=== PATIENT | female | born 1945 | race Caucasian/White ===

== ENCOUNTER → 2019-10-20 | Outpatient (CLI) | payer MEDICARE ==
--- NOTE | 2019-10-20 14:09 | MR ---
EXAMINATION TYPE: MR knee RT wo con DATE OF EXAM: 10/20/2019 COMPARISON: None HISTORY: Right knee pain TECHNIQUE: Multiplanar, multisequence imaging of the right knee is performed without IV contrast. FINDINGS: Some motion artifact does limit the images and interpretation. MEDIAL MENISCUS: There is a complex tear of the posterior horn of the medial meniscus with both obliq ue, radial, and longitudinal components. There is associated meniscal extrusion of 3 mm. Fluid is see n surrounding the meniscus without well-formed cyst. LATERAL MENISCUS: Anterior and posterior horns are intact without tear. CRUCIATE LIGAMENTS: The anterior and posterior cruciate ligaments are intact. There is high signal th roughout the mid and distal fibers of the anterior cruciate ligament without discontinuity. COLLATERAL LIGAMENTS: There is high signal seen both superficial and deep to the mid and posterior fi bers of the medial collateral ligament. The most posterior fibers are discontinuous at their insertio n. Low-grade partial-thickness tear and mid grade sprain. The lateral collateral ligament complex is intact and unremarkable. EXTENSOR MECHANISM: Visualized quadriceps and patellar tendons are intact. High signal is seen of the insertional fibers of the patellar tendon. EFFUSION: No significant suprapatellar joint effusion. POPLITEAL CYST: Elongated multiloculated popliteal cyst measuring 6.3 cm. TRICOMPARTMENT SPACES: There is tricompartmental joint space narrowing with small marginal osteophyte s. Findings are greatest in the patellofemoral compartment. CARTILAGE: There is full-thickness chondral loss of the weightbearing surface of the medial femoral c ondyle measuring 1.2 x 1.2 cm. There is global thinning of the medial compartment cartilage. The late ral compartment cartilage demonstrates signal heterogeneity without focal full-thickness defect. The patellofemoral cartilage demonstrates full-thickness chondral defect of the lateral facet measuring 8 mm with underlying early subchondral cysts and foci of bone marrow edema. Small fissures are seen in the medial facet and trochlea. BONE MARROW SIGNAL: Medial tibial plateau subchondral cyst and patellar subchondral cysts are seen. OTHER: Nonspecific prepatellar and peripatellar subcutaneous edema. Incidentally noted lateral subcu taneous varicosities. IMPRESSION: 1. Low-grade partial-thickness tear of the posterior insertional fibers of the medial collateral liga ment and mid grade medial collateral ligament sprain. 2. Complex tear of the posterior horn of the medial meniscus with associated meniscal extrusion. 3. Moderate tricompartmental arthropathy and chondrosis with full-thickness cartilaginous defects of the medial compartment and lateral patellar facet. 4. Insertional tendinosis of the patellar tendon and overlying subcutaneous edema. 5. Low-grade anterior cruciate ligament sprain.
== END | disposition home or self-care (01) ==
LOC: RADMRIMAIN 08:50
PROVIDERS: ATTEND Orthopaedic Surgery Adult Reconstructive Orthopaedic Surgery
DX: S83.241A Other tear of medial meniscus, current injury, right knee, initial encounter (principal); S83.411A Sprain of medial collateral ligament of right knee, initial encounter; S83.511A Sprain of anterior cruciate ligament of right knee, initial encounter; M17.11 Unilateral primary osteoarthritis, right knee; M67.863 Other specified disorders of tendon, right knee

== ENCOUNTER 2020-11-25 07:34 | Inpatient (IN) | payer MEDICARE ==
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
[2020-11-25 08:20] LABS: Basophils # (A) 0.1 k/uL (0-0.2); Basophils % (A) 1 %; Eosinophils # (A) 0.1 k/uL (0-0.7); Eosinophils % (A) 1 %; HCT 42.2 % (34.0-46.0); HGB 14.1 gm/dL (11.4-16.0); Lymphocytes # (A) 1.5 k/uL (1.0-4.8); Lymphocytes % (A) 12 %; MCH 30.3 pg (25.0-35.0); MCHC 33.4 g/dL (31.0-37.0); MCV 90.8 fL (80.0-100.0); Mean Platelet Volume 7.4; Monocytes # (A) 0.8 k/uL (0-1.0); Monocytes % (A) 6 %; Neutrophils # (A) 9.6 k/uL (1.3-7.7); Neutrophils % (A) 78 %; Platelet Count 221 k/uL (150-450); RBC 4.65 m/uL (3.80-5.40); RDW 13.1 % (11.5-15.5); WBC 12.2 k/uL (3.8-10.6)
[2020-11-25 08:30] LABS: Calcium 9.2 mg/dL (8.4-10.2); Magnesium 1.7 mg/dL (1.6-2.3); Potassium 4.2 mmol/L (3.5-5.1); Total Protein 7.1 g/dL (6.3-8.2)
--- NOTE | 2020-11-25 08:37 | XR ---
EXAMINATION TYPE: XR chest 2V DATE OF EXAM: 11/25/2020 COMPARISON: NONE HISTORY: Shortness of breath TECHNIQUE: Frontal and lateral views of the chest are obtained. FINDINGS: Scattered senescent parenchymal changes noted. Hyperinflation compatible with COPD. No evidence for infiltrate. No evidence for atelectasis. Heart size is stable. Mediastinal structures are stable and grossly unremarkable. No evidence for hilar prominence. Degenerative changes dorsal spine. IMPRESSION: 1. No evidence for acute pulmonary disease.
[2020-11-25 08:39] LABS: D-Dimer 0.29 mg/L FEU (<0.60); Prothrombin Time 10.8 sec (9.0-12.0)
[2020-11-25] MEDS ORDERED: NALOXONE 0.4 MG/ML 1 ML VIAL IV PRN (10:19)
[2020-11-25 10:41] LABS: T4, Free (Free Thyroxine) 1.7 ng/dL (0.78-2.19)
[2020-11-25] MEDS ORDERED: BUMETANIDE 0.5 MG TABLET PO PRN (11:40)
[2020-11-25] MEDS ORDERED: METOPROLOL TARTRATE 25 MG TAB PO SCH (11:45)
[2020-11-25] MEDS ORDERED: ATORVASTATIN 20 MG TAB PO SCH (11:45)
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
[2020-11-25] MEDS: LEVOTHYROXINE 75 MCG TAB PO SCH (12:15)
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
[2020-11-25] MEDS: METOPROLOL TARTRATE 50 MG TAB PO SCH ×2 (14:17→22:31)
[2020-11-25] MEDS: PROPAFENONE 150 MG TAB PO SCH ×2 (15:42→22:28)
[2020-11-25] MEDS ORDERED: METOPROLOL TARTRATE 50 MG TAB PO SCH (21:00)
[2020-11-25] MEDS: ATORVASTATIN 20 MG TAB PO SCH (22:28)
[2020-11-25] MEDS: APIXABAN 5 MG TAB PO SCH (22:28)
[2020-11-26] MEDS: LEVOTHYROXINE 75 MCG TAB PO SCH (05:15)
[2020-11-26] MEDS ORDERED: AMINOPHYLLINE 500 MG/20 ML VIAL IV PRN (08:25)
[2020-11-26] MEDS ORDERED: REGADENOSON 0.4 MG/5 ML SYRINGE IV PRN (08:25)
[2020-11-26] MEDS ORDERED: CAFFEINE CITRATE 60 MG/3 ML VIAL IV PRN (08:25)
[2020-11-26] MEDS: PROPAFENONE 150 MG TAB PO SCH ×3 (08:26→21:00)
[2020-11-26] MEDS: APIXABAN 5 MG TAB PO SCH ×2 (08:27→21:00)
[2020-11-26] MEDS: LOSARTAN 50 MG TAB PO SCH (08:27)
[2020-11-26] MEDS: POTASSIUM CHLORIDE ER 10 MEQ TAB.ER.PRT PO SCH (08:27)
[2020-11-26] MEDS: METOPROLOL TARTRATE 50 MG TAB PO SCH ×3 (08:27→21:00)
[2020-11-26] MEDS: TIMOLOL 0.5% OPHTH DROPS 5 ML BTL BOTH EYES SCH (08:28)
[2020-11-26] MEDS: DORZOLAMIDE HCL 2% DROPS 10 ML BTL BOTH EYES SCH (08:28)
[2020-11-26 09:20] LABS: Basophils # (A) 0.04 X 10*3/uL (0.00-0.10); Basophils % (A) 0.6 %; Eosinophils # (A) 0.08 X 10*3/uL (0.04-0.35); Eosinophils % (A) 1.2 %; HCT 37.1 % (37.2-46.3); HGB 11.8 g/dL (12.0-15.0); Lymphocytes # (A) 1.92 X 10*3/uL (0.90-5.00); MCH 29.3 pg (27.0-32.0); MCHC 31.8 g/dL (32.0-37.0); MCV 92.1 fL (80.0-97.0); Mean Platelet Volume 10.5 fL (9.5-12.2); Monocytes # (A) 0.88 X 10*3/uL (0.20-1.00); Monocytes % (A) 12.8 %; Neutrophils # (A) 3.91 X 10*3/uL (1.80-7.70); Neutrophils % (A) 57.1 %; Platelet Count 194 X 10*3/uL (140-440); RBC 4.03 X 10*6/uL (4.10-5.20); RDW 13.4 % (11.5-14.5); WBC 6.85 X 10*3/uL (4.50-10.00)
--- NOTE | 2020-11-26 10:00 | ECHOF ---
Referral Reason:sob MEASUREMENTS -------- HEIGHT: 165.1 cm WEIGHT: 106.6 kg BP: IVSd: 1.3 cm (0.6 - 1.1) LVIDd: 3.3 cm (3.9 - 5.3) LVPWd: 1.5 cm (0.6 - 1.1) IVSs: 1.9 cm LVIDs: 2.9 cm LVPWs: 1.7 cm LAESV Index (A-L): 40.14 ml/m Ao Diam: 3.6 cm (2.0 - 3.7) AV Cusp: 1.9 cm (1.5 - 2.6) MV EXCURSION: 17.722 mm (> 18.000) MV EF SLOPE: 128 mm/s (70 - 150) EPSS: 0.4 cm RAP: 5.00 mmHg RVSP: 27.13 mmHg FINDINGS -------- Atrial fibrillation. This was a technically adequate study. The left ventricular size is normal. There is mild concentric left ventricular hypertrophy. Overa ll left ventricular systolic function is low-normal with, an EF between 50 - 55 %. The right ventricle is normal in size. LA is severely dilated >40 ml/m2 The right atrial size is normal. There is mild aortic valve sclerosis. There is mild aortic regurgitation. The mitral valve is normal. Mild mitral regurgitation is present. The tricuspid valve appears structurally normal. Mild tricuspid regurgitation present. Right vent ricular systolic pressure is normal at < 35 mmHg. There is no pulmonic regurgitation present. The aortic root size is normal. Echo free space represents a pericardial fat pad. CONCLUSIONS -------- 1. Atrial fibrillation. 2. There is mild concentric left ventricular hypertrophy. 3. Overall left ventricular systolic function is low-normal with, an EF between 50 - 55 %. 4. LA is severely dilated >40 ml/m2 5. There is mild aortic regurgitation. 6. Mild mitral regurgitation is present. 7. Mild tricuspid regurgitation present. 8. Echo free space represents a pericardial fat pad. NURSING ASSOC: Nora Patel, VANESA
[2020-11-26 11:08] LABS: African American GFR (CKD) 84.2 (60.0-200.0); Anion Gap 10.8 mmol/L (4.00-12.00); BUN/Creat Ratio 21.25 Ratio (12.00-20.00); Calcium 8.4 mg/dL (8.7-10.3); Carbon Dioxide 24.2 mmol/L (21.6-31.8); Non-African American GFR(CKD) 72.6 (60.0-200.0); Potassium 3.9 mmol/L (3.5-5.5)
--- NOTE | 2020-11-26 11:15 | P.PN ---
Subjective HISTORY OF PRESENTING ILLNESS This is a pleasant 75-year-old female past medical history significant for atrial fibrillation on eliquis, hypertension, sleep apnea, dyslipidemia and former nitocine dependence. She follows in the office with Dr. Colin in [facility]. She is seen and examined resting comfortably in no acute distress. She continues to be in atrial fibrillation with mostly controlled ventricular rates. She continues to feel some mild shortness of breath. She denies any further sensations of chest pain. Blood pressure 137/73 heart rate 98 afebrile and maintaining oxygen saturation on room air. Office note from her primary reel winder reveals she is paroxysmal atrial fibrillation, she was in sinus mechanism when she saw him last year. Echocardiogram obtained revealed preserved LV systolic function with EF 50-55%, severely dilated LA, mild MR and mild TR. Laboratory data reviewed, WBC 6.8, hemoglobin 11.8, platelets 194, sodium 141, potassium 3.9, creatinine 0.8 and cardiac enzymes negative 3. PHYSICAL EXAMINATION CONSTITUTIONAL: No apparent distress. Obese. HEENT: Head is normocephalic. Pupils are equal, round. Sclerae anicteric. Mucous membranes of the mouth are moist. No JVD. No carotid bruit. CHEST EXAMINATION: Lungs are clear to auscultation. No chest wall tenderness is noted on palpation or with deep breathing. HEART EXAMINATION: Irregular rate and rhythm. S1, S2 heard. Soft systolic eject ion murmur at the base, no gallops or rub. Distant heart sounds. EXTREMITIES: 2+ peripheral pulses, trace lower extremity edema and no calf tenderness. ASSESSMENT Atrial fibrillation with rapid ventricular rate, unknown if persistent or paroxysmal Leukocytosis Chest pain Hypertension Dyslipidemia Obesity, BMI 39 PLAN Proceed with Lexiscan stress test to assess for reversible cardiac ischemia. If there is an abnormality noted we will consider proceeding with cardiac catheterization. Otherwise, her symptoms may be related to atrial fibrillation. She may require cardioversion or increasing of rythmol. Further recommendations to follow based on clinical course. Nurse Practitioner note has been reviewed, I agree with a documented findings and plan of care. Patient was seen and examined. Objective - Vital Signs Vital signs: Vital Signs Temp 98.1 F 11/26/20 07:33 Pulse 98 11/26/20 07:57 Resp 18 11/26/20 07:57 BP 137/73 11/26/20 07:33 Pulse Ox 97 11/26/20 07:33 Intake & Output 11/25/20 11/26/20 11/26/20 18:59 06:59 18:59 Weight 106.594 kg 106.59 kg Other: Voiding Method Toilet Toilet # Voids 2 2 - Labs CBC & Chem 7: 11/26/20 05:44 11/25/20 08:09 Labs: Abnormal Lab Results - Last 24 Hours (Table) 11/26/20 Range/Units 05:44 RBC 4.03 L (4.10-5.20) X 10*6/uL Hgb 11.8 L (12.0-15.0) g/dL Hct 37.1 L (37.2-46.3) % MCHC 31.8 L (32.0-37.0) g/dL
--- NOTE | 2020-11-26 12:20 | NM ---
EXAMINATION TYPE: NM stress lexiscan cardiolite DATE OF EXAM: 11/26/2020 COMPARISON: NONE HISTORY: Chest pain TECHNIQUE: After the intravenous administration of 9.7 mCi Tc 99m Sestamibi - Cardiolite resting SPE CT images acquired 60 minutes post injection. The patient received 0.4mg Lexiscan, 25.5 mCi Tc 99m Sestamibi - Stress images obtained [address] injection FINDINGS: There is diminished radiotracer accumulation along the anterior wall within the mid to distal portion of the stress images. This has milder diminished radiotracer on the resting images. Some stress-laurie esther ischemic change should be considered. On the stress images near the cardiac base there is some diminished radiotracer accumulation at the a nteroseptal wall which has better visualization on the resting images which can be some additional st ress-induced ischemic change. Correlate with EKG changes. Radiotracer distribution otherwise appears matched without additional stress-induced ischemic changes . Polar maps appear to underestimate the apparent defects. Gated analysis shows estimated left ventricular ejection fraction of 67 %. Dyskinesia of the anterior wall at the cardiac apex is present. IMPRESSION: 1. Mid to distal anterior wall stress-induced ischemic change to mild degree. Correlate with EKG ray ges. 2. Some anterior septal wall defect may be present near the cardiac base. 3. Normal ejection fraction of 67%. 4. Dyskinesia of the anterior wall near the cardiac apex
--- NOTE | 2020-11-26 13:00 | EST ---
EXERCISE STRESS AGE: 75 SEX: Female HT: 5'5" WT: 234 PROTOCOL: Lexiscan STAGE: N/A DURATION OF EXERCISE: 5 min. HEART RATE REST: 80 BLOOD PRESSURE REST: 116/95 MAXIMUM HEART RATE ACHIEVED: 85 MAXIMUM BLOOD PRESSURE: 121/81 85% MPHR: 124 100% MPHR: 146 METS: N/A INDICATIONS: Afib with RVR, chest pain CLINICAL INFORMATION: Baseline rhythm is atrial fibrillation with right bundle branch block, rate of 80. Baseline blood pressure 116/95 mmHg. Patient received injection of Lexiscan. Electrocardiograph monitoring revealed no evidence of diagnostic ischemic ST deviation. Cardiolite was injected per protocol. CONCLUSION: 1. Nondiagnostic electrocardiograph stress testing. 2. Nuclear images will be reported separately. MMODL / IJN: [id number] /
--- NOTE | 2020-11-26 14:40 | P.PN ---
Progress Note - Text Abnormal stress test results discussed with the patient and her sister who is at the bedside. The patient was given the option of having a left heart catheterization here with Dr. Urrutia or going to have it done with her primary interactive art director. She would like to think and talk more in depth with her family before making a decision. If she opts for Dr. Urrutia we would recommend holding her anti-coagulation and initiating IV heparin for the procedure to be done Sunday.
--- NOTE | 2020-11-26 16:35 | P.PN ---
Subjective Progress Note Date: 11/26/20 Patient is doing well today. She denies any chest pain or shortness of breath. Objective - Vital Signs Vital signs: Vital Signs Temp 98 F 11/26/20 15:00 Pulse 88 11/26/20 15:00 Resp 18 11/26/20 15:00 BP 119/78 11/26/20 15:00 Pulse Ox 97 11/26/20 15:00 Intake & Output 11/25/20 11/26/20 11/26/20 18:59 06:59 18:59 Weight 106.594 kg 106.59 kg Other: Voiding Method Toilet Toilet # Voids 2 1 - Exam General: The patient is awake and alert, in no distress Eye: there is normal conjunctiva bilaterally. Neck: The neck is supple, there is no JVD. Cardiovascular: Normal S1-S2, no S3-S4, no murmurs. Respiratory: Lungs clear to auscultation bilaterally Gastrointestinal: Abdomen is soft, nontender Musculoskeletal: There is no pedal edema. Neurological:. Speech is normal. Skin: Skin is warm and dry - Labs CBC & Chem 7: 11/26/20 05:44 11/26/20 05:44 Labs: Abnormal Lab Results - Last 24 Hours (Table) 11/26/20 11/26/20 Range/Units 05:44 05:44 RBC 4.03 L (4.10-5.20) X 10*6/uL Hgb 11.8 L (12.0-15.0) g/dL Hct 37.1 L (37.2-46.3) % MCHC 31.8 L (32.0-37.0) g/dL BUN/Creatinine Ratio 21.25 H (12.00-20.00) Ratio Calcium 8.4 L (8.7-10.3) mg/dL Assessment and Plan Assessment: 1. Paroxysmal atrial fibrillation with rapid ventricular response, patient was seen and evaluated by cardiology. Metoprolol dose increased to 50 mg twice daily. Continue home dose of Rythmol. 2. Chest tightness, patient had the stress test that was mildly positive. She was offered left heart catheterization here in the hospital Sunday versus going home and following up with her roof slater but she elected to stay in the hospital for left heart cath on Sunday 3. Back pain, now resolved. with degenerative joint disease noted on x-ray. May use Tylenol as needed. 3. Hypothyroidism: Continue home dose of Synthroid. Thyroid function test within normal/acceptable range 4. Hypertension, continue home regimen Today, I reviewed her medication list and lab work results. Continue telemetry monitoring. Patient is full code.
[2020-11-26] MEDS: ATORVASTATIN 20 MG TAB PO SCH (21:00)
[2020-11-27] MEDS: LEVOTHYROXINE 75 MCG TAB PO SCH (05:37)
[2020-11-27] MEDS: LOSARTAN 50 MG TAB PO SCH (08:07)
[2020-11-27] MEDS: PROPAFENONE 150 MG TAB PO SCH ×3 (08:08→21:14)
[2020-11-27] MEDS: METOPROLOL TARTRATE 50 MG TAB PO SCH ×2 (08:08→21:14)
[2020-11-27] MEDS: DORZOLAMIDE HCL 2% DROPS 10 ML BTL BOTH EYES SCH (08:10)
[2020-11-27] MEDS: TIMOLOL 0.5% OPHTH DROPS 5 ML BTL BOTH EYES SCH (08:10)
[2020-11-27] MEDS: POTASSIUM CHLORIDE ER 10 MEQ TAB.ER.PRT PO SCH (08:13)
[2020-11-27] MEDS ORDERED: HEPARIN SODIUM,PORCINE 5,000 UNIT/ML 1 ML VIAL IV ONE (10:11)
[2020-11-27] MEDS ORDERED: ALPRAZolam 0.5 MG TAB PO PRN (10:48)
[2020-11-27] MEDS ORDERED: ALPRAZolam 0.25 MG TAB PO PRN (10:48)
[2020-11-27] MEDS ORDERED: SODIUM CHLORIDE 0.9% 1,000 ML in EMPTY BAG 1 BAG IV ONE (10:48)
[2020-11-27] MEDS ORDERED: NITROGLYCERIN SL TABS 0.4 MG TAB SUBLINGUAL PRN (10:48)
--- NOTE | 2020-11-27 10:50 | P.PN ---
Subjective Progress Note Date: 11/27/20 HISTORY OF PRESENTING ILLNESS This is a pleasant 75-year-old female past medical history significant for atrial fibrillation on eliquis, hypertension, sleep apnea, dyslipidemia and former nitocine dependence. She follows in the office with Dr. Colin in [facility]. She is seen and examined resting comfortably in no acute distress. She continues to be in atrial fibrillation with mostly controlled ventricular rates. She continues to feel some mild shortness of breath. She denies any further sensations of chest pain. Blood pressure 137/73 heart rate 98 afebrile and maintaining oxygen saturation on room air. Office note from her primary aerologist reveals she is paroxysmal atrial fibrillation, she was in sinus mechanism when she saw him last year. Echocardiogram obtained revealed preserved LV systolic function with EF 50-55%, severely dilated LA, mild MR and mild TR. Laboratory data reviewed, WBC 6.8, hemoglobin 11.8, platelets 194, sodium 141, potassium 3.9, creatinine 0.8 and cardiac enzymes negative 3. 11/27: Patient received her last dose of eliquis last evening. Heparin drip will be started this morning. Patient complains of discomfort in the upper back right side today which she thinks is related to the bed. She is found sitting in recliner. She denies any chest pain. She does have shortness of breath with activity such as walking to the bathroom. Heart rate is running in the 80s and 90s, blood pressure 141/78, pulse ox 96% on room air. PHYSICAL EXAMINATION CONSTITUTIONAL: No apparent distress. Obese. HEENT: Head is normocephalic. Pupils are equal, round. Sclerae anicteric. Mucous membranes of the mouth are moist. No JVD. No carotid bruit. CHEST EXAMINATION: Lungs are clear to auscultation. No chest wall tenderness is noted on palpation or with deep breathing. HEART EXAMINATION: Irregular rate and rhythm. S1, S2 heard. Soft systolic ejection murmur at the base, no gallops or rub. Distant heart sounds. EXTREMITIES: 2+ peripheral pulses, trace lower extremity edema and no calf tenderness. ASSESSMENT Atrial fibrillation with rapid ventricular rate, unknown if persistent or paroxysmal Leukocytosis Chest pain Hypertension Dyslipidemia Obesity, BMI 39 PLAN Lexiscan stress test was abnormal and patient was provided option of heart catheterization which is scheduled for Sunday with Dr. Samman Continue brass chaser Further recommendations to follow based on clinical course. Nurse Practitioner note has been reviewed, I agree with a documented findings and plan of care. Patient was seen and examined. Objective - Vital Signs Vital signs: Vital Signs Temp 98.1 F 11/27/20 07:00 Pulse 90 11/27/20 07:00 Resp 16 11/27/20 07:00 BP 141/78 11/27/20 07:00 Pulse Ox 96 11/27/20 07:00 Intake & Output 11/26/20 11/27/20 11/27/20 18:59 06:59 18:59 Weight 106.59 kg Other: Voiding Method Toilet Toilet # Voids 1 2 - Labs CBC & Chem 7: 11/26/20 05:44 11/26/20 05:44 Labs: Abnormal Lab Results - Last 24 Hours (Table) 11/26/20 Range/Units 05:44 BUN/Creatinine Ratio 21.25 H (12.00-20.00) Ratio Calcium 8.4 L (8.7-10.3) mg/dL
[2020-11-27 11:12] LABS: Partial Thromboplastin Time 23.7 sec (22.0-30.0)
--- NOTE | 2020-11-27 11:42 | P.PN ---
Subjective Progress Note Date: 11/27/20 Patient is doing well today. She denies any chest pain or shortness of breath. No acute events overnight reported by nursing staff Objective - Vital Signs Vital signs: Vital Signs Temp 98.1 F 11/27/20 07:00 Pulse 90 11/27/20 07:00 Resp 16 11/27/20 07:00 BP 141/78 11/27/20 07:00 Pulse Ox 96 11/27/20 07:00 Intake & Output 11/26/20 11/27/20 11/27/20 18:59 06:59 18:59 Weight 106.59 kg Other: Voiding Method Toilet Toilet # Voids 1 2 - Exam General: The patient is awake and alert, in no distress Eye: there is normal conjunctiva bilaterally. Neck: The neck is supple, there is no JVD. Cardiovascular: Normal S1-S2, no S3-S4, no murmurs. Respiratory: Lungs clear to auscultation bilaterally Gastrointestinal: Abdomen is soft, nontender Musculoskeletal: There is no pedal edema. Neurological:. Speech is normal. Skin: Skin is warm and dry - Labs CBC & Chem 7: 11/26/20 05:44 11/26/20 05:44 Assessment and Plan Assessment: This is a 75-year-old female with past medical history noted below who presented to the emergency room with chest tightness and back pain. Patient was evaluated in the ER and admitted to the hospital for further management of her medical problems noted below. 1. Paroxysmal atrial fibrillation with rapid ventricular response, patient was seen and evaluated by cardiology. Metoprolol dose increased to 50 mg twice daily. Continue home dose of Rythmol. 2. Chest tightness, patient had the stress test that was mildly positive. She is scheduled for left heart catheterization on Sunday. 3. Back pain, now resolved. with she degenerative joint disease noted on x- ray. May use Tylenol as needed. 3. Hypothyroidism: Continue home dose of Synthroid. Thyroid function test within normal/acceptable range 4. Hypertension, continue home regimen Today, I reviewed her medication list and lab work results. cardiology would like to discontinue Eliquis and start IV heparin drip prior to heart cath. Continue telemetry monitoring. repeat Work in the morning Patient is full code.
[2020-11-27] MEDS: APIXABAN 5 MG TAB PO SCH (11:45)
[2020-11-27] MEDS: HEPARIN SOD,PORK IN 0.45% NACL 25,000 UNIT in 0.45% NACL 1 250ML.BAG IV SCH (13:10)
[2020-11-27] MEDS ORDERED: ACETAMINOPHEN TAB 325 MG TAB PO PRN (13:20)
[2020-11-27 17:26] LABS: Glucose,Whole Blood 94 mg/dL (75-99)
[2020-11-27] MEDS: ATORVASTATIN 20 MG TAB PO SCH (21:14)
[2020-11-27] MEDS: HEPARIN SODIUM,PORCINE 5,000 UNIT/ML 1 ML VIAL IV PRN (21:15)
[2020-11-28] MEDS: LEVOTHYROXINE 75 MCG TAB PO SCH (06:03)
--- NOTE | 2020-11-28 08:14 | P.PN ---
Subjective Progress Note Date: 11/28/20 HISTORY OF PRESENTING ILLNESS This is a pleasant 75-year-old female past medical history significant for atrial fibrillation on eliquis, hypertension, sleep apnea, dyslipidemia and former nitocine dependence. She follows in the office with Dr. Colin in [facility]. She is seen and examined resting comfortably in no acute distress. She continues to be in atrial fibrillation with mostly controlled ventricular rates. She continues to feel some mild shortness of breath. She denies any further sensations of chest pain. Blood pressure 137/73 heart rate 98 afebrile and maintaining oxygen saturation on room air. Office note from her primary articulation officer reveals she is paroxysmal atrial fibrillation, she was in sinus mechanism when she saw him last year. Echocardiogram obtained revealed preserved LV systolic function with EF 50-55%, severely dilated LA, mild MR and mild TR. Laboratory data reviewed, WBC 6.8, hemoglobin 11.8, platelets 194, sodium 141, potassium 3.9, creatinine 0.8 and cardiac enzymes negative 3. 11/27: Patient received her last dose of eliquis last evening. Heparin drip will be started this morning. Patient complains of discomfort in the upper back right side today which she thinks is related to the bed. She is found sitting in recliner. She denies any chest pain. She does have shortness of breath with activity such as walking to the bathroom. Heart rate is running in the 80s and 90s, blood pressure 141/78, pulse ox 96% on room air. 11/28: Patient has been in and out of atrial fibrillation overnight but heart rate has been less than 100. She was started on heparin drip yesterday in preparation for heart catheterization for Sunday. Patient has been afebrile, heart rate running between 76 and 92, blood pressure 157/88, pulse ox 98% on room air. Patient denies having any chest pain, shortness of breath, lightheadedness or dizziness. Patient does have mildexertional dyspnea with walking to the bathroom. Patient is very concerned about getting her second Covid 19 vaccine which is scheduled on Sunday at noon in [place]. Advised that she most likely will need to postpone this. PHYSICAL EXAMINATION CONSTITUTIONAL: No apparent distress. Obese. HEENT: Head is normocephalic. Pupils are equal, round. Sclerae anicteric. Mucous membranes of the mouth are moist. No JVD. No carotid bruit. CHEST EXAMINATION: Lungs are clear to auscultation. No chest wall tenderness is noted on palpation or with deep breathing. HEART EXAMINATION: Irregular rate and rhythm. S1, S2 heard. Soft systolic ejection murmur at the base, no gallops or rub. Distant heart sounds. EXTREMITIES: 2+ peripheral pulses, trace bilaterallower extremity edema and no calf tenderness. ASSESSMENT Atrial fibrillation with rapid ventricular rate, paroxysmal Leukocytosis Chest pain, rule out coronary artery disease Hypertension Dyslipidemia Obesity, BMI 39 PLAN Lexiscan stress test was abnormal and patient was provided option of heart catheterization which is scheduled for Sunday with Dr. Urrutia Continue cardiac monitor technician Continue Heparin drip, discontinue at 4:30 AM on Sunday Continue current cardiac medications Further recommendations to follow based on clinical course. Nurse Practitioner note has been reviewed, I agree with a documented findings and plan of care. Patient was seen and examined. Objective - Vital Signs Vital signs: Vital Signs Temp 97.8 F 11/28/20 07:00 Pulse 92 11/28/20 07:00 Resp 17 11/28/20 07:00 BP 157/88 11/28/20 07:00 Pulse Ox 98 11/28/20 07:00 Intake & Output 11/27/20 11/28/20 11/28/20 18:59 06:59 18:59 Intake Total 175.889 Balance 175.889 Intake: Intake, IV Titration 175.889 Amount Heparin Sod,Pork in 0.45% 175.889 NaCl 25,000 unit In 0.45 % NaCl 1 250ml.bag @ 9. 382 UNITS/KG/HR 10 mls/hr IV .Q24H [facility] Rx#: [id number] Other: Voiding Method Toilet # Voids 1 2 - Labs CBC & Chem 7: 11/28/20 04:23 11/26/20 05:44 Labs: Abnormal Lab Results - Last 24 Hours (Table) 11/27/20 11/27/20 11/28/20 Range/Units 15:58 20:02 04:23 APTT 51.2 H 40.1 H 79.2 H (22.0-30.0) sec
[2020-11-28] MEDS: TIMOLOL 0.5% OPHTH DROPS 5 ML BTL BOTH EYES SCH (08:51)
[2020-11-28] MEDS: DORZOLAMIDE HCL 2% DROPS 10 ML BTL BOTH EYES SCH (08:51)
[2020-11-28] MEDS: PROPAFENONE 150 MG TAB PO SCH ×3 (08:52→23:49)
[2020-11-28] MEDS: POTASSIUM CHLORIDE ER 10 MEQ TAB.ER.PRT PO SCH (08:52)
[2020-11-28] MEDS: LOSARTAN 50 MG TAB PO SCH (08:52)
[2020-11-28] MEDS: METOPROLOL TARTRATE 50 MG TAB PO SCH ×2 (08:57→23:49)
[2020-11-28 09:59] LABS: Basophils # (A) 0.04 X 10*3/uL (0.00-0.10); Basophils % (A) 0.6 %; Eosinophils # (A) 0.16 X 10*3/uL (0.04-0.35); Eosinophils % (A) 2.4 %; HCT 38.2 % (37.2-46.3); HGB 12.4 g/dL (12.0-15.0); Lymphocytes # (A) 2.19 X 10*3/uL (0.90-5.00); Lymphocytes % (A) 33.1 %; MCH 29.9 pg (27.0-32.0); MCHC 32.5 g/dL (32.0-37.0); Mean Platelet Volume 10.8 fL (9.5-12.2); Monocytes # (A) 0.72 X 10*3/uL (0.20-1.00); Monocytes % (A) 10.9 %; Neutrophils # (A) 3.49 X 10*3/uL (1.80-7.70); Neutrophils % (A) 52.7 %; Platelet Count 204 X 10*3/uL (140-440); RBC 4.15 X 10*6/uL (4.10-5.20); RDW 13.3 % (11.5-14.5); WBC 6.62 X 10*3/uL (4.50-10.00)
--- NOTE | 2020-11-28 11:13 | P.PN ---
Subjective Progress Note Date: 11/28/20 Patient is doing well today. She denies any chest pain or shortness of breath. No acute events overnight reported by nursing staff Awaiting left heart catheterization tomorrow Objective - Vital Signs Vital signs: Vital Signs Temp 97.8 F 11/28/20 07:00 Pulse 91 11/28/20 08:00 Resp 17 11/28/20 07:00 BP 157/88 11/28/20 07:00 Pulse Ox 98 11/28/20 07:00 Intake & Output 11/27/20 11/28/20 11/28/20 18:59 06:59 18:59 Intake Total 175.889 Balance 175.889 Intake: Intake, IV Titration 175.889 Amount Heparin Sod,Pork in 0.45% 175.889 NaCl 25,000 unit In 0.45 % NaCl 1 250ml.bag @ 9. 382 UNITS/KG/HR 10 mls/hr IV .Q24H [facility] Rx#: [id number] Other: Voiding Method Toilet # Voids 1 2 - Exam General: The patient is awake and alert, in no distress Eye: there is normal conjunctiva bilaterally. Neck: The neck is supple, there is no JVD. Cardiovascular: Normal S1-S2, no S3-S4, no murmurs. Respiratory: Lungs clear to auscultation bilaterally Gastrointestinal: Abdomen is soft, nontender Musculoskeletal: There is no pedal edema. Neurological:. Speech is normal. Skin: Skin is warm and dry - Labs CBC & Chem 7: 11/28/20 04:23 11/26/20 05:44 Labs: Abnormal Lab Results - Last 24 Hours (Table) 11/27/20 11/27/20 11/28/20 Range/Units 15:58 20:02 04:23 APTT 51.2 H 40.1 H 79.2 H (22.0-30.0) sec Assessment and Plan Assessment: This is a 75-year-old female with past medical history noted below who presented to the emergency room with chest tightness and back pain. Patient was evaluated in the ER and admitted to the hospital for further management of her medical problems noted below. 1. Paroxysmal atrial fibrillation with rapid ventricular response, patient was seen and evaluated by cardiology. Metoprolol dose increased to 50 mg twice daily. Continue home dose of Rythmol. 2. Chest tightness, patient had the stress test that was mildly positive. She is scheduled for left heart catheterization on Sunday. 3. Back pain, now resolved. with she degenerative joint disease noted on x- ray. May use Tylenol as needed. 3. Hypothyroidism: Continue home dose of Synthroid. Thyroid function test within normal/acceptable range 4. Hypertension, continue home regimen Today, I reviewed her medication list and lab work results. cardiology would like to discontinue Eliquis and start IV heparin drip prior to heart cath. Continue telemetry monitoring. repeat Work in the morning Patient is full code.
[2020-11-28] MEDS: HEPARIN SOD,PORK IN 0.45% NACL 25,000 UNIT in 0.45% NACL 1 250ML.BAG IV SCH (12:43)
[2020-11-28] MEDS: HEPARIN SODIUM,PORCINE 5,000 UNIT/ML 1 ML VIAL IV PRN (12:46)
[2020-11-28] MEDS: ATORVASTATIN 20 MG TAB PO SCH (23:49)
[2020-11-29] MEDS ORDERED: ASPIRIN 325 MG TAB PO ONE (06:00)
[2020-11-29] MEDS ORDERED: ATORVASTATIN 80 MG TAB PO ONE (06:00)
[2020-11-29] MEDS: LEVOTHYROXINE 75 MCG TAB PO SCH (06:31)
[2020-11-29] MEDS ORDERED: HEPARIN SODIUM,PORCINE 2,500 UNIT in SODIUM CHLORIDE 0.9% 250 ML IRRIGATION PRN (07:00)
[2020-11-29] MEDS ORDERED: HEPARIN SODIUM,PORCINE 10,000 UNIT in SODIUM CHLORIDE 0.9% 1,000 ML IRRIGATION PRN (07:00)
[2020-11-29] MEDS: TIMOLOL 0.5% OPHTH DROPS 5 ML BTL BOTH EYES SCH (09:08)
[2020-11-29] MEDS: DORZOLAMIDE HCL 2% DROPS 10 ML BTL BOTH EYES SCH (09:08)
[2020-11-29] MEDS: PROPAFENONE 150 MG TAB PO SCH (09:28)
[2020-11-29] MEDS: POTASSIUM CHLORIDE ER 10 MEQ TAB.ER.PRT PO SCH (09:29)
[2020-11-29] MEDS: LOSARTAN 50 MG TAB PO SCH (09:29)
[2020-11-29] MEDS: METOPROLOL TARTRATE 50 MG TAB PO SCH ×2 (09:29→19:44)
[2020-11-29 09:35] LABS: Basophils # (A) 0.06 X 10*3/uL (0.00-0.10); Eosinophils # (A) 0.16 X 10*3/uL (0.04-0.35); Eosinophils % (A) 2.7 %; HCT 37.6 % (37.2-46.3); HGB 12.6 g/dL (12.0-15.0); Lymphocytes # (A) 2.02 X 10*3/uL (0.90-5.00); Lymphocytes % (A) 34.4 %; MCH 30.3 pg (27.0-32.0); MCHC 33.5 g/dL (32.0-37.0); MCV 90.4 fL (80.0-97.0); Mean Platelet Volume 10.8 fL (9.5-12.2); Monocytes # (A) 0.65 X 10*3/uL (0.20-1.00); Monocytes % (A) 11.1 %; Neutrophils # (A) 2.96 X 10*3/uL (1.80-7.70); Neutrophils % (A) 50.5 %; Platelet Count 229 X 10*3/uL (140-440); RBC 4.16 X 10*6/uL (4.10-5.20); RDW 13.2 % (11.5-14.5); WBC 5.87 X 10*3/uL (4.50-10.00)
[2020-11-29] MEDS ORDERED: LIDOCAINE 1% INJ 10MG/ML (20 ML MDV) ONE (11:54)
[2020-11-29] MEDS ORDERED: VERAPAMIL 2.5 MG/ML 2 ML AMP ONE (11:54)
[2020-11-29] MEDS ORDERED: fentaNYL (PF) 50 MCG/ML 2 ML AMP ONE (11:54)
[2020-11-29] MEDS ORDERED: LIDOCAINE 1% INJ 10MG/ML (20 ML MDV) SQ ONE (12:00)
[2020-11-29] MEDS ORDERED: fentaNYL (PF) 50 MCG/ML 2 ML AMP IV ONE (12:01)
[2020-11-29] MEDS ORDERED: IV FLUID CONTINUATION 950 ML IV ONE (12:01)
[2020-11-29] MEDS ORDERED: VERAPAMIL SYRINGE (5 MG/10 ML) INTRAARTER ONE (12:02)
[2020-11-29] MEDS ORDERED: HEPARIN SODIUM 1,000 UN/ML (10ML VL) ONE (12:05)
[2020-11-29] MEDS ORDERED: HEPARIN SODIUM 1,000 UN/ML (10ML VL) IV ONE (12:07)
[2020-11-29] MEDS ORDERED: IOPAMIDOL-370 125ML BTL INJ ONE (12:09)
[2020-11-29] MEDS ORDERED: RX INFO: IV CONTRAST WAS GIVEN 1 EACH MISC MISCELLANE PRN (12:25)
[2020-11-29] MEDS ORDERED: SODIUM CHLORIDE 0.9% 1,000 ML IV SCH (12:30)
--- NOTE | 2020-11-29 12:52 | CC ---
CARDIAC CATHETERIZATION REPORT Mrs. Atwood is a 75-year-old female with a history of paroxysmal atrial fibrillation, who presented with symptoms of progressive dyspnea and chest discomfort. She was in atrial fibrillation with controlled ventricular response. Her cardiac enzymes were unremarkable, but she underwent a myocardial perfusion imaging that revealed evidence of anterior wall ischemia. In view of that, recommendation was made regarding cardiac catheterization. The procedure as well as the risks and the complications were discussed with the patient who is in full understanding and agreement. PROCEDURE: Patient was brought to the [employer] in the fasting semi-sedated state after receiving fentanyl and Benadryl and achieving moderate conscious sedated state. Using Xylocaine anesthesia and Seldinger technique, a 6-Persian sheath was introduced in the right radial artery. Selective right and left coronary angiography performed using 5-Persian 3.5 bend right and left Sarah Beth catheter. Multiple views of the coronary artery including hemiaxial views were obtained. Following that, a 5-Persian tight pigtail catheter was introduced in the left ventricle and pressures were calculated. Following that, catheter and sheath were removed. Hemostasis was obtained with deployment of a TR band. There was no immediate complication. The patient was returned to her room in stable condition. ' FINDING: LEFT MAIN: This is a large-sized vessel, trifurcating into left circumflex, left anterior descending artery and ramus intermedius. Left main coronary artery has no evidence of high-grade stenosis. LEFT ANTERIOR DESCENDING ARTERY: This is a large-sized vessel reaching to the apex. Tapers down the distal third, giving rise to 2 diagonal branches of small to moderate caliber. The left anterior descending artery as well as branches have no evidence of obstructive coronary artery disease. LEFT CIRCUMFLEX: This is a nondominant vessel giving rise to one obtuse marginal branch of moderate caliber that has no evidence of high-grade stenosis. RAMUS INTERMEDIUS: This is a large-sized vessel reaching to the apical lateral wall that has no evidence of high-grade stenosis. RIGHT CORONARY ARTERY: This is a large dominant vessel bifurcating distally PDA and posterolateral segment and branches. The right PDA reaches to the inferoapical wall. The right coronary artery as well as branches have no evidence of obstructive coronary artery disease. LEFT VENTRICULOGRAM: Left ventriculogram was not performed. HEMODYNAMICS: There was no gradient across the aortic valve. The left ventricular end-diastolic pressure was 12-14 mmHg. CONCLUSION: 1. Normal coronary arteries. 2. Normal left ventricular end-diastolic pressure. 3. Right dominance. RECOMMENDATION: In view of finding anatomy, I recommend continue medical therapy and patient was to be evaluated for MICHAEL guided cardioversion to restore normal sinus rhythm. Those findings and recommendations were discussed with the patient and her family and they are in full understanding and agreement. Duration of sedation is 18 minutes. JAY / ANNABELLAN: [id number] /
--- NOTE | 2020-11-29 12:57 | LTR ---
November 29, 2020 Re: Vicky Dalalrossy Dear Dr. Díaz: I had the opportunity to perform cardiac catheterization on Mrs. Atwood at [facility] on the 29 of November and a full copy of the procedure note will be forwarded to you. In brief, she was found to have no evidence of obstructive coronary artery disease. But because of her persistent atrial fibrillation, I recommend proceeding with transesophageal guided cardioversion, hoping to restore normal sinus rhythm and improve her symptoms. I will keep you updated on her progress. Thank you again for allowing me the opportunity to participate in her care. Please feel free to call for any questions. Sincerely yours, MD JAY Goodson / ANNABELLAN: [id number] /
--- NOTE | 2020-11-29 13:31 | P.PN ---
Subjective Progress Note Date: 11/29/20 Patient is doing well today. She underwent left heart catheterization this morning showing nonobstructive coronary artery disease. She denies any chest pain. She continues to be in A. fib on step down specialist. Heart rate well controlled. Objective - Vital Signs Vital signs: Vital Signs Temp 98.0 F 11/29/20 12:40 Pulse 80 11/29/20 12:40 Resp 16 11/29/20 12:40 BP 127/81 11/29/20 12:40 Pulse Ox 96 11/29/20 12:40 Intake & Output 11/28/20 11/29/20 11/29/20 18:59 06:59 18:59 Intake Total 74.111 50 Balance 74.111 50 Intake: IV 50 Intake, IV Titration 74.111 Amount Heparin Sod,Pork in 0.45% 74.111 NaCl 25,000 unit In 0.45 % NaCl 1 250ml.bag @ 9. 382 UNITS/KG/HR 10 mls/hr IV .Q24H RADHA Rx#: [id number] Other: Voiding Method Toilet # Voids 3 1 1 - Exam General: The patient is awake and alert, in no distress Eye: there is normal conjunctiva bilaterally. Neck: The neck is supple, there is no JVD. Cardiovascular: Normal S1-S2, no S3-S4, no murmurs. Respiratory: Lungs clear to auscultation bilaterally Gastrointestinal: Abdomen is soft, nontender Musculoskeletal: There is no pedal edema. Neurological:. Speech is normal. Skin: Skin is warm and dry - Labs CBC & Chem 7: 11/29/20 05:02 11/26/20 05:44 Labs: Abnormal Lab Results - Last 24 Hours (Table) 11/28/20 11/29/20 Range/Units 19:12 05:02 APTT 48.3 H 78.4 H (22.0-30.0) sec Assessment and Plan Assessment: This is a 75-year-old female with past medical history noted below who presented to the emergency room with chest tightness and back pain. Patient was evaluated in the ER and admitted to the hospital for further management of her medical problems noted below. 1. Paroxysmal atrial fibrillation with rapid ventricular response, patient was seen and evaluated by cardiology. Metoprolol dose increased to 50 mg twice daily. Continue home dose of Rythmol. Patient scheduled 14 guided cardioversion tomorrow 2. Chest tightness, patient had the stress test that was mildly positive. She underwent left heart catheterization on 11/29 showing nonobstructive coronary artery disease 3. Back pain, now resolved. with she degenerative joint disease noted on x- ray. May use Tylenol as needed. 3. Hypothyroidism: Continue home dose of Synthroid. Thyroid function test within normal/acceptable range 4. Hypertension, continue home regimen Today, I reviewed her medication list and lab work results. Continue telemetry monitoring. repeat Work in the morning Patient is full code.
[2020-11-29] MEDS ORDERED: PROPAFENONE 150 MG TAB PO SCH (16:00)
[2020-11-29] MEDS: PROPAFENONE 225 MG TAB PO SCH ×2 (18:00→23:03)
[2020-11-29] MEDS: APIXABAN 5 MG TAB PO SCH (19:44)
[2020-11-29] MEDS: ATORVASTATIN 20 MG TAB PO SCH (19:44)
[2020-11-30] MEDS: LEVOTHYROXINE 75 MCG TAB PO SCH ×2 (05:24→05:27)
[2020-11-30 05:46] LABS: African American GFR (CKD) 69 (>60 ml/min/1.73 sqM); Anion Gap 8 mmol/L; Blood Urea Nitrogen 15 mg/dL (7-17); Calcium 9.1 mg/dL (8.4-10.2); Carbon Dioxide 26 mmol/L (22-30); Chloride 106 mmol/L (98-107); Glucose 103 mg/dL (74-99); Non-African American GFR(CKD) 60 (>60 ml/min/1.73 sqM); Potassium 3.9 mmol/L (3.5-5.1); Sodium 140 mmol/L (137-145)
[2020-11-30] MEDS ORDERED: PROPOFOL 10 MG/ML 20 ML VIAL IV ONE (07:20)
[2020-11-30] MEDS ORDERED: LIDOCAINE 1% INJ 10MG/ML (20 ML MDV) ONE (07:20)
[2020-11-30] MEDS ORDERED: BENZOCAINE SPRAY 1 CAN MUCOUS MEM ONE ×2 (07:25→07:31)
[2020-11-30] MEDS ORDERED: IV FLUID CONTINUATION 1,000 ML IV ONE (07:30)
[2020-11-30] MEDS ORDERED: SODIUM CHLORIDE 0.9% 1,000 ML IV SCH (07:45)
[2020-11-30] MEDS: DORZOLAMIDE HCL 2% DROPS 10 ML BTL BOTH EYES SCH (08:31)
[2020-11-30] MEDS: APIXABAN 5 MG TAB PO SCH (08:31)
[2020-11-30] MEDS: POTASSIUM CHLORIDE ER 10 MEQ TAB.ER.PRT PO SCH (08:31)
[2020-11-30] MEDS: LOSARTAN 50 MG TAB PO SCH (08:31)
[2020-11-30] MEDS: METOPROLOL TARTRATE 50 MG TAB PO SCH (08:31)
[2020-11-30] MEDS: PROPAFENONE 225 MG TAB PO SCH (08:31)
[2020-11-30] MEDS: TIMOLOL 0.5% OPHTH DROPS 5 ML BTL BOTH EYES SCH (08:32)
--- NOTE | 2020-11-30 09:05 | CE ---
CARDIAC ELECTROPHYSIOLOGY REPORT CARDIOVERSION PROCEDURE NOTE: INDICATION: Atrial fibrillation. PROCEDURE: After explaining the procedure to the patient, its risks and the complications and after obtaining transesophageal echocardiogram and obtaining a sedated state, a synchronized biphasic cardioversion using 200 joules was performed with taoist of normal sinus rhythm. There was no immediate complication. JAY / MIKE: [id number] /
[2020-11-30 09:42] VITALS: RESP 16; TEMP 97.5
[2020-11-30 09:44] VITALS: PULSE 57
--- NOTE | 2020-11-30 10:11 | ECHOT ---
TRANSESOPHAGEAL ECHOCARDIOGRAM INDICATION: Atrial fibrillation. PROCEDURE: After explaining the procedure to the patient, its risks and the complications, blood pressure, heart rate, O2 saturation were monitored. The throat was sprayed with Cetacaine. She received sedation per anesthesia department. The probe was introduced into the esophagus without difficulty. Images were obtained. Following that, the probe was removed. There was no immediate complication. FINDINGS: Left atrial size is mildly dilated. Left atrial appendage is normal. Left ventricular size and systolic function normal. The aortic valve, mitral valve, tricuspid and pulmonic valve is normal. There was no pericardial effusion. The descending thoracic aorta appears to be normal. Contrast bubble study revealed very minimal late shunting across the interatrial septum. Doppler pulse wave and color Doppler obtained and revealed mild to moderate mitral with mild aortic regurgitation. There was no shunting by color Doppler study. CONCLUSION: 1. Dilated left atrium with normal appearance left atrial appendage. 2. Normal left ventricular size and systolic function. 3. Mild to moderate mitral with mild aortic regurgitation. 4. Late minimal shunting across the interatrial septum with contrast bubble study. 5. No pericardial effusion. MMODL / IJN: [id number] /
[2020-11-30 10:25] VITALS: BP 107/68
[2020-11-30 11:55] LABS: Basophils # (A) 0.04 X 10*3/uL (0.00-0.10); Basophils % (A) 0.6 %; Eosinophils # (A) 0.11 X 10*3/uL (0.04-0.35); Eosinophils % (A) 1.8 %; HCT 36.8 % (37.2-46.3); HGB 12.1 g/dL (12.0-15.0); Lymphocytes # (A) 1.69 X 10*3/uL (0.90-5.00); MCHC 32.9 g/dL (32.0-37.0); MCV 91.3 fL (80.0-97.0); Mean Platelet Volume 10.2 fL (9.5-12.2); Monocytes # (A) 0.67 X 10*3/uL (0.20-1.00); Monocytes % (A) 10.7 %; Neutrophils # (A) 3.74 X 10*3/uL (1.80-7.70); Neutrophils % (A) 59.6 %; Platelet Count 228 X 10*3/uL (140-440); RBC 4.03 X 10*6/uL (4.10-5.20); RDW 13.2 % (11.5-14.5); WBC 6.27 X 10*3/uL (4.50-10.00)
--- NOTE | 2020-11-30 12:12 | P.DS ---
Providers Date of admission: 11/27/20 08:35 Expected date of discharge: 11/30/20 Attending physician: Enrique Dobbins Consults: 11/25/20 10:21 Consult Physician Urgent Consulting Provider: [facility] Consult Reason/Comments: acute chest pain, afib with rvr Do you want consulting provider notified?: Yes Primary care physician: Yanira Díaz MD Hospital Course: This is a 75-year-old female with past medical history noted below who presented to the emergency room with chest tightness and back pain. Patient was evaluated in the ER and admitted to the hospital for further management of her medical problems noted below. 1. Paroxysmal atrial fibrillation with rapid ventricular response, patient was seen and evaluated by cardiology. She underwent successful MICHAEL guided cardioversion on 11/30. Rythmol dose was adjusted by cardiology. Continue anticoagulation with Eliquis 2. Chest tightness, patient had the stress test that was mildly positive. She underwent left heart catheterization on 11/29 showing nonobstructive coronary artery disease 3. Back pain, now resolved. with she degenerative joint disease noted on x- ray. May use Tylenol as needed. 3. Hypothyroidism: Continue home dose of Synthroid. Thyroid function test within normal/acceptable range 4. Hypertension, continue home regimen Patient was cleared by cardiology for discharge home. She'll continue her home regimen as directed. Follow-up with cardiology and PCP in the office as directed. Physical exam: General: The patient is awake and alert, in no distress Eye: there is normal conjunctiva bilaterally. Neck: The neck is supple, there is no JVD. Cardiovascular: Normal S1-S2, no S3-S4, no murmurs. Respiratory: Lungs clear to auscultation bilaterally Gastrointestinal: Abdomen is soft, nontender Musculoskeletal: There is no pedal edema. Neurological:. Speech is normal. Skin: Skin is warm and dry Patient will be discharged home in a stable condition. For further details about this hospitalization please refer to the electronic chart. Time spent on discharge > 30 minutes including counseling and coordination of care Patient Condition at Discharge: Stable Plan - Discharge Summary Discharge Rx Participant: No New Discharge Prescriptions: New Propafenone [Rythmol] 225 mg PO TID #270 tab Continue Multivit-Min/FA/Lycopen/Lutein [Centrum Silver Tablet] 1 each PO DAILY Magnesium Chloride [Slow-Mag] 64 mg PO DAILY Cyanocobalamin [Vitamin B-12] 1,250 mcg PO DAILY Calcium Carbonate/Vitamin D3 [Calcium 600-Vit D3 5 Mcg (200 Iu)] 1 each PO DAILY [place]hill-3 Fatty Acids/Fish Oil [Fish Oil 1,000 mg Softgel] 900 mg PO DAILY Biotin 5 mg PO DAILY Levothyroxine Sodium [Levoxyl] 150 mcg PO SUTUTHSA Potassium Chloride ER [K-Dur 10] 10 meq PO DAILY Atorvastatin [Lipitor] 20 mg PO DAILY Cholecalciferol (Vitamin D3) [Vitamin D3 (4,000 Iu)] 4,000 unit PO DAILY Bifidobacterium Infantis [Align] 4 mg PO DAILY Metoprolol Tartrate [Lopressor] 25 mg PO BID Losartan Potassium 50 mg PO DAILY Levothyroxine Sodium [Levoxyl] 225 mcg PO MOWEFR Bumetanide [BUMEX] 0.25 mg PO DAILY PRN PRN Reason: Edema Apixaban [Eliquis] 5 mg PO BID Biotin 5 mg PO DAILY Dorzolamide/Timolol/Pf [Dorzolamide 2%-Timolol 0.5%] 1 drop BOTH EYES DAILY Discontinued Propafenone [Rythmol] 150 mg PO TID Discharge Medication List Atorvastatin [Lipitor] 20 mg PO DAILY 05/25/16 [History] Biotin 5 mg PO DAILY 05/25/16 [History] Calcium Carbonate/Vitamin D3 [Calcium 600-Vit D3 5 Mcg (200 Iu)] 1 each PO DAILY 05/25/16 [History] Cyanocobalamin [Vitamin B-12] 1,250 mcg PO DAILY 05/25/16 [History] Levothyroxine Sodium [Levoxyl] 150 mcg PO SUTUTHSA 05/25/16 [History] Magnesium Chloride [Slow-Mag] 64 mg PO DAILY 05/25/16 [History] Multivit-Min/FA/Lycopen/Lutein [Centrum Silver Tablet] 1 each PO DAILY 05/25/16 [History] Parkhill-3 Fatty Acids/Fish Oil [Fish Oil 1,000 mg Softgel] 900 mg PO DAILY 05/25/16 [History] Potassium Chloride ER [K-Dur 10] 10 meq PO DAILY 05/25/16 [History] Apixaban [Eliquis] 5 mg PO BID 11/25/20 [History] Bifidobacterium Infantis [Align] 4 mg PO DAILY 11/25/20 [History] Biotin 5 mg PO DAILY 11/25/20 [History] Bumetanide [BUMEX] 0.25 mg PO DAILY PRN 11/25/20 [History] Cholecalciferol (Vitamin D3) [Vitamin D3 (4,000 Iu)] 4,000 unit PO DAILY 11/25/20 [History] Dorzolamide/Timolol/Pf [Dorzolamide 2%-Timolol 0.5%] 1 drop BOTH EYES DAILY 11/25/20 [History] Levothyroxine Sodium [Levoxyl] 225 mcg PO MOWEFR 11/25/20 [History] Losartan Potassium 50 mg PO DAILY 11/25/20 [History] Metoprolol Tartrate [Lopressor] 25 mg PO BID 11/25/20 [History] Propafenone [Rythmol] 225 mg PO TID #270 tab 11/30/20 [Rx] Follow up Appointment(s)/Referral(s): Yanira Díaz MD [Primary Care Provider] - 1-2 days Yanira Urrutia MD [STAFF PHYSICIAN] - 1 Week Discharge Disposition: HOME SELF-CARE
== END 2020-11-30 14:35 | disposition home or self-care (01) | DRG 287 ==
LOC: EC 07:34 → 6NMEDSUR 10:19 → OBSVTOIN 11-27 08:35 → 6NMEDSUR 11-29 23:23
PROVIDERS: ADMIT Internal Medicine; ATTEND Internal Medicine
PROC: B2111ZZ Fluoroscopy of Multiple Coronary Arteries using Low Osmolar Contrast (ICD-10-PCS; principal; 2020-11-29 09:00)
PROC: 4A023N7 Measurement of Cardiac Sampling and Pressure, Left Heart, Percutaneous Approach (ICD-10-PCS; principal; 2020-11-29 09:00)
PROC: 5A2204Z Restoration of Cardiac Rhythm, Single (ICD-10-PCS; 2020-11-30)
DX: I48.0 Paroxysmal atrial fibrillation (principal); E03.9 Hypothyroidism, unspecified; E66.9 Obesity, unspecified; E78.5 Hyperlipidemia, unspecified; I10 Essential (primary) hypertension; K90.0 Celiac disease; Z20.822 Contact with and (suspected) exposure to COVID-19; D72.829 Elevated white blood cell count, unspecified; I25.10 Atherosclerotic heart disease of native coronary artery without angina pectoris; M51.36 Other intervertebral disc degeneration, lumbar region; Z79.01 Long term (current) use of anticoagulants; Z79.890 Hormone replacement therapy; Z79.899 Other long term (current) drug therapy; Z80.41 Family history of malignant neoplasm of ovary; Z86.718 Personal history of other venous thrombosis and embolism; Z90.710 Acquired absence of both cervix and uterus; Z68.39 Body mass index [BMI] 39.0-39.9, adult
CPT/HCPCS: 36415; 71046; 78452; 80048; 80053; 83690; 83735; 83880; 84439; 84443; 84484; 85025; 85379; 85610; 85730; 87635; 92960; 93005; 93017; 93306; 93312; 93320; 93325; 93458; 99285

== ENCOUNTER 2020-12-27 10:23 | Observation (INO) | payer MEDICARE ==
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
[2020-12-27 11:23] LABS: Basophils # (A) 0.1 k/uL (0-0.2); Basophils % (A) 1 %; Eosinophils # (A) 0.2 k/uL (0-0.7); Eosinophils % (A) 2 %; HCT 42.4 % (34.0-46.0); Lymphocytes # (A) 1.2 k/uL (1.0-4.8); Lymphocytes % (A) 12 %; MCH 30.2 pg (25.0-35.0); MCV 91.4 fL (80.0-100.0); Mean Platelet Volume 7.3; Monocytes # (A) 0.7 k/uL (0-1.0); Monocytes % (A) 7 %; Neutrophils # (A) 7.4 k/uL (1.3-7.7); Neutrophils % (A) 77 %; Platelet Count 233 k/uL (150-450); RBC 4.64 m/uL (3.80-5.40); RDW 13.5 % (11.5-15.5); WBC 9.6 k/uL (3.8-10.6)
[2020-12-27 12:07] LABS: Albumin 4.2 g/dL (3.5-5.0); Calcium 9.5 mg/dL (8.4-10.2); Magnesium 1.7 mg/dL (1.6-2.3); Potassium 4.2 mmol/L (3.5-5.1); Total Bilirubin 0.9 mg/dL (0.2-1.3); Total Protein 7.6 g/dL (6.3-8.2)
[2020-12-27 12:09] LABS: Partial Thromboplastin Time 24.7 sec (22.0-30.0); Prothrombin Time 10.7 sec (9.0-12.0)
--- NOTE | 2020-12-27 12:28 | XR ---
EXAMINATION TYPE: XR chest 2V DATE OF EXAM: 12/27/2020 COMPARISON: 11/25/2020 HISTORY: 75-year-old female with chest pain TECHNIQUE: PA and lateral views FINDINGS: Heart upper limits of normal in size. Atherosclerotic arch calcifications. Hyperinflation. The mild p atchy basilar opacities. Interstitial prominence is unchanged. No pleural effusion. IMPRESSION: Borderline heart size with COPD. Mild patchy basilar areas of atelectasis versus early infiltrates. C linically correlate.
[2020-12-27] MEDS ORDERED: NALOXONE 0.4 MG/ML 1 ML VIAL IV PRN (13:00)
[2020-12-27] MEDS ORDERED: BUMETANIDE 0.5 MG TABLET PO PRN (13:02)
[2020-12-27] MEDS ORDERED: LEVOTHYROXINE 75 MCG TAB PO SCH (14:00)
[2020-12-27] MEDS: PROPAFENONE 225 MG TAB PO SCH ×3 (14:17→21:54)
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
[2020-12-27] MEDS: METOPROLOL TARTRATE 25 MG TAB PO SCH (20:59)
[2020-12-27] MEDS: APIXABAN 5 MG TAB PO SCH (20:59)
[2020-12-27] MEDS ORDERED: ATORVASTATIN 20 MG TAB PO SCH (21:00)
[2020-12-27] MEDS ORDERED: DORZOLAMIDE HCL 2% DROPS 10 ML BTL BOTH EYES SCH (21:00)
[2020-12-27] MEDS ORDERED: TIMOLOL 0.5% OPHTH DROPS 5 ML BTL BOTH EYES SCH (21:00)
[2020-12-28] MEDS ORDERED: LEVOTHYROXINE 75 MCG TAB PO SCH (06:30)
[2020-12-28 07:43] VITALS: BP 139/61; PULSE 80; RESP 18; TEMP 97.9
[2020-12-28] MEDS: METOPROLOL TARTRATE 25 MG TAB PO SCH (08:49)
[2020-12-28] MEDS: APIXABAN 5 MG TAB PO SCH (08:49)
[2020-12-28] MEDS: PROPAFENONE 225 MG TAB PO SCH (08:51)
[2020-12-28] MEDS ORDERED: NON FORMULARY DRUG (Biotin [Biotin] 5 MG Capsule) PO SCH (09:00)
[2020-12-28] MEDS ORDERED: CALCIUM CARB-VIT D 500 MG-5 MCG TAB PO SCH (09:00)
[2020-12-28] MEDS ORDERED: NON FORMULARY DRUG (Omega-3 Fatty Acids/Fish Oil [Fish Oil 1,000 Mg Softgel] 1 EACH Capsul PO SCH (09:00)
[2020-12-28] MEDS ORDERED: POTASSIUM CHLORIDE ER 10 MEQ TAB.ER.PRT PO SCH (09:00)
[2020-12-28] MEDS ORDERED: MULTIVITAMINS, THERA 1 EACH TAB PO SCH (09:00)
[2020-12-28] MEDS ORDERED: LACTOBACILLUS ACIDOPH & BULGAR 1 EACH PACKET PO SCH (09:00)
[2020-12-28] MEDS ORDERED: MAGNESIUM OXIDE 400 MG TAB PO SCH (09:00)
[2020-12-28] MEDS ORDERED: LOSARTAN 50 MG TAB PO SCH (09:00)
[2020-12-28] MEDS ORDERED: CYANOCOBALAMIN 500 MCG TAB PO SCH (09:00)
[2020-12-28] MEDS ORDERED: CHOLECALCIFEROL 25 MCG (1000 IU) TABLET PO SCH (09:00)
[2020-12-28 09:22] LABS: Basophils # (A) 0.04 X 10*3/uL (0.00-0.10); Basophils % (A) 0.6 %; Eosinophils # (A) 0.11 X 10*3/uL (0.04-0.35); Eosinophils % (A) 1.6 %; HCT 36.8 % (37.2-46.3); HGB 12.2 g/dL (12.0-15.0); Lymphocytes # (A) 1.95 X 10*3/uL (0.90-5.00); Lymphocytes % (A) 28.2 %; MCH 29.9 pg (27.0-32.0); MCHC 33.2 g/dL (32.0-37.0); MCV 90.2 fL (80.0-97.0); Mean Platelet Volume 10.3 fL (9.5-12.2); Monocytes # (A) 0.88 X 10*3/uL (0.20-1.00); Monocytes % (A) 12.7 %; Neutrophils % (A) 56.5 %; Platelet Count 221 X 10*3/uL (140-440); RBC 4.08 X 10*6/uL (4.10-5.20); RDW 13.6 % (11.5-14.5); WBC 6.91 X 10*3/uL (4.50-10.00)
[2020-12-28] MEDS ORDERED: METOPROLOL TARTRATE 25 MG TAB PO ONE (10:20)
[2020-12-28 10:30] LABS: African American GFR (CKD) 84.2 (60.0-200.0); Anion Gap 9.1 mmol/L (4.00-12.00); BUN/Creat Ratio 18.75 Ratio (12.00-20.00); Calcium 8.9 mg/dL (8.7-10.3); Carbon Dioxide 24.9 mmol/L (21.6-31.8); Non-African American GFR(CKD) 72.6 (60.0-200.0); Potassium 3.7 mmol/L (3.5-5.5)
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
[2020-12-28 11:07] VITALS: BMI 37.4
--- NOTE | 2020-12-28 12:20 | P.DS ---
Providers Date of admission: 12/27/20 13:00 Expected date of discharge: 12/28/20 Attending physician: Enrique Dobbins Consults: 12/27/20 13:01 Consult Physician Urgent Consulting Provider: [facility] Consult Reason/Comments: afib with rvr, recent cardioversion Do you want consulting provider notified?: Yes Primary care physician: Yanira Díaz MD Hospital Course: Discharge Diagnosis: Paroxysmal A fib with RVR Chest pain due to A fib Hypothyroidism HTN Obesity with BMI 37.4 Hospital Course: Patient is a 75 yo CF with a hx of A fib, HTN, TISH on CPAP, and hypothyroidism who was admitted for chest pain. EKG showed A fib with RVR. Her labs were unremarkable. She was placed in observation for further monitoring. Her troponin remained negative. She was seen by cardiology and her metoprolol was increased to 50 mg twice daily. She will follow-up with Dr. Urrutia in 1-2 weeks, and Dr. Díaz as previously scheduled next week. Patient seen and examined at bedside. Chest tightness is resolved, no shortness of breath, no nausea, no vomiting. Vital signs reviewed and stable. General: non toxic, no distress, appears at stated age Derm: warm, dry Head: atraumatic, normocephalic, symmetric Eyes: EOMI, no lid lag, anicteric sclera Mouth: no lip lesion, mucus membranes moist Cardiovascular: S1S2 reg, no murmur, positive posterior tibial pulse bilateral, Lungs: CTA bilateral, no rhonchi, no rales , no accessory muscle use Abdominal: soft, nontender to palpation, no guarding, no appreciable organomegaly Ext: no gross muscle atrophy, no edema, no contractures Neuro: CN II-XI grossly intact, no focal neuro deficits Psych: Alert, oriented, appropriate affect A total of 25 minutes of time were spent preparing this complex discharge summary . Patient Condition at Discharge: Stable Plan - Discharge Summary Discharge Rx Participant: No New Discharge Prescriptions: New RX: Metoprolol Tartrate [Lopressor] 50 mg PO BID #180 tab Continue RX: Multivit-Min/FA/Lycopen/Lutein [Centrum Silver Tablet] 1 tab PO DAILY RX: Magnesium Chloride [Slow-Mag] 64 mg PO DAILY RX: Cyanocobalamin [Vitamin B-12] 1,250 mcg PO DAILY RX: Calcium Carbonate/Vitamin D3 [Calcium 600-Vit D3 5 Mcg (200 Iu)] 1 tab PO DAILY RX: [place]-3 Fatty Acids/Fish Oil [Fish Oil 1,000 mg Softgel] 1 cap PO DAILY RX: Biotin 5 mg PO DAILY RX: Levothyroxine Sodium [Levoxyl] 150 mcg PO SUTUTH RX: Potassium Chloride ER [K-Dur 10] 10 meq PO DAILY RX: Atorvastatin [Lipitor] 20 mg PO HS RX: Cholecalciferol (Vitamin D3) [Vitamin D3 (4,000 Iu)] 100 mcg PO DAILY RX: Bifidobacterium Infantis [Align] 4 mg PO DAILY RX: Losartan Potassium 50 mg PO DAILY RX: Levothyroxine Sodium [Levoxyl] 225 mcg PO MOWEFR RX: Bumetanide [BUMEX] 0.25 mg PO DAILY PRN PRN Reason: Edema RX: Apixaban [Eliquis] 5 mg PO BID RX: Dorzolamide/Timolol/Pf [Dorzolamide 2%-Timolol 0.5%] 1 drop BOTH EYES HS RX: Propafenone [Rythmol] 225 mg PO TID #270 tab Discontinued RX: Metoprolol Tartrate [Lopressor] 25 mg PO BID Discharge Medication List RX: Atorvastatin [Lipitor] 20 mg PO HS 05/25/16 [History] RX: Biotin 5 mg PO DAILY 05/25/16 [History] RX: Calcium Carbonate/Vitamin D3 [Calcium 600-Vit D3 5 Mcg (200 Iu)] 1 tab PO DAILY 05/25/16 [History] RX: Cyanocobalamin [Vitamin B-12] 1,250 mcg PO DAILY 05/25/16 [History] RX: Levothyroxine Sodium [Levoxyl] 150 mcg PO SUTUTHSA 05/25/16 [History] RX: Magnesium Chloride [Slow-Mag] 64 mg PO DAILY 05/25/16 [History] RX: Multivit-Min/FA/Lycopen/Lutein [Centrum Silver Tablet] 1 tab PO DAILY 05/25/16 [History] RX: [place]-3 Fatty Acids/Fish Oil [Fish Oil 1,000 mg Softgel] 1 cap PO DAILY 05/25/16 [History] RX: Potassium Chloride ER [K-Dur 10] 10 meq PO DAILY 05/25/16 [History] RX: Apixaban [Eliquis] 5 mg PO BID 11/25/20 [History] RX: Bifidobacterium Infantis [Align] 4 mg PO DAILY 11/25/20 [History] RX: Bumetanide [BUMEX] 0.25 mg PO DAILY PRN 11/25/20 [History] RX: Cholecalciferol (Vitamin D3) [Vitamin D3 (4,000 Iu)] 100 mcg PO DAILY 11/25/20 [History] RX: Dorzolamide/Timolol/Pf [Dorzolamide 2%-Timolol 0.5%] 1 drop BOTH EYES HS 11/25/20 [History] RX: Levothyroxine Sodium [Levoxyl] 225 mcg PO MOWEFR 11/25/20 [History] RX: Losartan Potassium 50 mg PO DAILY 11/25/20 [History] RX: Propafenone [Rythmol] 225 mg PO TID #270 tab 11/30/20 [Rx] RX: Metoprolol Tartrate [Lopressor] 50 mg PO BID #180 tab 12/28/20 [Rx] Follow up Appointment(s)/Referral(s): Yanira Díaz MD [Primary Care Provider] - 1 Week (as scheduled) Yanira Urrutia MD [STAFF PHYSICIAN] - 01/11/21 11:00 am (appointment made with Nyla at the main office ) Patient Instructions/Handouts: A-fib (Atrial Fibrillation) (DC) Activity/Diet/Wound Care/Special Instructions: activity as tolerated heart healthy diet Discharge Disposition: HOME SELF-CARE
[2020-12-28] MEDS ORDERED: METOPROLOL TARTRATE 50 MG TAB PO SCH (21:00)
== END 2020-12-28 11:41 | disposition home or self-care (01) ==
LOC: EC 10:23 → 6NMEDSUR 13:00
PROVIDERS: ADMIT Internal Medicine; ATTEND Internal Medicine
DX: I48.0 Paroxysmal atrial fibrillation (principal); E03.9 Hypothyroidism, unspecified; I10 Essential (primary) hypertension; E66.9 Obesity, unspecified; Z68.37 Body mass index [BMI] 37.0-37.9, adult; R06.09 Other forms of dyspnea; K90.0 Celiac disease; L40.9 Psoriasis, unspecified; L43.9 Lichen planus, unspecified; E78.5 Hyperlipidemia, unspecified; G47.33 Obstructive sleep apnea (adult) (pediatric); I25.10 Atherosclerotic heart disease of native coronary artery without angina pectoris; R60.9 Edema, unspecified; Z79.899 Other long term (current) drug therapy; Z79.890 Hormone replacement therapy; Z79.01 Long term (current) use of anticoagulants; Z88.2 Allergy status to sulfonamides; Z88.1 Allergy status to other antibiotic agents; Z91.013 Allergy to seafood; Z99.89 Dependence on other enabling machines and devices; Z90.49 Acquired absence of other specified parts of digestive tract; Z90.710 Acquired absence of both cervix and uterus; Z87.19 Personal history of other diseases of the digestive system; Z87.891 Personal history of nicotine dependence; Z80.41 Family history of malignant neoplasm of ovary; Z80.3 Family history of malignant neoplasm of breast; Z82.49 Family history of ischemic heart disease and other diseases of the circulatory system; Z20.822 Contact with and (suspected) exposure to COVID-19
CPT/HCPCS: 99285; 36415; 93005; 83880; 80053; 80048; 84443; 83735; 84484; 85025 ×2; 85610; 85730; 87635; 71046; G0378 ×2

== ENCOUNTER 2021-02-17 10:12 | Day surgery (SDC) | payer MEDICARE ==
[~2021-02-17 10:12] MED LIST: DEXAMETHASONE SOD PHOSPHATE 4 MG/ML 1 ML VIAL IV ONE; LIDOCAINE 1% (10MG/ML) FOR IV START INTRADERMA PRN; ONDANSETRON 4 MG/2 ML VIAL IVP ONE; SODIUM CHLORIDE 0.9% 1,000 ML IV SCH
[2021-02-17] MEDS ORDERED: SODIUM CHLORIDE 0.9% 1,000 ML IV ONE (10:46)
[2021-02-17] MEDS ORDERED: PROPOFOL 10 MG/ML 20 ML VIAL IV ONE (14:55)
[2021-02-17] MEDS ORDERED: LIDOCAINE 1% INJ 10MG/ML (20 ML MDV) ONE ×2 (14:55→15:34)
[2021-02-17] MEDS ORDERED: DEXAMETHASONE SOD PHOSPHATE 4 MG/ML 1 ML VIAL ONE (14:55)
[2021-02-17] MEDS ORDERED: GLYCOPYRROLATE 0.2 MG/ML 2 ML VIAL ONE (14:55)
[2021-02-17] MEDS ORDERED: NEOSTIGMINE 1 MG/ML 10 ML VIAL ONE (14:55)
[2021-02-17] MEDS ORDERED: SUCCINYLCHOLINE CHLORIDE 100 MG/5 ML SYR IV ONE (14:55)
[2021-02-17] MEDS ORDERED: ONDANSETRON 4 MG/2 ML VIAL ONE (14:55)
[2021-02-17] MEDS ORDERED: PHENYLEPHRINE-0.9% NACL SYG 1,000 MCG/10 ML SYRINGE ONE (14:55)
[2021-02-17] MEDS ORDERED: FUROSEMIDE 10 MG/ML 2 ML VIAL ONE (14:55)
[2021-02-17] MEDS ORDERED: PROTAMINE SULFATE 10 MG/ML 5 ML VIAL IV ONE ×2 (14:55→18:17)
[2021-02-17] MEDS ORDERED: HEPARIN SODIUM,PORCINE 10,000 UNIT/ML 1 ML VIAL ONE (14:55)
[2021-02-17] MEDS ORDERED: fentaNYL (PF) 50 MCG/ML 2 ML AMP ONE (14:55)
[2021-02-17] MEDS ORDERED: HEPARIN SODIUM (1,000 UNIT/ML) 1,000 UNIT in SODIUM CHLORIDE 0.9% 1,000 ML IRRIGATION ONE (15:04)
[2021-02-17] MEDS ORDERED: HEPARIN SOD,PORK IN 0.45% NACL 25,000 UNIT in 0.45% NACL 1 250ML.BAG IV ONE (15:04)
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
[2021-02-17] MEDS ORDERED: LIDOCAINE 1% INJ 10MG/ML (20 ML MDV) SQ ONE (15:44)
[2021-02-17] MEDS ORDERED: IOPAMIDOL-370 100ML BTL INJ ONE (18:41)
--- NOTE | 2021-02-17 18:58 | P.EPPROC ---
- EP Procedure Note Electrophysiology Procedure Note: PROCEDURE A. fib ablation Pulmonary vein isolation Linear ablation the septum Linear ablation left atrial roof DIAGNOSIS Atrial fibrillation, symptomatic, refractory to therapy Symptoms despite adequate rate control Failed propafenone RESULT No left atrial appendage mass seen on intracardiac echo, large left atrial appendage Successful A. fib ablation/pulmonary vein isolation of all veins using cryo- ablation Complete entrance block in all 4 veins confirmed PVI resulted in relative organization of the atrial fibrillation Subsequently linear ablation in the roof of the left atrium Linear ablation in the posterior septum of the LA Remained in relatively organized atrial fibrillation Electrical cardioversion with a synchronized shock across the chest YES PROCEDURE DETAILS Patient was brought to the EP lab in a fasting state. Written informed consent was obtained prior to the procedure. Procedure performed under general anesthesia After initial muscle relaxant use, muscle relaxants were not given thereafter in order to assess phrenic nerve during procedure. Patient prepped and draped as per protocol Full cryo-set up with standard preparation of the cryoablation tools done. Femoral Venous access obtained on the right and left groins Venous and arterial Sheaths placed. Diagnostic catheters for the high right atrium, phrenic nerve stimulation and pacing, His bundle, RV and coronary sinus placed Intracardiac echo catheter placed. Long sheath placed in the right atrium Left and right transseptal catheterization performed under intracardiac echo guidance. Intravenous heparin with aCT above 300 Later, catheter positioning and balloon positioning in the left atrium, under intracardiac echo guidance Diagnostic EP study with Coronary sinus pacing and recording Baseline measurements Sinus cycle length 917 ms, QRS 180 ms, DE interval 138 ms and QT interval 340 ms Atrial pacing performed from the high right atrium and the coronary sinus Transseptal catheterization performed RA pressure 21/16/19 LA pressure 35/10/23 Transseptal catheterization performed with standard sheath. The cryoablation sheath was then placed with an over the wire exchange without any acute complications. All 4 pulmonary veins were isolated in the following sequence: Left superior followed by left inferior followed by right superior followed by right inferior The cryo-ablation balloon was placed at the os of each vein 1.5 mL of IV dye was injected to confirm an occluded vein Goal during cryoablation was to achieve complete occlusion of the pulmonary vein, achieve -30 degrees C at 30 seconds and achieve -40 degrees C at 60 seconds and a time to effect of less than 60-90 seconds, . If not the balloon was repositioned to obtain this result After completion of Cryoblation with durations from 180-240 seconds, entrance block was confirmed with the Attain circular catheter in a roving fashion around the antrum of the pulmonary veins Phrenic nerve pacing was performed from the SVC, right innominate vein area and diaphragm voltage was monitored. Diaphragmatic contractions were also monitored manually for strength of contraction. Parameter goals for each cryo freeze Complete occlusion of the appropriate vein -30 degrees C by 30 seconds -40 degrees C by 60 seconds Minimum between minus 40-55 degrees C Thaw time greater than 10 seconds Balloon visualized by intracardiac echo The esophagus was intubated. Esophageal Temperature monitoring with a CIRCA catheter formed. Esophageal deflection for hypothermia of the esophagus below 30 degrees C Left superior pulmonary vein, very large common left-sided vein Complete isolation, entrance block Left inferior pulmonary vein, very large common left-sided vein Complete isolation, entrance block Right superior pulmonary vein, during phrenic nerve pacing Complete isolation, entrance block Right inferior pulmonary vein, during phrenic nerve pacing Complete isolation, entrance block At the end of the procedure the Achieve catheter was once again used to check for entrance block Phrenic nerve stimulation was performed to confirm diaphragmatic stimulation the end of the procedure Cine fluoroscopy was performed at the very end of the procedure to confirm movement of both diaphragms with inspiration and expiration RF ablation catheter placed in the left atrium 3-D electro anatomic mapping performed Voltage mapping performed Pulmonary veins completely isolated RF ablation along fractionated electrograms in the posterior septum The septum was rendered electrically inert The roof was about 2.5-2.7 cm in length Linear ablation in the roof Complete line of block made Lines interrogated with voltage mapping and high output pacing to document non- capture At the end of the procedure the patient was extubated Heparin was reversed Venous sheaths were removed and hemostasis assured PROCEDURES PERFORMED Diagnostic EP study CS pacing and recording Left and right transseptal catheterization 3D mapping Intracardiac echocardiography Pulmonary vein isolation with transseptal and comprehensive EPS, [id number] Left atrial roof line, [id number] Linear ablation, posterior septum of left atrium, [id number] Electrical cardioversion with a synchronized shock across the chest [id number]
[2021-02-17] MEDS ORDERED: HYDROmorphone 0.5 MG/0.5 ML SYRINGE IVP ONE (19:20)
[2021-02-17] MEDS ORDERED: ATORVASTATIN 20 MG TAB PO SCH (21:00)
[2021-02-17] MEDS: FLECAINIDE 50 MG TAB PO SCH (21:57)
[2021-02-17] MEDS: METOPROLOL TARTRATE 25 MG TAB PO SCH (21:57)
[2021-02-17] MEDS: APIXABAN 5 MG TAB PO SCH (21:57)
[2021-02-18] MEDS: LACTATED RINGERS 1,000 ML IV SCH ×2 (06:15→09:26)
[2021-02-18] MEDS ORDERED: LEVOTHYROXINE 75 MCG TAB PO SCH (06:30)
--- NOTE | 2021-02-18 08:03 | P.DS ---
Providers Attending physician: Nathan Monreal Primary care physician: Yanira Díaz MD Hospital Course: Patient is doing well. No chest discomfort but she has a sore throat no dizziness or lightheadedness Her blood pressures in the normal range 122/79 mmHg, 107/63 mmHg sinus mechanism in the 70s with PACs Examination reveals normal breath sounds Heart sounds are regular and normal no murmurs no gallop or rub No lower extremity edema Groins of healed well Impression Persistent atrial fibrillation Status post A. fib ablation with linear ablation in the septum, left atrial roof and pulmonary vein isolation She required electrical cardioversion thereafter Dilated left atrium Elevated left atrial pressures were 23 mmHg, mean Plan Flecainide 100 mg twice daily Reduce metoprolol to 25 mg twice daily Continue ELIQUIS Continue all other cardiac medications Weight reduction Sleep apnea management Minimize alcohol consumption Discussed the patient Discharge home later today with the groins have healed well Plan - Discharge Summary Discharge Rx Participant: No New Discharge Prescriptions: New Metoprolol Tartrate 25 mg PO BID #90 tab Discontinued Metoprolol Tartrate [Lopressor] 50 mg PO BID #180 tab No Action Multivit-Min/FA/Lycopen/Lutein [Centrum Silver Tablet] 1 tab PO DAILY Cyanocobalamin [Vitamin B-12] 1,250 mcg PO DAILY Calcium Carbonate/Vitamin D3 [Calcium 600-Vit D3 5 Mcg (200 Iu)] 1 tab PO DAILY Levothyroxine Sodium [Levoxyl] 150 mcg PO SUTUWEFRSA Potassium Chloride ER [K-Dur 10] 10 meq PO HS Atorvastatin [Lipitor] 20 mg PO HS Cholecalciferol (Vitamin D3) [Vitamin D3 (4,000 Iu)] 100 mcg PO DAILY Losartan Potassium 50 mg PO QAM Levothyroxine Sodium [Levoxyl] 225 mcg PO MOTH Bumetanide [BUMEX] 0.25 mg PO DAILY PRN PRN Reason: Edema Apixaban [Eliquis] 5 mg PO BID Dorzolamide/Timolol/Pf [Dorzolamide 2%-Timolol 0.5%] 1 drop BOTH EYES HS Clobetasol Propionate [Temovate 0.05% Cream] 1 applic TOPICAL DIRECTED PRN PRN Reason: PSORIASIS Discharge Medication List Atorvastatin [Lipitor] 20 mg PO HS 05/25/16 [History] Calcium Carbonate/Vitamin D3 [Calcium 600-Vit D3 5 Mcg (200 Iu)] 1 tab PO DAILY 05/25/16 [History] Cyanocobalamin [Vitamin B-12] 1,250 mcg PO DAILY 05/25/16 [History] Levothyroxine Sodium [Levoxyl] 150 mcg PO SUTUWEFRSA 05/25/16 [History] Multivit-Min/FA/Lycopen/Lutein [Centrum Silver Tablet] 1 tab PO DAILY 05/25/16 [History] Potassium Chloride ER [K-Dur 10] 10 meq PO HS 05/25/16 [History] Apixaban [Eliquis] 5 mg PO BID 11/25/20 [History] Bumetanide [BUMEX] 0.25 mg PO DAILY PRN 11/25/20 [History] Cholecalciferol (Vitamin D3) [Vitamin D3 (4,000 Iu)] 100 mcg PO DAILY 11/25/20 [History] Dorzolamide/Timolol/Pf [Dorzolamide 2%-Timolol 0.5%] 1 drop BOTH EYES HS 11/25/20 [History] Levothyroxine Sodium [Levoxyl] 225 mcg PO MOTH 11/25/20 [History] Losartan Potassium 50 mg PO QAM 11/25/20 [History] Clobetasol Propionate [Temovate 0.05% Cream] 1 applic TOPICAL DIRECTED PRN 02/15/21 [History] Metoprolol Tartrate 25 mg PO BID #90 tab 02/17/21 [Rx] Follow up Appointment(s)/Referral(s): Yanira Urrutia MD [STAFF PHYSICIAN] - 1 Week
[2021-02-18 08:23] VITALS: BP 143/85; PULSE 80; RESP 19; TEMP 98.5
[2021-02-18] MEDS ORDERED: LOSARTAN 50 MG TAB PO SCH (09:00)
[2021-02-18] MEDS: METOPROLOL TARTRATE 25 MG TAB PO SCH (09:20)
[2021-02-18] MEDS: APIXABAN 5 MG TAB PO SCH (09:21)
[2021-02-18] MEDS: FLECAINIDE 50 MG TAB PO SCH (09:21)
== END 2021-02-18 14:35 | disposition home or self-care (01) ==
LOC: CATHEP 10:12 → 6NMEDSUR 18:22 → CATHEP 02-18 14:35
PROVIDERS: ATTEND Internal Medicine Clinical Cardiac Electrophysiology
DX: I48.19 Other persistent atrial fibrillation (principal); Z79.01 Long term (current) use of anticoagulants; I10 Essential (primary) hypertension; G47.30 Sleep apnea, unspecified; E07.9 Disorder of thyroid, unspecified; L40.9 Psoriasis, unspecified; Z20.822 Contact with and (suspected) exposure to COVID-19; K90.0 Celiac disease; Z86.19 Personal history of other infectious and parasitic diseases; Z90.49 Acquired absence of other specified parts of digestive tract; Z90.710 Acquired absence of both cervix and uterus; Z90.89 Acquired absence of other organs; Z98.42 Cataract extraction status, left eye; Z98.41 Cataract extraction status, right eye; Z98.890 Other specified postprocedural states; Z87.891 Personal history of nicotine dependence; Z80.41 Family history of malignant neoplasm of ovary; Z80.3 Family history of malignant neoplasm of breast; Z82.49 Family history of ischemic heart disease and other diseases of the circulatory system; Z79.890 Hormone replacement therapy; Z79.899 Other long term (current) drug therapy; Z88.1 Allergy status to other antibiotic agents; Z88.2 Allergy status to sulfonamides; Z91.013 Allergy to seafood
CPT/HCPCS: 92960; 93662; 93613; 93656; 93657; 87635; C1759; C1769 ×4; C1894 ×2; C1730 ×2; C1893; C1733; C1766; C1732; J2720; J1644 ×3; J1100; J1940; J2710; J2405; J2001; J3010; J2370; J0330; J2704; J1170; Q9967

== ENCOUNTER 2021-02-19 18:38 | Observation (INO) | payer MEDICARE ==
[2021-02-19] MEDS ORDERED: SODIUM CHLORIDE 0.9% 500 ML 500 ML IV ONE (18:57)
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
[2021-02-19 19:10] LABS: Basophils % (A) 0 %; Eosinophils # (A) 0.1 k/uL (0-0.7); Eosinophils % (A) 1 %; HCT 39.2 % (34.0-46.0); HGB 13.6 gm/dL (11.4-16.0); Lymphocytes # (A) 1.4 k/uL (1.0-4.8); Lymphocytes % (A) 12 %; MCH 30.9 pg (25.0-35.0); MCHC 34.8 g/dL (31.0-37.0); MCV 88.9 fL (80.0-100.0); Mean Platelet Volume 7.1; Monocytes # (A) 0.9 k/uL (0-1.0); Monocytes % (A) 8 %; Neutrophils # (A) 8.9 k/uL (1.3-7.7); Neutrophils % (A) 78 %; Platelet Count 184 k/uL (150-450); RBC 4.41 m/uL (3.80-5.40); RDW 13.4 % (11.5-15.5); WBC 11.5 k/uL (3.8-10.6)
--- NOTE | 2021-02-19 19:20 | XR ---
EXAMINATION TYPE: XR chest 1V portable DATE OF EXAM: 02/19/2021 COMPARISON: 12/27/2020 HISTORY: Atrial fibrillation TECHNIQUE: Single view FINDINGS: There is blunting of the costophrenic angles. There is mild pulmonary vascular congestion. There is some bulkiness of the right pulmonary hilum. There are chest leads. IMPRESSION: Increased pleural fluid and pulmonary congestion compared to old exam. This is consistent with some mild chronic heart failure. Mass at the right pulmonary hilum is possible.
[2021-02-19 19:23] LABS: Albumin 4.1 g/dL (3.5-5.0); Calcium 9.3 mg/dL (8.4-10.2); Magnesium 1.8 mg/dL (1.6-2.3); Potassium 3.7 mmol/L (3.5-5.1); Total Bilirubin 0.9 mg/dL (0.2-1.3); Total Protein 6.9 g/dL (6.3-8.2)
[2021-02-19 19:42] LABS: INR 1.1 (<1.2); Partial Thromboplastin Time 25.5 sec (22.0-30.0); Prothrombin Time 11.1 sec (9.0-12.0)
--- NOTE | 2021-02-19 20:12 | CT ---
EXAMINATION TYPE: CT angio chest DATE OF EXAM: 02/19/2021 COMPARISON: None HISTORY: Chest pain, difficulty breathing and fever post cardiac ablation [address] DLP: 392.7 mGycm Automated exposure control for dose reduction was used. CONTRAST: Performed with IV Contrast, patient injected with 100 mL of Isovue 370. Images obtained from the thoracic inlet to the diaphragm with IV contrast. There are 3-D post process ed images. Heart is slightly enlarged. There is no pericardial effusion. There are bilateral pleural effusions. There is no mediastinal adenopathy. Thoracic aorta is atheromatous. There is no aneurysm or dissectio n. Ascending aorta measures 3.6 cm. There are large pulmonary arteries. I see no filling defect. There are no hilar masses. The thoracic spine is intact. There is no significant compression deformity. There is a large cyst in the upper abdomen that is apparent large right renal cyst that measures at least 12 cm and is partly visualized. The lungs are clear of consolidation. There is some atelectasis at the posterior lung bases. IMPRESSION: No evidence of pulmonary embolism. Bilateral pleural effusions with basilar atelectasis. Large pulmonary arteries consistent with pulmon zechariah hypertension. No suspicious pulmonary mass.
[2021-02-19] MEDS ORDERED: HEPARIN SODIUM 1,000 UN/ML (10ML VL) IV ONE (20:15)
[2021-02-19] MEDS ORDERED: METOPROLOL TARTRATE 5 MG/5 ML VIAL IVP STA (20:15)
[2021-02-19] MEDS ORDERED: HEPARIN SOD,PORK IN 0.45% NACL 25,000 UNIT in 0.45% NACL 1 250ML.BAG IV SCH (20:15)
[2021-02-19] MEDS ORDERED: HEPARIN SODIUM 1,000 UN/ML (10ML VL) IV PRN (20:15)
[2021-02-19] MEDS ORDERED: NALOXONE 0.4 MG/ML 1 ML VIAL IV PRN (20:40)
[2021-02-19] MEDS: COLCHICINE 0.6 MG EACH PO SCH (21:47)
[2021-02-19] MEDS: APIXABAN 5 MG TAB PO SCH (21:47)
[2021-02-19] MEDS ORDERED: BUMETANIDE 0.5 MG TABLET PO PRN (23:55)
[2021-02-19] MEDS ORDERED: ACETAMINOPHEN TAB 325 MG TAB PO PRN (23:56)
[2021-02-20] MEDS: LEVOTHYROXINE 75 MCG TAB PO SCH ×2 (00:07→05:48)
[2021-02-20] MEDS ORDERED: NITROGLYCERIN SL TABS 0.4 MG TAB SUBLINGUAL ONE (00:16)
[2021-02-20] MEDS ORDERED: NITROGLYCERIN SL TABS 0.4 MG TAB SUBLINGUAL STA (00:17)
[2021-02-20] MEDS ORDERED: MORPHINE SULFATE 4 MG/ML SYRINGE IVP PRN (00:30)
[2021-02-20] MEDS ORDERED: MORPHINE SULFATE 4 MG/ML SYRINGE IVP STA (02:59)
[2021-02-20 03:39] LABS: Basophils % (A) 0 %; Eosinophils % (A) 0 %; HCT 38.9 % (34.0-46.0); HGB 12.8 gm/dL (11.4-16.0); Lymphocytes # (A) 1.3 k/uL (1.0-4.8); Lymphocytes % (A) 12 %; MCH 29.8 pg (25.0-35.0); MCV 90.3 fL (80.0-100.0); Mean Platelet Volume 6.9; Monocytes % (A) 9 %; Neutrophils # (A) 8.3 k/uL (1.3-7.7); Neutrophils % (A) 76 %; Platelet Count 180 k/uL (150-450); RDW 13.3 % (11.5-15.5); WBC 10.9 k/uL (3.8-10.6)
[2021-02-20 03:50] LABS: INR 1.1 (<1.2); Partial Thromboplastin Time 23.5 sec (22.0-30.0); Prothrombin Time 11.3 sec (9.0-12.0)
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
[2021-02-20] MEDS ORDERED: FUROSEMIDE 10 MG/ML 2 ML VIAL IV ONE (08:00)
[2021-02-20] MEDS: METOPROLOL TARTRATE 50 MG TAB PO SCH ×2 (08:29→20:55)
[2021-02-20] MEDS: COLCHICINE 0.6 MG EACH PO SCH ×2 (08:30→20:55)
[2021-02-20] MEDS: FLECAINIDE 50 MG TAB PO SCH ×2 (08:30→20:56)
[2021-02-20] MEDS: APIXABAN 5 MG TAB PO SCH ×2 (08:30→20:55)
[2021-02-20] MEDS: LOSARTAN 50 MG TAB PO SCH (08:31)
[2021-02-20] MEDS ORDERED: METOPROLOL TARTRATE 25 MG TAB PO SCH (09:00)
[2021-02-20] MEDS ORDERED: POTASSIUM CHLORIDE ER 20 MEQ TAB.ER PO ONE (09:00)
--- NOTE | 2021-02-20 12:47 | P.PN ---
Subjective Progress Note Date: 02/20/21 Patient is doing fairly well today. She denies any chest pain. She told me that her pain is worse with deep breath. No acute events overnight. Objective - Vital Signs Vital signs: Vital Signs Temp 97.9 F 02/20/21 08:24 Pulse 90 02/20/21 11:40 Resp 18 02/20/21 11:40 BP 112/76 02/20/21 11:40 Pulse Ox 93 L 02/20/21 11:40 Intake & Output 02/19/21 02/20/21 02/20/21 18:59 06:59 18:59 Intake Total 480 Output Total 400 Balance 80 Weight 106.594 kg 108.4 kg Intake: Oral 480 Output: Urine 400 Other: Voiding Method Toilet Toilet # Voids 1 - Exam General: The patient is awake and alert, in no distress Eye: there is normal conjunctiva bilaterally. Neck: The neck is supple, there is no JVD. Cardiovascular: Normal S1-S2, no S3-S4, no murmurs. Respiratory: Lungs clear to auscultation bilaterally Gastrointestinal: Abdomen is soft, nontender Musculoskeletal: There is no pedal edema. Neurological:. Speech is normal. Skin: Skin is warm and dry - Labs CBC & Chem 7: 02/20/21 03:12 02/19/21 19:02 Labs: Abnormal Lab Results - Last 24 Hours (Table) 02/19/21 02/19/21 02/19/21 Range/Units 19:02 19:02 19:02 WBC 11.5 H (3.8-10.6) k/uL Neutrophils # 8.9 H (1.3-7.7) k/uL Sodium 136 L (137-145) mmol/L BUN 28 H (7-17) mg/dL Glucose 121 H (74-99) mg/dL AST 44 H (14-36) U/L Troponin I 2.130 H* (0.000-0.034) ng/mL 02/20/21 02/20/21 Range/Units 03:12 03:12 WBC 10.9 H (3.8-10.6) k/uL Neutrophils # 8.3 H (1.3-7.7) k/uL Sodium (137-145) mmol/L BUN (7-17) mg/dL Glucose (74-99) mg/dL AST (14-36) U/L Troponin I 1.500 H* (0.000-0.034) ng/mL Assessment and Plan Assessment: This is a 75-year-old female with past medical history noted below that presented to the emergency room with chest pain. Patient had an outpatient 2 days prior to her presentation. She was evaluated in the ER and admitted to the hospital for further management of her medical problems noted below. 1. Chest pain, atypical in nature. May be attributed to pleurisy. Twelve-lead EKG showed no acute ischemic changes. Troponin was elevated secondary to recent ablation couple of days ago. CT angiogram negative for PE. Patient was seen and evaluated by cardiology. Repeat echocardiogram ordered. Patient had left heart catheterization on 11/29/20 showing normal coronary artery 2. Chronic atrial fibrillation on anticoagulation with Eliquis status post ablation couple of days ago Today, I reviewed her medication list and lab work results. Continue current regimen. Appreciate cardiology recommendations.
--- NOTE | 2021-02-20 14:57 | CONS ---
CONSULTATION This is a 75-year-old lady who has history of persistent symptomatic atrial fibrillation and on February 17, , she underwent a pulmonary vein isolation procedure that was performed by Dr. Monreal. She had a pulmonary vein isolation procedure performed. Prior to that in November of 2020, she had a cardiac cath which did not reveal any significant obstructive coronary disease. She underwent a cryoablation procedure and was sent home uneventfully. Prior to completion of the procedure, she had electrical cardioversion and was converted to sinus rhythm. However, she came into the emergency room with complaints of having pleuritic-type chest discomfort, worse when she took a deep breath and also felt palpitations and she went back into atrial fibrillation. She has been placed on flecainide 100 mg b.i.d. and metoprolol was reduced when she went home. At the time of my evaluation, her quality of pain is sharp, sometimes gets worse with deep breath but not consistently. She had a troponin that went up to 2.1 yesterday and this could be also related to her recent ablation as well. However, the repeat troponin is down to 1.5. She is resting comfortably without any significant symptoms. She has history of persistent atrial fibrillation, hypothyroidism, hyperlipidemia, and hypertension. PAST MEDICAL HISTORY: 1. Hypertension. 2. Hyperlipidemia. 3. Persistent atrial fibrillation on Eliquis 5 mg b.i.d. 4. Status post recent pulmonary vein isolation on from February 17, 2021. 5. Unremarkable cardiac cath in November of this year. MEDICATIONS: Medications at home include: Flecainide 100 mg b.i.d., metoprolol tartrate was reduced to 25 mg b.i.d., losartan 50 mg daily, she takes levothyroxine, apixaban 5 mg b.i.d., Lipitor 20 mg daily, Bumex 0.5 mg daily p.r.n. This patient had a CT angiogram which did not reveal any pericardial effusion. There was no evidence of any pulmonary embolism. She also had a chest x-ray which suggests some pleural effusion and mild pulmonary vascular congestion. She had right hilar abnormality as well. PHYSICAL EXAMINATION: On examination, blood pressure is 130/70, pulse rate is 100 per minute, appears to be atrial fib with intermittent sinus beats. HEENT: Unremarkable. Fundus was not examined by me. NECK is supple. There is no JVD. I do not hear a carotid bruit. HEART exam reveals S1, S2. There is a short systolic murmur at the left sternal border. There is no pericardial rub. LUNGS are clear. ABDOMEN is soft, nontender. Lower EXTREMITIES reveal diminished pulses. Central nervous system grossly within normal limits. The EKG revealed atrial fibrillation with underlying right bundle type picture with baseline artifact, nonspecific ST changes. Rhythm strip review suggests occasional sinus activity. IMPRESSION: 1. Pleuritic pain status post recent cryoablation. Rule out any pericardial inflammation. 2. Hypertension. 3. Hyperlipidemia. 4. History of unremarkable cardiac cath in November. RECOMMENDATIONS: I am recommending that we will continue flecainide but increase metoprolol to 50 mg b.i.d., add colchicine 0.6 mg b.i.d., give her one dose of Lasix 20 mg IV push and resume the Bumex. I will obtain echocardiogram and she will be seen by Dr. Monreal tomorrow. Thank you very much for the consult. MMODL / IJN: [id number] /
[2021-02-20] MEDS ORDERED: ATORVASTATIN 20 MG TAB PO SCH (21:00)
[2021-02-21] MEDS ORDERED: LEVOTHYROXINE 75 MCG TAB PO SCH (06:30)
[2021-02-21 08:23] LABS: Magnesium 1.7 mg/dL (1.6-2.3); Potassium 3.4 mmol/L (3.5-5.1)
[2021-02-21] MEDS: COLCHICINE 0.6 MG EACH PO SCH (09:02)
[2021-02-21] MEDS: LOSARTAN 50 MG TAB PO SCH (09:02)
[2021-02-21] MEDS: FLECAINIDE 50 MG TAB PO SCH (09:02)
[2021-02-21] MEDS: APIXABAN 5 MG TAB PO SCH (09:02)
[2021-02-21] MEDS: METOPROLOL TARTRATE 50 MG TAB PO SCH (09:02)
[2021-02-21 09:14] VITALS: BP 119/62; PULSE 91; RESP 18; TEMP 97.9
--- NOTE | 2021-02-21 10:01 | ECHOF ---
Referral Reason:Chest Pain MEASUREMENTS -------- HEIGHT: 165.1 cm WEIGHT: 108.0 kg BP: 136/80 RVIDd: 2.9 cm (< 3.3) IVSd: 1.0 cm (0.6 - 1.1) LVIDd: 2.3 cm (3.9 - 5.3) LVPWd: 1.1 cm (0.6 - 1.1) IVSs: 1.2 cm LVIDs: 1.5 cm LVPWs: 1.1 cm LAESV Index (A-L): 31.66 ml/m Ao Diam: 3.9 cm (2.0 - 3.7) AV Cusp: 2.4 cm (1.5 - 2.6) LA Diam: 3.3 cm (2.7 - 3.8) MV EXCURSION: 19.132 mm (> 18.000) MV EF SLOPE: 185 mm/s (70 - 150) EPSS: 1.6 cm AR PHT: 624 ms RAP: 5.00 mmHg RVSP: 30.57 mmHg FINDINGS -------- Atrial fibrillation. The left ventricular size is normal. Left ventricular wall thickness is normal. Overall left vent ricular systolic function is normal with, an EF between 55 - 60 %. Left ventricular fillimg pressur e cannot be estimated due to Atrial fibrillation. The right ventricle is normal in size. LA is midly dilated 29-33ml/m2. The right atrial size is normal. The aortic valve is trileaflet and appears structurally normal. Trace amount of aortic regurgitatio n. The mitral valve is normal. There is trace mitral regurgitation. The tricuspid valve appears structurally normal. Mild tricuspid regurgitation present. Right vent ricular systolic pressure is normal at < 35 mmHg. There is no pulmonic regurgitation present. The aortic root is dilated measuring 3.9 cm Normal inferior vena cava with normal inspiratory collapse consistent with estimated right atrial pre ssure of 5 mmHg. There is no pericardial effusion. CONCLUSIONS -------- 1. The left ventricular size is normal. 2. Left ventricular wall thickness is normal. 3. Overall left ventricular systolic function is normal with, an EF between 55 - 60 %. 4. Left ventricular fillimg pressure cannot be estimated due to Atrial fibrillation. 5. LA is midly dilated 29-33ml/m2. 6. Trace amount of aortic regurgitation. 7. There is trace mitral regurgitation. 8. Mild tricuspid regurgitation present. 9. The aortic root is dilated measuring 3.9 cm. 10. There is no pericardial effusion. RETORT FURNACE HELPER: Stephanie Orta RDCS
[2021-02-21] MEDS ORDERED: POTASSIUM CHLORIDE ER 20 MEQ TAB.ER PO STA (12:14)
--- NOTE | 2021-02-21 13:06 | P.PN ---
Subjective This is a pleasant 75-year-old female past medical history significant for persistent atrial fibrillation on eliquis, hypertension, sleep apnea, dyslipidemia and former nicotine dependence. She follows in the office Dr. Urrutia. We have been asked to see in consultation for A fib with RVR. Patient underwent successful atrial fibrillation ablation with Dr. Monreal on 02/17/2021. Patient presents to the emergency department with worsening exertional shortness of breath and chest pain. Chest pain across anterior chest, worsening with deep breathing. Also states she had a 100.4 fever at home and experienced some chills. CT chest negative for PE. Chest Xray- increased pleural fluid and pulmonary congestion. Troponin 2.1-->1.5. Patient underwent cardiac cath in 11/2020 which showed normal coronary arteries. 02/21/2021: Patient seen and examined at bedside, significant no apparent distress. She no longer has chest pain or shortness of breath. Patient has been in atrial fibrillation heart rate 85-100. Blood pressure 119/62, afebrile, 95% on room air. Currently being maintained on Eliquis 5 mg twice a day, atorvastatin 20 mg nightly, colchicine 0.6 mg twice a day, flecainide 100 mg twice a day, losartan 50 mg daily, metoprolol titrate 50 mg twice a day Echocardiogram left ventricle systolic function is normal with EF between 55- 60%, LA is mildly dilated, trace aortic regurgitation, trace mitral regurgitation, mild TR GENERAL: Well-appearing, well-nourished and in no acute distress. NECK: Supple without JVD or thyromegaly. LUNGS: Breath sounds clear to auscultation bilaterally. Respiration equal and unlabored. No wheezes, rales or rhonchi. HEART: Irregular rate and rhythm without murmurs, rubs or gallops. S1 and S2 heard. EXTREMITIES: Normal range of motion, trace bilateral edema. No clubbing or cyanosis. Peripheral pulses intact. ASSESSMENT Chest pain, not indicative of acute coronary syndrome. This is expected symptoms s/p ablation Persistent atrial fibrillation with RVR- symptomatic with tiredness fatigue despite adequate rate control and preserved LV systolic function. patient on eliquis. Status post A. fib ablation with linear ablation in the septum, left atrial roof and pulmonary vein isolation on 02/17/21. She required electrical cardioversion thereafter Elevated troponin- most likely due to ablation procedure on 02/17 and atrial fibrillation with RVR Hypertension, controlled Failed electrocardioversion and propafenone Hypertension Hyperlipidemia PLAN From cardiology perspective patient can be discharged and follow up with Dr. Urrutia within 2-3 weeks Change colchicine to 0.6mg Daily - will continue for 2 weeks. Change home Bumex to 0.25mg daily instead of PRN Increase metoprolol tartrate to 50mg BID, discontinue home metoprolol 25mg Continue Eliquis, statin, fecainide and losartan Nurse Practitioner note has been reviewed, I agree with a documented findings and plan of care. Patient was seen and examined. Objective - Vital Signs Vital signs: Vital Signs Temp 97.9 F 02/21/21 09:00 Pulse 91 02/21/21 09:00 Resp 18 02/21/21 09:00 BP 119/62 02/21/21 09:00 Pulse Ox 95 02/21/21 09:00 Intake & Output 02/20/21 02/21/21 02/21/21 18:59 06:59 18:59 Intake Total 960 Output Total 600 400 Balance 360 -400 Weight 107 kg Intake: Oral 960 Output: Urine 600 400 Other: Voiding Method Toilet Toilet - Labs CBC & Chem 7: 02/20/21 03:12 02/21/21 07:21 Labs: Abnormal Lab Results - Last 24 Hours (Table) 02/21/21 Range/Units 07:21 Potassium 3.4 L (3.5-5.1) mmol/L BUN 18 H (7-17) mg/dL Glucose 134 H (74-99) mg/dL
--- NOTE | 2021-02-21 15:19 | P.DS ---
Providers Date of admission: 02/19/21 20:40 Expected date of discharge: 02/21/21 Attending physician: Daphne Singh MD Consults: 02/20/21 11:04 Consult Physician Routine Consulting Provider: Pearl Anthony Consult Reason/Comments: elevated troponin, post cardiac ablation, afib Do you want consulting provider notified?: Already Contacted Primary care physician: Yanira Díaz MD Hospital Course: This is a 75-year-old female with past medical history noted below that presented to the emergency room with chest pain. Patient had an outpatient 2 days prior to her presentation. She was evaluated in the ER and admitted to the hospital for further management of her medical problems noted below. 1. Chest pain, atypical in nature. May be attributed to pleurisy. Twelve-lead EKG showed no acute ischemic changes. Troponin was elevated secondary to recent ablation couple of days ago. CT angiogram negative for PE. Patient was seen and evaluated by cardiology. Repeat echocardiogram showed preserved ejection fraction. Patient had left heart catheterization on 11/29/20 showing normal coronary artery. Patient was started on colchicine by cardiology. She was rochelle ared for discharge home. She will follow-up in the office as directed. 2. Chronic atrial fibrillation on anticoagulation with Eliquis status post ablation couple of days ago Patient will be discharged home in a stable condition. For further details about this hospitalization please refer to the electronic chart. Time spent on discharge > 30 minutes including counseling and coordination of care Patient Condition at Discharge: Stable Plan - Discharge Summary Discharge Rx Participant: Yes New Discharge Prescriptions: New Colchicine [Colcrys] 0.6 mg PO DAILY 14 Days #14 each Metoprolol Tartrate [Lopressor] 50 mg PO BID tab Continue Multivit-Min/FA/Lycopen/Lutein [Centrum Silver Tablet] 1 tab PO DAILY Cyanocobalamin [Vitamin B-12] 1,250 mcg PO DAILY Calcium Carbonate/Vitamin D3 [Calcium 600-Vit D3 5 Mcg (200 Iu)] 1 tab PO DAILY Levothyroxine Sodium [Levoxyl] 150 mcg PO SUTUWEFRSA Potassium Chloride ER [K-Dur 10] 10 meq PO HS Atorvastatin [Lipitor] 20 mg PO HS Cholecalciferol (Vitamin D3) [Vitamin D3 (4,000 Iu)] 100 mcg PO DAILY Losartan Potassium 50 mg PO QAM Levothyroxine Sodium [Levoxyl] 225 mcg PO MOTH Apixaban [Eliquis] 5 mg PO BID Dorzolamide/Timolol/Pf [Dorzolamide 2%-Timolol 0.5%] 1 drop BOTH EYES HS Flecainide [Tambocor] 100 mg PO Q12HR #180 tablet Clobetasol Propionate [Temovate 0.05% Cream] 1 applic TOPICAL DIRECTED PRN PRN Reason: PSORIASIS Changed Bumetanide [BUMEX] 0.25 mg PO DAILY #0 Discontinued Metoprolol Tartrate 25 mg PO BID #90 tab Discharge Medication List Atorvastatin [Lipitor] 20 mg PO HS 05/25/16 [History] Calcium Carbonate/Vitamin D3 [Calcium 600-Vit D3 5 Mcg (200 Iu)] 1 tab PO DAILY 05/25/16 [History] Cyanocobalamin [Vitamin B-12] 1,250 mcg PO DAILY 05/25/16 [History] Levothyroxine Sodium [Levoxyl] 150 mcg PO SUTUWEFRSA 05/25/16 [History] Multivit-Min/FA/Lycopen/Lutein [Centrum Silver Tablet] 1 tab PO DAILY 05/25/16 [History] Potassium Chloride ER [K-Dur 10] 10 meq PO HS 05/25/16 [History] Apixaban [Eliquis] 5 mg PO BID 11/25/20 [History] Cholecalciferol (Vitamin D3) [Vitamin D3 (4,000 Iu)] 100 mcg PO DAILY 11/25/20 [History] Dorzolamide/Timolol/Pf [Dorzolamide 2%-Timolol 0.5%] 1 drop BOTH EYES HS 11/25/20 [History] Levothyroxine Sodium [Levoxyl] 225 mcg PO MOTH 11/25/20 [History] Losartan Potassium 50 mg PO QAM 11/25/20 [History] Clobetasol Propionate [Temovate 0.05% Cream] 1 applic TOPICAL DIRECTED PRN 02/15/21 [History] Flecainide [Tambocor] 100 mg PO Q12HR #180 tablet 02/18/21 [Rx] Bumetanide [BUMEX] 0.25 mg PO DAILY #0 02/21/21 [Rx] Colchicine [Colcrys] 0.6 mg PO DAILY 14 Days #14 each 02/21/21 [Rx] Metoprolol Tartrate [Lopressor] 50 mg PO BID tab 02/21/21 [Rx] Follow up Appointment(s)/Referral(s): Yanira Díaz MD [Primary Care Provider] - 1-2 days Yanira Urrutia MD [STAFF PHYSICIAN] - 2 Weeks Discharge Disposition: HOME SELF-CARE
[2021-02-21 15:25] VITALS: BMI 39.2
[2021-02-22] MEDS ORDERED: COLCHICINE 0.6 MG EACH PO SCH (09:00)
== END 2021-02-21 17:13 | disposition home or self-care (01) ==
LOC: EC 18:38 → 3SCARD 20:40
PROVIDERS: ADMIT Internal Medicine; ATTEND Internal Medicine
DX: R07.1 Chest pain on breathing (principal); I48.19 Other persistent atrial fibrillation; J90 Pleural effusion, not elsewhere classified; I10 Essential (primary) hypertension; I45.10 Unspecified right bundle-branch block; R06.02 Shortness of breath; R42 Dizziness and giddiness; K90.0 Celiac disease; E78.5 Hyperlipidemia, unspecified; E03.9 Hypothyroidism, unspecified; K57.90 Diverticulosis of intestine, part unspecified, without perforation or abscess without bleeding; L43.9 Lichen planus, unspecified; G47.30 Sleep apnea, unspecified; L40.9 Psoriasis, unspecified; Z20.822 Contact with and (suspected) exposure to COVID-19; Z79.890 Hormone replacement therapy; Z79.01 Long term (current) use of anticoagulants; Z79.899 Other long term (current) drug therapy; Z88.1 Allergy status to other antibiotic agents; Z88.2 Allergy status to sulfonamides; Z91.013 Allergy to seafood; Z87.891 Personal history of nicotine dependence; Z86.718 Personal history of other venous thrombosis and embolism; Z86.19 Personal history of other infectious and parasitic diseases; Z98.41 Cataract extraction status, right eye; Z98.42 Cataract extraction status, left eye; Z98.890 Other specified postprocedural states; Z80.3 Family history of malignant neoplasm of breast; Z80.41 Family history of malignant neoplasm of ovary; Z82.49 Family history of ischemic heart disease and other diseases of the circulatory system
CPT/HCPCS: 96376; 96375; 96361; 96374; 99285; 36415; 93005; 93306; 83880; 80053; 80048; 83735 ×2; 84484 ×2; 85025 ×2; 85610 ×2; 85730 ×2; 87635; 71045; 71275; G0378 ×3; J2270; J1940; Q9967

== ENCOUNTER 2021-03-18 20:58 | Inpatient (IN) | payer MEDICARE ==
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
[2021-03-18] MEDS ORDERED: SODIUM CHLORIDE 0.9% 500 ML 500 ML IV ONE (21:39)
[2021-03-18] MEDS ORDERED: ONDANSETRON 4 MG/2 ML VIAL IVP STA (21:40)
--- NOTE | 2021-03-18 22:08 | XR ---
EXAMINATION TYPE: XR chest 1V portable DATE OF EXAM: 03/18/2021 COMPARISON: 02/19/2021 HISTORY: Syncope Heart is borderline enlarged. Lungs are clear of consolidation. There is no heart failure. There are no hilar masses. There is some increased interstitial density in the lower lung vargas. IMPRESSION: Mild pulmonary fibrosis. Pulmonary infiltrates at the lung bases are mostly cleared yamilet red to old exam. No heart failure.
--- NOTE | 2021-03-18 22:29 | CT ---
EXAMINATION TYPE: CT brain wo con DATE OF EXAM: 03/18/2021 COMPARISON: None HISTORY: syncope, fall CT DLP: 1131.4 mGycm Automated exposure control for dose reduction was used. There is some cerebral cortical atrophy. There is no mass effect nor midline shift. There is no sign of intracranial hemorrhage. Calvarium is intact. There is normal aeration of the mastoid sinuses. There is extensive mucosal thickening in the ethmoid and sphenoid sinuses. IMPRESSION: Sinusitis. No acute intracranial abnormality.
[2021-03-18] MEDS ORDERED: RX INFO: IV CONTRAST WAS GIVEN 1 EACH MISC MISCELLANE PRN (22:37)
[2021-03-18 22:44] LABS: Basophils % (A) 0 %; Eosinophils # (A) 0.2 k/uL (0-0.7); Eosinophils % (A) 1 %; HCT 43.4 % (34.0-46.0); HGB 14.5 gm/dL (11.4-16.0); Lymphocytes # (A) 1.1 k/uL (1.0-4.8); Lymphocytes % (A) 9 %; MCH 30.1 pg (25.0-35.0); MCHC 33.4 g/dL (31.0-37.0); Mean Platelet Volume 7.2; Monocytes # (A) 0.7 k/uL (0-1.0); Monocytes % (A) 5 %; Neutrophils # (A) 10.5 k/uL (1.3-7.7); Neutrophils % (A) 84 %; Platelet Count 211 k/uL (150-450); RBC 4.82 m/uL (3.80-5.40); RDW 13.7 % (11.5-15.5); WBC 12.6 k/uL (3.8-10.6)
[2021-03-18 22:56] LABS: Albumin 3.9 g/dL (3.5-5.0); Calcium 9.5 mg/dL (8.4-10.2); Potassium 4.4 mmol/L (3.5-5.1); Total Bilirubin 0.4 mg/dL (0.2-1.3); Total Protein 6.6 g/dL (6.3-8.2)
[2021-03-18 23:11] LABS: Prothrombin Time 10.8 sec (9.0-12.0)
--- NOTE | 2021-03-18 23:49 | CT ---
EXAMINATION TYPE: CT chest w con DATE OF EXAM: 03/18/2021 COMPARISON: 02/19/2021 HISTORY: fall CT DLP: 360.2 mGycm Automated exposure control for dose reduction was used. CONTRAST: Performed with IV Contrast, patient injected with 80 mL of Isovue 300. Images obtained from the thoracic inlet to the diaphragm with IV contrast. The lungs are clear of consolidation. There is no pleural effusion or pneumothorax. Heart size is rey rly normal. There is no pericardial effusion. There are no hilar masses. There is no mediastinal petros opathy. Thoracic aorta is intact. There is no aneurysm or dissection. There is 11.5 cm cyst on the ri ght kidney. Thoracic vertebra appear intact. There is no compression fracture. Sternum is intact. Visualized shou lder joints appear intact. I see no evidence of a rib fracture. IMPRESSION: No acute abnormality of the chest. No evidence of traumatic injury. There is clearing of the atelecta sis at the lung bases compared to old exam. There is clearing of the small pleural effusions.
[2021-03-19] MEDS ORDERED: NITROGLYCERIN SL TABS 0.4 MG TAB SUBLINGUAL PRN (02:32)
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
[2021-03-19 06:51] LABS: African American GFR (CKD) 62 (>60 ml/min/1.73 sqM); Anion Gap 7 mmol/L; Blood Urea Nitrogen 21 mg/dL (7-17); Carbon Dioxide 26 mmol/L (22-30); Chloride 106 mmol/L (98-107); Glucose 113 mg/dL (74-99); Non-African American GFR(CKD) 54 (>60 ml/min/1.73 sqM); Potassium 4.8 mmol/L (3.5-5.1); Sodium 139 mmol/L (137-145)
[2021-03-19] MEDS: LEVOTHYROXINE 75 MCG TAB PO SCH (06:53)
[2021-03-19] MEDS: METOPROLOL TARTRATE 50 MG TAB PO SCH ×2 (09:26→09:28)
[2021-03-19] MEDS: BUMETANIDE 0.5 MG TABLET PO SCH (09:26)
[2021-03-19] MEDS: APIXABAN 5 MG TAB PO SCH ×2 (09:26→21:47)
--- NOTE | 2021-03-19 14:34 | P.PN ---
<Jorge Luis Gordon - Last Filed: 03/19/21 14:10> Subjective Progress Note Date: 03/19/21 Hospital course: Patient is a 75-year-old female with a past medical history including hyperten nolberto, hyperlipidemia, atrial fibrillation status post unsuccessful ablation 3 weeks ago on anticoagulation with Eliquis, obstructive sleep apnea CPAP dependent nightly, and hypothyroidism. She presented to the hospital with a chief complaint of syncopal episode. Patient reports she had just finished washing dishes and felt fine with the exception of mild nausea throughout the day. She stated she was going into the living room to watch some television when she suddenly became very dizzy and the next thing she remembered was waking up staring at the kitchen ceiling. Patient has no recollection of how long she could have possibly been unresponsive and states it was likely at least 15-20 minutes. Patient states upon awakening she did have pain to the back of her head and a bump from where she hit it. Patient was seen and fully evaluated in the emergency department. A chest x-ray was completed showing mild pulmonary fibrosis. CT head revealed sinusitis with no acute intercranial abnormality. CT chest showing no acute abnormality of the chest with no evidence of traumatic injuries. EKG revealed sinus bradycardia at 54 bpm with frequent PACs. Labs obtained showing mild leukocytosis with WBC count 12.6 and acute kidney injury with creatinine of 1.35 with baseline creatinine of 0.80. Patient admitted under our services with consultation to cardiology for continued close medical management. Physical exam: Patient seen and fully evaluated at the bedside. Patient tearful and very anxious over syncopal episode reporting she has never before had a syncopal episode in his inferior because she lives alone. Currently patient denies having any headache, lightheadedness, dizziness, changes in her vision or hearing, chest pain or palpitations, shortness of breath, abdominal pain or discomfort, nausea, vomiting, or experiencing any numbness/tingling/weakness of her extremities. Upon review of portable parking officer, patient appears to be going in and out of atrial fibrillation having frequent episodes of bradycardia with lowest rate noted during assessment at 42 bpm. General: non toxic, no distress, appears at stated age Derm: warm, dry Head: atraumatic, normocephalic, symmetric Eyes: EOMI, no lid lag, anicteric sclera Mouth: no lip lesion, mucus membranes moist Cardiovascular: Irregular rhythm. Bradycardic rate. No murmur, gallop, or rub noted. Positive posterior tibial pulses bilaterally. Lungs: Respirations even, regular, and unlabored on room air. Lungs clear to auscultation bilaterally. No accessory muscle usage. Abdominal: Soft, nontender to palpation, no guarding, no appreciable organomegaly Ext: No gross muscle atrophy, trace edema, no contractures Neuro: GCS 15. CN II-XI grossly intact, no focal neuro deficits Psych: Alert, oriented, appropriate affect Plan of care: Syncopal episode, likely cardiac etiology -Telemetry monitoring -Consult cardiology -Echocardiogram -Fall, aspiration, and seizure precautions. -Hold flecainide pending further recommendations from cardiology. Bradycardia with underlying atrial fibrillation on anticoagulation with Eliquis and status post recent unsuccessful ablation -Telemetry monitoring -Consult cardiology -Echocardiogram -Hold flecainide pending further recommendations from cardiology. Hypertension -Monitor vital signs, continue daily medication regimen. Parameters placed on metoprolol to hold for heart rate less than 60. Hyperlipidemia -Continue atorvastatin 20 mg nightly. -Heart healthy diet. Hypothyroidism -Continue daily home medication regimen with level thyroxine. Obstructive sleep apnea -Continue use of home CPAP. CODE STATUS: Full code DVT prophylaxis: Quentin Discussed with: Patient and RN Anticipated discharge date: Clinical course to determine Anticipated discharge place: Home A total of 45 minutes was spent on the care of this complex patient more than 50% of the time was spent in counseling and care coordination. Objective - Vital Signs Vital signs: Vital Signs Temp 97.7 F 03/18/21 21:14 Pulse 74 03/19/21 13:41 Resp 20 03/19/21 13:41 BP 119/51 03/19/21 13:41 Pulse Ox 98 03/19/21 13:41 Intake & Output 03/18/21 03/19/21 03/19/21 18:59 06:59 18:59 Weight 103.873 kg - Labs CBC & Chem 7: 03/18/21 22:25 03/19/21 06:17 Labs: Abnormal Lab Results - Last 24 Hours (Table) 03/18/21 03/18/21 03/18/21 Range/Units 22:25 22:25 22:25 WBC 12.6 H (3.8-10.6) k/uL Neutrophils # 10.5 H (1.3-7.7) k/uL APTT 21.0 L (22.0-30.0) sec BUN (7-17) mg/dL Creatinine 1.35 H (0.52-1.04) mg/dL Glucose 130 H (74-99) mg/dL 03/19/21 Range/Units 06:17 WBC (3.8-10.6) k/uL Neutrophils # (1.3-7.7) k/uL APTT (22.0-30.0) sec BUN 21 H (7-17) mg/dL Creatinine (0.52-1.04) mg/dL Glucose 113 H (74-99) mg/dL <Carlyn Ford - Last Filed: 03/19/21 18:57> Objective - Vital Signs Vital signs: Vital Signs Temp 98.3 F 03/19/21 18:05 Pulse 48 L 03/19/21 18:05 Resp 18 03/19/21 18:05 BP 127/60 03/19/21 18:05 Pulse Ox 96 03/19/21 18:05 Intake & Output 03/18/21 03/19/21 03/19/21 18:59 06:59 18:59 Weight 103.873 kg 103.873 kg - Labs CBC & Chem 7: 03/18/21 22:25 03/19/21 06:17 Labs: Abnormal Lab Results - Last 24 Hours (Table) 03/18/21 03/18/21 03/18/21 Range/Units 22:25 22:25 22:25 WBC 12.6 H (3.8-10.6) k/uL Neutrophils # 10.5 H (1.3-7.7) k/uL APTT 21.0 L (22.0-30.0) sec BUN (7-17) mg/dL Creatinine 1.35 H (0.52-1.04) mg/dL Glucose 130 H (74-99) mg/dL Urine Blood (Negative) Ur Leukocyte Esterase (Negative) Hyaline Casts (0-2) /lpf Urine Mucus (None) /hpf 03/19/21 03/19/21 Range/Units 06:17 14:00 WBC (3.8-10.6) k/uL Neutrophils # (1.3-7.7) k/uL APTT (22.0-30.0) sec BUN 21 H (7-17) mg/dL Creatinine (0.52-1.04) mg/dL Glucose 113 H (74-99) mg/dL Urine Blood Trace H (Negative) Ur Leukocyte Esterase Trace H (Negative) Hyaline Casts 9 H (0-2) /lpf Urine Mucus Occasional H (None) /hpf Assessment and Plan Assessment: I discussed the care with Jorge Luis Gordon NP and reviewed the findings and plan as documented in the note above. I did not physically speak with or examine the patient on this date. Patient was seen after midnight by my partner Dr. Escudero.
[2021-03-19 14:51] LABS: Appearance,Urine Clear (Clear); Bilirubin,Urine Negative (Negative); Blood,Urine Trace (Negative); Color,Urine Yellow; Glucose,Urine (UA) Negative (Negative); Ketones,Urine Negative (Negative); Leukocyte Esterase,Urine Trace (Negative); Nitrite,Urine Negative (Negative); Protein,Urine Negative (Negative); Urobilinogen,Urine <2.0 mg/dL (<2.0)
[2021-03-19 14:52] LABS: Hyaline Casts,Urine 9 /lpf (0-2); Mucus,Urine Occasional /hpf; RBC,Urine <1 /hpf (0-5); Squamous Epithelial Cell,Urine 2 /hpf (0-4); WBC,Urine 4 /hpf (0-5)
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
--- NOTE | 2021-03-19 16:13 | ECHOF ---
Referral Reason:syncope MEASUREMENTS -------- HEIGHT: 167.6 cm WEIGHT: 103.9 kg BP: 121/70 RVIDd: 3.6 cm (< 3.3) IVSd: 1.3 cm (0.6 - 1.1) LVIDd: 4.1 cm (3.9 - 5.3) LVPWd: 1.3 cm (0.6 - 1.1) IVSs: 1.9 cm LVIDs: 2.8 cm LVPWs: 1.9 cm LA Diam: 3.9 cm (2.7 - 3.8) LAESV Index (A-L): 41.39 ml/m Ao Diam: 3.8 cm (2.0 - 3.7) AV Cusp: 2.3 cm (1.5 - 2.6) MV EXCURSION: 16.009 mm (> 18.000) MV EF SLOPE: 55 mm/s (70 - 150) EPSS: 0.8 cm AR PHT: 1038 ms RAP: 15.00 mmHg RVSP: 55.80 mmHg TAPSE: 23.08 mm FINDINGS -------- Sinus rhythm. Resting bradycardia (HR<60bpm). This was a technically adequate study. The left ventricular size is normal. There is mild concentric left ventricular hypertrophy. Overa ll left ventricular systolic function is normal with, an EF between 55 - 60 %. The right ventricle is mildly enlarged. LA is severely dilated >40 ml/m2 The right atrial size is normal. Interatrial and interventricular septum intact. There is mild aortic valve sclerosis. There is mild aortic regurgitation. Mild mitral annular calcification present. [id number] mitral regurgitation is present. Mild tricuspid regurgitation present. There is severe pulmonary hypertension. The right ventricul ar systolic pressure, as measured by Doppler, is 55.80mmHg. Trace/mild (physiologic) pulmonic regurgitation. The aortic root is dilated measuring 3.8cm. The inferior vena cava is dilated with poor inspiratory collapse which is consistent with estimated r ight atrial pressure of 15 mmHg. There is no pericardial effusion. CONCLUSIONS -------- 1. There is mild concentric left ventricular hypertrophy. 2. Overall left ventricular systolic function is normal with, an EF between 55 - 60 %. 3. The right ventricle is mildly enlarged. 4. LA is severely dilated >40 ml/m2 5. There is mild aortic valve sclerosis. 6. There is mild aortic regurgitation. 7. Mild mitral annular calcification present. 8. Vanf-mx-[id number] mitral regurgitation is present. 9. Mild tricuspid regurgitation present. 10. There is severe pulmonary hypertension. 11. Trace/mild (physiologic) pulmonic regurgitation. 12. The aortic root is dilated measuring 3.8cm. 13. The inferior vena cava is dilated with poor inspiratory collapse which is consistent with estimat ed right atrial pressure of 15 mmHg. 14. There is no pericardial effusion. STUDENT CAREER DEVELOPMENT SPECIALIST: Celia Yousif RDCS
[2021-03-19] MEDS: POTASSIUM CHLORIDE ER 10 MEQ TAB.ER.PRT PO SCH (21:47)
[2021-03-19] MEDS: ATORVASTATIN 20 MG TAB PO SCH (21:47)
[2021-03-19] MEDS: METOPROLOL TARTRATE 25 MG TAB PO SCH (21:48)
[2021-03-19] MEDS: TIMOLOL 0.5% OPHTH DROPS 5 ML BTL BOTH EYES SCH (22:00)
[2021-03-19] MEDS: DORZOLAMIDE HCL 2% DROPS 10 ML BTL BOTH EYES SCH (22:01)
[2021-03-19] MEDS: FLECAINIDE 50 MG TAB PO SCH (22:02)
[2021-03-19] MEDS ORDERED: CALCIUM CARBONATE 500 MG CHEWABLE PO PRN (22:42)
[2021-03-19] MEDS ORDERED: ACETAMINOPHEN TAB 325 MG TAB PO STA (22:42)
[2021-03-20] MEDS: LEVOTHYROXINE 75 MCG TAB PO SCH (05:41)
[2021-03-20] MEDS ORDERED: ACETAMINOPHEN TAB 325 MG TAB PO PRN (08:55)
[2021-03-20] MEDS: FLECAINIDE 50 MG TAB PO SCH ×2 (09:00→21:15)
[2021-03-20] MEDS: APIXABAN 5 MG TAB PO SCH ×2 (09:00→21:14)
[2021-03-20] MEDS: METOPROLOL TARTRATE 25 MG TAB PO SCH ×2 (09:54→21:16)
[2021-03-20 10:03] LABS: Chol/HDL Ratio 2.43; LDL Cholesterol,Calculated 51.2 mg/dL (0.0-131.0); VLDL Calculation 15.8 mg/dL (5.00-40.00)
[2021-03-20] MEDS: BUMETANIDE 0.5 MG TABLET PO SCH (10:10)
[2021-03-20 11:34] LABS: HCT 38.3 % (34.0-46.0); HGB 12.6 gm/dL (11.4-16.0); MCH 29.9 pg (25.0-35.0); MCV 90.6 fL (80.0-100.0); Platelet Count 172 k/uL (150-450); RBC 4.23 m/uL (3.80-5.40); RDW 13.8 % (11.5-15.5)
[2021-03-20 11:43] LABS: African American GFR (CKD) 71 (>60 ml/min/1.73 sqM); Anion Gap 5 mmol/L; Blood Urea Nitrogen 22 mg/dL (7-17); Carbon Dioxide 29 mmol/L (22-30); Chloride 102 mmol/L (98-107); Glucose 108 mg/dL (74-99); Magnesium 1.9 mg/dL (1.6-2.3); Non-African American GFR(CKD) 62 (>60 ml/min/1.73 sqM); Potassium 4.3 mmol/L (3.5-5.1); Sodium 136 mmol/L (137-145)
--- NOTE | 2021-03-20 14:17 | P.PN ---
<Jorge Luis Gordon - Last Filed: 03/20/21 13:58> Subjective Progress Note Date: 03/20/21 Hospital course: Patient is a 75-year-old female with a past medical history including hyperten nolberto, hyperlipidemia, atrial fibrillation status post unsuccessful ablation 3 weeks ago on anticoagulation with Eliquis, obstructive sleep apnea CPAP dependent nightly, and hypothyroidism. She presented to the hospital with a chief complaint of syncopal episode. Patient reports she had just finished washing dishes and felt fine with the exception of mild nausea throughout the day. She stated she was going into the living room to watch some television when she suddenly became very dizzy and the next thing she remembered was waking up staring at the kitchen ceiling. Patient has no recollection of how long she could have possibly been unresponsive and states it was likely at least 15-20 minutes. Patient states upon awakening she did have pain to the back of her head and a bump from where she hit it. Patient was seen and fully evaluated in the emergency department. A chest x-ray was completed showing mild pulmonary fibrosis. CT head revealed sinusitis with no acute intercranial abnormality. CT chest showing no acute abnormality of the chest with no evidence of traumatic injuries. EKG revealed sinus bradycardia at 54 bpm with frequent PACs. Labs obtained showing mild leukocytosis with WBC count 12.6 and acute kidney injury with creatinine of 1.35 with baseline creatinine of 0.80. Patient admitted under our services with consultation to cardiology for continued close medical management. Physical exam: Patient seen and fully evaluated at the bedside. She continues to have persistent bradycardia with heart rate in the low to mid 40s. Patient denies any further episodes of dizziness or lightheadedness and denies any chest pain, palpitations, shortness of breath, abdominal pain, nausea, vomiting, or experiencing any numbnesss, tingling, or weakness in extremities. General: non toxic, no distress, appears at stated age Derm: warm, dry Head: atraumatic, normocephalic, symmetric Eyes: EOMI, no lid lag, anicteric sclera Mouth: no lip lesion, mucus membranes moist Cardiovascular: Irregular rhythm. Bradycardic rate. No murmur, gallop, or rub noted. Positive posterior tibial pulses bilaterally. Lungs: Respirations even, regular, and unlabored on room air. Lungs clear to auscultation bilaterally. No accessory muscle usage. Abdominal: Soft, nontender to palpation, no guarding, no appreciable organomegaly Ext: No gross muscle atrophy, 1+ edema, no contractures Neuro: GCS 15. CN II-XI grossly intact, no focal neuro deficits Psych: Alert, oriented, appropriate affect Plan of care: Syncopal episode, likely cardiac etiology -Telemetry monitoring -Cardiology following, plans for possible pacemaker in near future -Echocardiogram revealing an ejection fraction of 55-60%. -Fall, aspiration, and seizure precautions. -Resume Flecainide and metoprolol decreased to 25 mg twice a day Bradycardia with underlying atrial fibrillation on anticoagulation with Eliquis and status post recent unsuccessful ablation -Telemetry monitoring -Consult cardiology -Echocardiogram -Hold flecainide pending further recommendations from cardiology. Hypertension -Monitor vital signs, continue daily medication regimen. Parameters placed on metoprolol to hold for heart rate less than 60. Hyperlipidemia -Continue atorvastatin 20 mg nightly. -Heart healthy diet. Hypothyroidism -Continue daily home medication regimen with level thyroxine. Obstructive sleep apnea -Continue use of home CPAP. CODE STATUS: Full code DVT prophylaxis: Natividadqureji Discussed with: Patient and RN Anticipated discharge date: Clinical course to determine Anticipated discharge place: Home A total of 45 minutes was spent on the care of this complex patient more than 50% of the time was spent in counseling and care coordination. Objective - Vital Signs Vital signs: Vital Signs Temp 98.3 F 03/20/21 07:00 Pulse 48 L 03/20/21 08:00 Resp 16 03/20/21 08:00 BP 109/72 03/20/21 07:00 Pulse Ox 98 03/20/21 07:00 Intake & Output 03/19/21 03/20/21 03/20/21 18:59 06:59 18:59 Intake Total 200 Balance 200 Weight 103.873 kg Intake: Oral 200 Other: Voiding Method Toilet Toilet # Voids 2 - Labs CBC & Chem 7: 03/20/21 11:04 03/20/21 11:04 Labs: Abnormal Lab Results - Last 24 Hours (Table) 03/19/21 Range/Units 14:00 Urine Blood Trace H (Negative) Ur Leukocyte Esterase Trace H (Negative) Hyaline Casts 9 H (0-2) /lpf Urine Mucus Occasional H (None) /hpf <Carlyn Ford - Last Filed: 03/20/21 14:40> Objective - Vital Signs Vital signs: Vital Signs Temp 98.3 F 03/20/21 07:00 Pulse 48 L 03/20/21 14:00 Resp 16 03/20/21 14:00 BP 109/72 03/20/21 07:00 Pulse Ox 98 03/20/21 07:00 Intake & Output 03/19/21 03/20/21 03/20/21 18:59 06:59 18:59 Intake Total 400 Balance 400 Weight 103.873 kg Intake: Oral 400 Other: Voiding Method Toilet Toilet # Voids 2 1 - Labs CBC & Chem 7: 03/20/21 11:04 03/20/21 11:04 Labs: Abnormal Lab Results - Last 24 Hours (Table) 03/19/21 03/20/21 Range/Units 14:00 11:04 Sodium 136 L (137-145) mmol/L BUN 22 H (7-17) mg/dL Glucose 108 H (74-99) mg/dL Urine Blood Trace H (Negative) Ur Leukocyte Esterase Trace H (Negative) Hyaline Casts 9 H (0-2) /lpf Urine Mucus Occasional H (None) /hpf Assessment and Plan Assessment: Patient seen and examined independently. Patient was also seen by Jorge Luis Gordon NP and case was discussed. I am in agreement with subjective, physical exam, assessment and plan as written above and amended below. No chest pain General: non toxic, no distress, appears at stated age Derm: warm, dry Head: atraumatic, normocephalic, symmetric Eyes: EOMI, no lid lag, anicteric sclera Mouth: no lip lesion, mucus membranes moist Cardiovascular: S1S2 reg, no murmur, positive posterior tibial pulse bilateral, Lungs: Decreased bs bilateral, no rhonchi, no rales , no accessory muscle use Ext: no gross muscle atrophy, 2+ edema, no contractures Psych: Alert, oriented, tearful
--- NOTE | 2021-03-20 14:48 | P.PN ---
Subjective Progress Note Date: 03/20/21 Principal diagnosis: syncope This is a pleasant 75-year-old female patient who follows with Dr. Urrutia in the office. She has a history of persistent atrial fibrillation status post cardioversion and ablation about 4 weeks ago had been in persistent atrial fibrillation following the ablation. She presented to the emergency department after a syncopal episode at home. She was in her kitchen cleaning up after eating dinner and became acutely dizzy and the next thing she knew she was waking up wondering why she was sleeping on the floor. Upon visitation the patient was in sinus mechanism with first-degree AV block and bradycardia with PACs. Laboratory values showed a low platelet count of 12,600, BUN 15, creatinine 1.35, and he for a BNP of 1630 and troponins negative 3. Pressure has been stable with heart rates running in the 40s and 50s. This x-ray showed mild pulmonary fibrosis, pulmonary infiltrates of the lung bases are mostly clear compared to old exam, normal heart failure. Computed tomography scan of the brain showed sinusitis, no acute intracranial abnormality. Computed tomography scan of the chest showed no acute abnormality of the chest, no edward dence of traumatic injury, there is clearing of the atelectasis at the lung bases compared to old exam and clearing of the small pleural effusions. Upon examination patient is resting in a chair. She overall feels better she's had no further dizziness. She's had no chest discomfort. She has stable ANDERSON and edema. 03/20/21 The patient was seen and examined resting comfortably in a chair and at the bedside. Her heart rate remains low nursing staff has been holding metoprolol. Heart rate currently in the mid to high 40s. Blood pressure remained stable. She remains on flecainide 100 mg by mouth twice a day. She is maintaining sinus mechanism with some very brief runs of PAT with RVR lasting only seconds. Echocardiogram with Doppler study done yesterday showed a normal LV systolic function with an ejection fraction of 55-60%, mildly enlarged RV, severely dilated LA, mild AI, mild to moderate MR, mild TR and severe pulmonary hypertension with an RVSP of 55.8 mmHg. She's had no complaints of dizziness or lightheadedness. She overall just does not feel well. She is complaining of some shortness of breath. She has some lower extremity edema which seems to be better compared to yesterday. Objective - Vital Signs Vital signs: Vital Signs Temp 98.3 F 03/20/21 07:00 Pulse 48 L 03/20/21 08:00 Resp 16 03/20/21 08:00 BP 109/72 03/20/21 07:00 Pulse Ox 98 03/20/21 07:00 Intake & Output 03/19/21 03/20/21 03/20/21 18:59 06:59 18:59 Intake Total 200 Balance 200 Weight 103.873 kg Intake: Oral 200 Other: Voiding Method Toilet Toilet # Voids 2 - Exam PHYSICAL EXAMINATION: This is a 75-year-old female in no apparent distress at the time of my examination. VITAL SIGNS: Blood pressure 109/72, heart rate 48, respirations 16, temp 98.3. Patient is 98% on room air. HEENT: Head is atraumatic, normocephalic. Pupils are equal, round. Sclerae anicteric. Conjunctivae are clear. Mucous membranes of the mouth are moist. Neck is supple. There is no elevated jugular venous pressure. No carotid bruit is heard. CHEST EXAMINATION: Clear to auscultation bilaterally. No wheezes rales or rhonchi. Respirations even and nonlabored. HEART EXAMINATION: Heart regular, positive S1 and S2. No S3. No S4. With a systolic murmur. ABDOMEN: Soft, nontender. Bowel sounds are heard. No organomegaly noted. EXTREMITIES: 2+ peripheral pulses with evidence of mild peripheral edema and no calf tenderness noted. NEUROLOGIC EXAMINATION: Patient is awake, alert and oriented x3. - Labs CBC & Chem 7: 03/20/21 11:04 03/20/21 11:04 Labs: Abnormal Lab Results - Last 24 Hours (Table) 03/19/21 Range/Units 14:00 Urine Blood Trace H (Negative) Ur Leukocyte Esterase Trace H (Negative) Hyaline Casts 9 H (0-2) /lpf Urine Mucus Occasional H (None) /hpf Assessment and Plan Assessment: #1 syncope #2 persistent atrial fibrillation, currently maintaining sinus mechanism, anticoagulated on Eliquis #3 tachybradycardia syndrome, currently bradycardic #4 hypothyroidism #5 hypertension #6 pulmonary hypertension Plan: From cardiology's perspective continue flecainide. Continue to hold metoprolol for heart rate less than 50. Syncopal episode likely related to post conversion pause upon conversion to sinus mechanism. Patient has evidence of tachybradycardia syndrome and continues to be bradycardic despite holding beta efren. We will keep the patient nothing by mouth after midnight. We will discuss with Dr. Monreal possibility of permanent pacemaker implantation to be done tomorrow. OPERATIONS SUPPORT MANAGER note has been reviewed, I agree with a documented findings and plan of care. Patient was seen and examined.
[2021-03-20] MEDS: POTASSIUM CHLORIDE ER 10 MEQ TAB.ER.PRT PO SCH (21:15)
[2021-03-20] MEDS: ATORVASTATIN 20 MG TAB PO SCH (21:15)
[2021-03-20] MEDS: TIMOLOL 0.5% OPHTH DROPS 5 ML BTL BOTH EYES SCH (21:16)
[2021-03-20] MEDS: DORZOLAMIDE HCL 2% DROPS 10 ML BTL BOTH EYES SCH (21:16)
[2021-03-21] MEDS ORDERED: LEVOTHYROXINE 75 MCG TAB PO SCH (06:30)
[2021-03-21] MEDS ORDERED: ceFAZolin 1 GM in SODIUM CHLORIDE 0.9% 250 ML IRRIGATION PRN (07:00)
[2021-03-21] MEDS ORDERED: SODIUM CHLORIDE 0.9% 1,000 ML IV SCH ×2 (08:15)
[2021-03-21 08:20] LABS: Glucose,Whole Blood 110 mg/dL (75-99)
[2021-03-21] MEDS: APIXABAN 5 MG TAB PO SCH ×2 (08:53→20:28)
[2021-03-21] MEDS: BUMETANIDE 0.5 MG TABLET PO SCH (08:54)
[2021-03-21] MEDS: FLECAINIDE 50 MG TAB PO SCH ×2 (08:55→23:33)
[2021-03-21] MEDS: METOPROLOL TARTRATE 25 MG TAB PO SCH ×2 (10:33→20:27)
[2021-03-21 10:48] LABS: HGB 11.9 g/dL (12.0-15.0); MCH 29.3 pg (27.0-32.0); MCHC 32.2 g/dL (32.0-37.0); MCV 91.1 fL (80.0-97.0); Mean Platelet Volume 9.9 fL (9.5-12.2); Platelet Count 187 X 10*3/uL (140-440); RBC 4.06 X 10*6/uL (4.10-5.20); RDW 13.6 % (11.5-14.5); WBC 7.69 X 10*3/uL (4.50-10.00)
[2021-03-21] MEDS ORDERED: MIDAZOLAM 2 MG/2 ML VIAL ONE (11:22)
[2021-03-21] MEDS ORDERED: PROPOFOL 10 MG/ML 20 ML VIAL IV ONE (11:22)
[2021-03-21] MEDS ORDERED: fentaNYL (PF) 50 MCG/ML 2 ML AMP ONE (11:22)
--- NOTE | 2021-03-21 11:38 | P.PN ---
Subjective Progress Note Date: 03/21/21 Hospital course: Patient is a 75-year-old female with a past medical history including hypertension, hyperlipidemia, atrial fibrillation status post unsuccessful a blation 3 weeks ago on anticoagulation with Eliquis, obstructive sleep apnea CPAP dependent nightly, and hypothyroidism. She presented to the hospital with a chief complaint of syncopal episode. Patient reports she had just finished washing dishes and felt fine with the exception of mild nausea throughout the day. She stated she was going into the living room to watch some television when she suddenly became very dizzy and the next thing she remembered was waking up staring at the kitchen ceiling. Patient has no recollection of how long she could have possibly been unresponsive and states it was likely at least 15-20 minutes. Patient states upon awakening she did have pain to the back of her head and a bump from where she hit it. Patient was seen and fully evaluated in the emergency department. A chest x-ray was completed showing mild pulmonary fibrosis. CT head revealed sinusitis with no acute intercranial abnormality. CT chest showing no acute abnormality of the chest with no evidence of traumatic injuries. EKG revealed sinus bradycardia at 54 bpm with frequent PACs. Labs obtained showing mild leukocytosis with WBC count 12.6 and acute kidney injury with creatinine of 1.35 with baseline creatinine of 0.80. Patient admitted under our services with consultation to cardiology for continued close medical management. Physical exam: Patient seen and fully evaluated at the bedside. She continues to have persistent bradycardia with heart rate dipping down in the low to mid 40s. Patient continues to deny any further episodes of dizziness or lightheadedness and denies any chest pain, palpitations, shortness of breath, abdominal pain, nausea, vomiting, or experiencing any numbnesss, tingling, or weakness in extremities. Patient is scheduled for pacemaker placement today at 11:30 with cardiology. General: non toxic, no distress, appears at stated age Derm: warm, dry Head: atraumatic, normocephalic, symmetric Eyes: EOMI, no lid lag, anicteric sclera Mouth: no lip lesion, mucus membranes moist Cardiovascular: Regular rhythm. Bradycardic rate. No murmur, gallop, or rub noted. Positive posterior tibial pulses bilaterally. Lungs: Respirations even, regular, and unlabored on room air. Lungs clear to auscultation bilaterally. No accessory muscle usage. Abdominal: Soft, nontender to palpation, no guarding, no appreciable organomegaly Ext: No gross muscle atrophy, 1+ edema, no contractures Neuro: GCS 15. CN II-XI grossly intact, no focal neuro deficits Psych: Alert, oriented, appropriate affect Plan of care: Syncopal episode, likely cardiac etiology -Telemetry monitoring -Cardiology following, plans for pacemaker placement this morning. -Echocardiogram revealing an ejection fraction of 55-60%. Bradycardia with underlying atrial fibrillation on anticoagulation with Eliquis and status post recent unsuccessful ablation -Telemetry monitoring -Cardiology following, plans for pacemaker placement this morning. -Echocardiogram -Hold flecainide pending further recommendations from cardiology. Hypertension -Monitor vital signs, continue daily medication regimen. Parameters placed on metoprolol to hold for heart rate less than 60. Hyperlipidemia -Continue atorvastatin 20 mg nightly. -Heart healthy diet. Hypothyroidism -Continue daily home medication regimen with level thyroxine. Obstructive sleep apnea -Continue use of home CPAP. CODE STATUS: Full code DVT prophylaxis: Eliquis Discussed with: Patient and RN Anticipated discharge date: Possibly tomorrow pending pacemaker placement today. Anticipated discharge place: Home A total of 45 minutes was spent on the care of this complex patient more than 50% of the time was spent in counseling and care coordination. Objective - Vital Signs Vital signs: Vital Signs Temp 98.3 F 03/21/21 07:00 Pulse 56 L 03/21/21 07:00 Resp 16 03/21/21 07:00 BP 119/53 03/21/21 07:00 Pulse Ox 94 L 03/21/21 07:00 Intake & Output 03/20/21 03/21/21 03/21/21 18:59 06:59 18:59 Intake Total 600 Balance 600 Intake: Oral 600 Other: Voiding Method Toilet Toilet Toilet # Voids 1 3 - Labs CBC & Chem 7: 03/21/21 07:37 03/20/21 11:04 Labs: Abnormal Lab Results - Last 24 Hours (Table) 03/20/21 03/21/21 03/21/21 Range/Units 11:04 07:37 08:19 RBC 4.06 L (4.10-5.20) X 10*6/uL Hgb 11.9 L (12.0-15.0) g/dL Hct 37.0 L (37.2-46.3) % Sodium 136 L (137-145) mmol/L BUN 22 H (7-17) mg/dL Glucose 108 H (74-99) mg/dL POC Glucose (mg/dL) 110 H (75-99) mg/dL
[2021-03-21] MEDS ORDERED: IV FLUID CONTINUATION 900 ML IV ONE (11:40)
[2021-03-21] MEDS ORDERED: IOPAMIDOL-370 50ML BTL INJ ONE (11:54)
[2021-03-21] MEDS ORDERED: LIDOCAINE 1% INJ 10MG/ML (20 ML MDV) ONE ×2 (12:04→12:21)
[2021-03-21] MEDS ORDERED: LIDOCAINE 1% INJ 10MG/ML (20 ML MDV) SQ ONE ×2 (12:14→12:18)
--- NOTE | 2021-03-21 13:19 | P.PCN ---
Preoperative Diagnosis: Left upper extremity venogram 10 mL every dye injected in the left arm Patent subclavian and axillary venous system on the left side Plan Proceed with dual-chamber pacemaker implantation
[2021-03-21] MEDS ORDERED: HYDROcodone/APAP 5-325MG 1 EACH TAB PO PRN (13:24)
[2021-03-21] MEDS ORDERED: ACETAMINOPHEN IV (For NPO) 1,000 MG in EMPTY BAG 1 BAG IVPB ONE (13:24)
[2021-03-21] MEDS ORDERED: ACETAMINOPHEN TAB 325 MG TAB PO PRN (13:24)
--- NOTE | 2021-03-21 13:56 | PCN ---
PROCEDURE NOTE Vicky Atwood is a 75-year-old female who presented with atrial fibrillation and converted to sinus rhythm with syncope (sick sinus syndrome). A dual-chamber pacemaker was advised by Dr. Urrutia. Patient was brought to the EP lab in a fasting state. Written informed consent was obtained prior to the procedure. The left shoulder area was prepped and draped as per protocol. 1% lidocaine was used for local anesthesia. A 4 cm incision was made parallel to the deltopectoral groove, about 1.5 cm medial to it. The incision was carried down to the level of the pectoralis muscle. A subfascial pocket was made. Hemostasis was assured. The left axillary vein was accessed at 2 separate points under fluoroscopy and via appropriately-sized introducer sheaths, 2 leads were positioned in the right heart. The atrial lead was a passive Medtronic lead model #4574, 45 cm in length and serial number [id number]. P-waves 1.52 mV, pacing impedance 608 ohms, pacing threshold 1 V at 0.4 milliseconds. The RV lead was a 58 cm Medtronic model #5076, serial number [id number]. R-waves 9-10 mV, pacing impedance 741 ohms, pacing threshold 1.5 V at 0.4 milliseconds, and this lead was screwed in the RV septum. Both leads were secured to the underlying pectoralis fascia using 2 nonabsorbable sutures. Pocket was irrigated with antibiotic solution. Leads were connected to the generator. (Model number W1DR01, serial number [id number]) The leads and generator were then placed in subfascial pocket and the wound was closed in 3 layers and dressed per protocol. RESULTS: Successful dual-chamber pacemaker implantation for sick sinus syndrome and likely post- conversion pauses with syncope. PLAN: Continue anticoagulation for atrial fibrillation for stroke prevention. Continue flecainide 100 mg twice daily along with metoprolol. MMODL / IJN: [id number] /
--- NOTE | 2021-03-21 17:22 | XR ---
EXAMINATION TYPE: XR chest 1V portable DATE OF EXAM: 03/21/2021 COMPARISON: 03/18/2021 HISTORY: Syncope. Check lead placement. TECHNIQUE: FINDINGS: Single view shows left axillary pacemaker. There are leads tips over the right atrium and r ight ventricle. There is mild pulmonary vascular congestion. There is slight blunting of the costophr enic angles. Heart is slightly enlarged. IMPRESSION: Mild heart failure and small pleural effusions. Pleural fluid increased compared to recen t exam. Pulmonary congestion increased.
[2021-03-21] MEDS: ATORVASTATIN 20 MG TAB PO SCH (20:27)
[2021-03-21] MEDS: POTASSIUM CHLORIDE ER 10 MEQ TAB.ER.PRT PO SCH (20:28)
[2021-03-21] MEDS: DORZOLAMIDE HCL 2% DROPS 10 ML BTL BOTH EYES SCH (20:28)
[2021-03-21] MEDS: TIMOLOL 0.5% OPHTH DROPS 5 ML BTL BOTH EYES SCH (23:33)
[2021-03-22] MEDS: LEVOTHYROXINE 75 MCG TAB PO SCH (05:22)
[2021-03-22 07:40] VITALS: BP 129/83; PULSE 56; RESP 16; TEMP 97.9
[2021-03-22] MEDS: APIXABAN 5 MG TAB PO SCH (10:10)
[2021-03-22] MEDS: FLECAINIDE 50 MG TAB PO SCH (10:11)
[2021-03-22] MEDS: BUMETANIDE 0.5 MG TABLET PO SCH ×2 (10:11→10:19)
[2021-03-22] MEDS: METOPROLOL TARTRATE 25 MG TAB PO SCH (10:12)
--- NOTE | 2021-03-22 10:38 | P.DS ---
Providers Date of admission: 03/21/21 10:35 Expected date of discharge: 03/22/21 Attending physician: Lisa Escudero MD Consults: 03/19/21 02:32 Consult Physician Routine Consulting Provider: Jesus Langley Consult Reason/Comments: syncope Do you want consulting provider notified?: Yes Primary care physician: Yanira Díaz MD Hospital Course: Discharge Diagnosis: Syncopal episode, secondary to tachy-bradycardic arrhythmia resulting in pacemaker placement Bradycardia with underlying atrial fibrillation with runs of RVR on anticoagula tion with Eliquis and status post recent unsuccessful ablation Hypertension Hyperlipidemia Hypothyroidism Obstructive sleep apnea Hospital Course: Patient is a 75-year-old female with a past medical history including hypertension, hyperlipidemia, atrial fibrillation status post unsuccessful ablation 3 weeks ago on anticoagulation with Eliquis, obstructive sleep apnea CPAP dependent nightly, and hypothyroidism. She presented to the hospital with a chief complaint of syncopal episode. Patient reports she had just finished washing dishes and felt fine with the exception of mild nausea throughout the day. She stated she was going into the living room to watch some television when she suddenly became very dizzy and the next thing she remembered was waking up staring at the kitchen ceiling. Patient has no recollection of how long she could have possibly been unresponsive and states it was likely at least 15-20 minutes. Patient states upon awakening she did have pain to the back of her head and a bump from where she hit it. Patient was seen and fully evaluated in the emergency department. A chest x-ray was completed showing mild pulmonary fibrosis. CT head revealed sinusitis with no acute intercranial abnormality. CT chest showing no acute abnormality of the chest with no evidence of traumatic injuries. EKG revealed sinus bradycardia at 54 bpm with frequent PACs. Labs obtained showing mild leukocytosis with WBC count 12.6 and acute kidney injury with creatinine of 1.35 with baseline creatinine of 0.80. Patient admitted un tian our services with consultation to cardiology for continued close medical management. Patient was found to have tachycardiabradycardic arrhythmia resulting in need for pacemaker placement. Patient underwent placement of pacemaker with Dr. Monreal on 03/21/21. Patient's condition has stabilized, heart rate remains high 50s-60's status post placement of pacemaker. Patient medically clear for discharge at this time and cleared by cardiology. Patient instructed to follow-up with Device Clinic and [facility] as discussed. Physical exam: Patient condition stable at this time. She was seen and fully evaluated at the bedside, she was sitting up in the chair. Patient reports mild incisional discomfort but denies having any headache, lightheadedness, dizziness, chest pain or palpitations, shortness of breath, dyspnea with exertion, or experiencing any numbness/tingling/weakness in her extremities. General: non toxic, no distress, appears at stated age Derm: warm, dry Head: atraumatic, normocephalic, symmetric Eyes: EOMI, no lid lag, anicteric sclera Mouth: no lip lesion, mucus membranes moist Cardiovascular: Regular rhythm. Regular rate.. No murmur, gallop, or rub noted. Positive posterior tibial pulses bilaterally. Pacemaker left anterior chest, postsurgical dressing in place. Lungs: Respirations even, regular, and unlabored on room air. Lungs clear to auscultation bilaterally. No accessory muscle usage. Abdominal: Soft, nontender to palpation, no guarding, no appreciable organomegaly Ext: No gross muscle atrophy, 1+ edema, no contractures Neuro: GCS 15. CN II-XI grossly intact, no focal neuro deficits Psych: Alert, oriented, appropriate affect A total of 45 minutes of time were spent preparing this complex discharge summary. Plan - Discharge Summary Discharge Rx Participant: No New Discharge Prescriptions: New RX: Metoprolol Tartrate [Lopressor] 25 mg PO BID 30 Days #60 tab RX: HYDROcodone/APAP 5-325MG [Kemah 5-325] 1 each PO Q4HR PRN #15 tab PRN Reason: Pain Continue RX: Multivit-Min/FA/Lycopen/Lutein [Centrum Silver Tablet] 1 tab PO DAILY RX: Cyanocobalamin [Vitamin B-12] 1,250 mcg PO DAILY RX: Calcium Carbonate/Vitamin D3 [Calcium 600-Vit D3 5 Mcg (200 Iu)] 1 tab PO DAILY RX: Levothyroxine Sodium [Levoxyl] 150 mcg PO SUTUWEFRSA RX: Potassium Chloride ER [K-Dur 10] 10 meq PO HS RX: Atorvastatin [Lipitor] 20 mg PO HS RX: Cholecalciferol (Vitamin D3) [Vitamin D3 (4,000 Iu)] 100 mcg PO DAILY RX: Losartan Potassium 50 mg PO DAILY RX: Levothyroxine Sodium [Levoxyl] 225 mcg PO MOTH RX: Apixaban [Eliquis] 5 mg PO BID RX: Dorzolamide/Timolol/Pf [Dorzolamide 2%-Timolol 0.5%] 1 drop BOTH EYES HS RX: Flecainide [Tambocor] 100 mg PO Q12HR #180 tablet RX: Clobetasol Propionate [Temovate 0.05% Cream] 1 applic TOPICAL DIRECTED PRN PRN Reason: PSORIASIS RX: Bumetanide [BUMEX] 0.25 mg PO DAILY #0 Discontinued RX: Metoprolol Tartrate [Lopressor] 50 mg PO BID tab Discharge Medication List RX: Atorvastatin [Lipitor] 20 mg PO HS 05/25/16 [History] RX: Calcium Carbonate/Vitamin D3 [Calcium 600-Vit D3 5 Mcg (200 Iu)] 1 tab PO DAILY 05/25/16 [History] RX: Cyanocobalamin [Vitamin B-12] 1,250 mcg PO DAILY 05/25/16 [History] RX: Levothyroxine Sodium [Levoxyl] 150 mcg PO SUTUWEFRSA 05/25/16 [History] RX: Multivit-Min/FA/Lycopen/Lutein [Centrum Silver Tablet] 1 tab PO DAILY 05/25/16 [History] RX: Potassium Chloride ER [K-Dur 10] 10 meq PO HS 05/25/16 [History] RX: Apixaban [Eliquis] 5 mg PO BID 11/25/20 [History] RX: Cholecalciferol (Vitamin D3) [Vitamin D3 (4,000 Iu)] 100 mcg PO DAILY 11/25/20 [History] RX: Dorzolamide/Timolol/Pf [Dorzolamide 2%-Timolol 0.5%] 1 drop BOTH EYES HS 11/25/20 [History] RX: Levothyroxine Sodium [Levoxyl] 225 mcg PO MOTH 11/25/20 [History] RX: Losartan Potassium 50 mg PO DAILY 11/25/20 [History] RX: Clobetasol Propionate [Temovate 0.05% Cream] 1 applic TOPICAL DIRECTED PRN 02/15/21 [History] RX: Flecainide [Tambocor] 100 mg PO Q12HR #180 tablet 02/18/21 [Rx] RX: Bumetanide [BUMEX] 0.25 mg PO DAILY #0 02/21/21 [Rx] RX: HYDROcodone/APAP 5-325MG [Kemah 5-325] 1 each PO Q4HR PRN #15 tab 03/22/21 [Rx] RX: Metoprolol Tartrate [Lopressor] 25 mg PO BID 30 Days #60 tab 03/22/21 [Rx] Follow up Appointment(s)/Referral(s): Yanira Díaz MD [Primary Care Provider] - 1-2 days Yanira Urrutia MD [STAFF PHYSICIAN] - 1 Week (Office will call with appointment and time.) Patient Instructions/Handouts: Fall Prevention for Older Adults (ED), Pacemaker (DC) Activity/Diet/Wound Care/Special Instructions: PATIENT EDUCATION MATERIAL Instructions following a heart rhythm device implant. 1. Keep dressing DRY for 5 DAYS. You may cover the area with Saran or Cling Wrap, prior to a shower. 2. The dressing will be removed in the [facility] Clinic at [facility]. Absorbable sutures were used to close the wound. 3. Avoid raising the left arm above the shoulder level. 4 week restriction 4. Avoid arm movements, like backscratching, rubbing the head, or pulling on a cord. 4 weeks restriction 5. Gentle range of motion movements of the shoulder, closest to the incision should be performed to avoid a frozen shoulder. (Pendulum exercises of the shoulder) 6. The opposite arm may be used freely. 7. Avoid driving for 7 days. 8. Avoid activities such as golfing, swimming, weed whacking, lifting more than 10 pounds weight, bowling, gymnastics and weight training/lifting. (6 weeks restriction) 9. Activities such as wood chopping with an axe, pull-ups in the gymnasium, power lifting, arc-welding, being close to home induction cooktops will always be a problem. 10. Arm sling is only a reminder not to raise the arm above the head. You do not need to keep the arm completely immobilized. Your free to move the arm and use it and for normal activities. In case of any problems, please call [facility] [place], @ [phone], Attention: Device Clinic Device clinic follow-up in 5 days Follow-up with primary interior design assistant in 2-3 months. Discharge Disposition: HOME SELF-CARE
--- NOTE | 2021-03-22 11:05 | P.PN ---
Subjective This is a pleasant 75-year-old female past medical history significant for atrial fibrillation status post cardioversion and ablation. She underwent permanent pacemaker implantation yesterday secondary to tachybradycardia syndrome. She is seen and examined sitting up eating breakfast in no acute distress. She denies symptoms of chest pain or shortness of breath. She has not had any significant palpitations or dizziness. Blood pressure 199/83 heart rate 56 afebrile maintaining oxygen saturation on room air. Telemetry tracings reviewed, she is currently in sinus mechanism. No evidence of pericardial effusion or pneumothorax noted on chest x-ray. Device has been interrogated by [employer] insurance verification representative and is functioning appropriately. GENERAL: Well-appearing, well-nourished and in no acute distress. NECK: Supple without JVD or thyromegaly. LUNGS: Breath sounds clear to auscultation bilaterally. Respiration equal and u nlabored. No wheezes, rales or rhonchi. HEART: Regular rate and rhythm with systolic ejection murmur at the base, no rubs or gallops. S1 and S2 heard. Dressing in place over pacemaker insertion site. Clean, dry and intact. EXTREMITIES: Normal range of motion, no edema. No clubbing or cyanosis. Pe ripheral pulses intact. Sling in place to the left arm. ASSESSMENT Syncope Atrial fibrillation with tachy-immanuel syndrome s/p PPM - Medtronic Hypertension Pulmonary hypertension Hypothyroidism PLAN Stable for discharge on current medical regimen. Follow up with Dr. Urrutia and the device clinic next week. Nurse Practitioner note has been reviewed, I agree with a documented findings and plan of care. Patient was seen and examined. Objective - Vital Signs Vital signs: Vital Signs Temp 97.9 F 03/22/21 07:30 Pulse 56 L 03/22/21 07:30 Resp 16 03/22/21 07:30 BP 129/83 03/22/21 07:30 Pulse Ox 97 03/22/21 07:30 Intake & Output 03/21/21 03/22/21 03/22/21 18:59 06:59 18:59 Intake Total 1000 Balance 1000 Intake: IV 550 Intake, IV Titration 250 Amount Sodium Chloride 0.9% 1, 250 000 ml @ 50 mls/hr IV . Q20H RADHA Rx#:[id number] Oral 200 Other: Voiding Method Toilet Toilet # Voids 2 1 - Labs CBC & Chem 7: 03/21/21 07:37 03/20/21 11:04
== END 2021-03-22 13:36 | disposition home or self-care (01) | DRG 243 ==
LOC: EC 20:58 → 6NMEDSUR 03-19 02:32 → OBSVTOIN 03-21 10:35
PROVIDERS: ADMIT Internal Medicine; ATTEND Internal Medicine
PROC: 5A09357 Assistance with Respiratory Ventilation, Less than 24 Consecutive Hours, Continuous Positive Airway Pressure (ICD-10-PCS; 2021-03-20)
PROC: 0JH606Z Insertion of Pacemaker, Dual Chamber into Chest Subcutaneous Tissue and Fascia, Open Approach (ICD-10-PCS; principal; 2021-03-21 15:00)
PROC: 02H63JZ Insertion of Pacemaker Lead into Right Atrium, Percutaneous Approach (ICD-10-PCS; principal; 2021-03-21 15:00)
PROC: 02HK3JZ Insertion of Pacemaker Lead into Right Ventricle, Percutaneous Approach (ICD-10-PCS; principal; 2021-03-21 15:00)
DX: I49.5 Sick sinus syndrome (principal); I48.19 Other persistent atrial fibrillation; N17.9 Acute kidney failure, unspecified; I27.20 Pulmonary hypertension, unspecified; S09.90XA Unspecified injury of head, initial encounter; J84.10 Pulmonary fibrosis, unspecified; Z20.822 Contact with and (suspected) exposure to COVID-19; E78.5 Hyperlipidemia, unspecified; E03.9 Hypothyroidism, unspecified; I44.0 Atrioventricular block, first degree; I49.1 Atrial premature depolarization; I10 Essential (primary) hypertension; G47.33 Obstructive sleep apnea (adult) (pediatric); D72.829 Elevated white blood cell count, unspecified; F43.9 Reaction to severe stress, unspecified; K90.0 Celiac disease; K57.90 Diverticulosis of intestine, part unspecified, without perforation or abscess without bleeding; L40.9 Psoriasis, unspecified; L43.9 Lichen planus, unspecified; J32.9 Chronic sinusitis, unspecified; E66.9 Obesity, unspecified; Z68.37 Body mass index [BMI] 37.0-37.9, adult; Z79.01 Long term (current) use of anticoagulants; Z79.890 Hormone replacement therapy; Z79.899 Other long term (current) drug therapy; Z98.42 Cataract extraction status, left eye; Z98.41 Cataract extraction status, right eye; Z87.39 Personal history of other diseases of the musculoskeletal system and connective tissue; Z86.19 Personal history of other infectious and parasitic diseases; Z87.891 Personal history of nicotine dependence; Z60.2 Problems related to living alone; Z98.890 Other specified postprocedural states; W19.XXXA Unspecified fall, initial encounter; Z88.2 Allergy status to sulfonamides; Z88.1 Allergy status to other antibiotic agents; Z91.013 Allergy to seafood; Z80.41 Family history of malignant neoplasm of ovary
CPT/HCPCS: 33208; 36415; 70450; 71045; 71260; 80048; 80053; 80061; 81001; 83605; 83735; 83880; 84443; 84484; 85025; 85027; 85610; 85730; 87635; 93005; 93306; 94660; 94760; 96361; 96374; 99285

== ENCOUNTER 2021-04-29 15:23 | Emergency (ER) | payer MEDICARE ==
[2021-04-29 15:30] VITALS: BP 182/78; PULSE 83; RESP 18; TEMP 97.6
[2021-04-29] MEDS ORDERED: DIPH,PERTUS(ACELL)TETVAC-LF 0.5 ML VIAL IM ONE (15:56)
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
--- NOTE | 2021-04-29 16:19 | XR ---
EXAMINATION TYPE: XR chest 1V portable DATE OF EXAM: 04/29/2021 CLINICAL HISTORY: fall. TECHNIQUE: Portable frontal view of the chest. COMPARISON: 03/21/2021 FINDINGS: Left-sided pacemaker. Cardiomegaly. Prominence of the central pulmonary vasculature. Incre ased density of the lung bases related to overlapping soft tissues. There is no focal air space opaci ty. No pleural effusion. No pneumothorax seen. No acute displaced osseous fracture. IMPRESSION: Cardiomegaly.
--- NOTE | 2021-04-29 16:28 | CT ---
EXAMINATION TYPE: CT facial bones wo con DATE OF EXAM: 04/29/2021 COMPARISON: None HISTORY: Fall today with laceration to upper lip. Facial pain CT DLP: 1256.6 mGycm Automated exposure control for dose reduction was used. TECHNIQUE: CT scan of the sinuses is performed without contrast, axial images are obtained, coronal r eformatted images are also reviewed. FINDINGS: The ostiomeatal complex is patent bilaterally on the coronal images. Osseous structures are intact. Intracranial structures demonstrate degenerative changes. Small osteoma within the medial et hmoid air cells. Visualized portion of mastoid air cells show no abnormal opacification. The globes are intact bilate rally. Dental artifact noted which limits the exam. There is changes of chronic sinusitis. IMPRESSION: 1. Chronic sinusitis.
--- NOTE | 2021-04-29 16:35 | XR ---
EXAMINATION TYPE: XR pelvis AP view DATE OF EXAM: 04/29/2021 COMPARISON: NONE HISTORY: Pain The osseous structures are intact and the joint spaces are preserved. No acute fracture is seen. Vi sualized bowel gas pattern is nonspecific. Calcifications in pelvis likely vascular. There is modera te narrowing of the hip joints bilaterally. Degenerative change lower lumbar spine. Surgical clips in the right upper quadrant. IMPRESSION: 1. No acute fracture.
[2021-04-29 16:37] LABS: Basophils # (A) 0.1 k/uL (0-0.2); Basophils % (A) 1 %; Eosinophils # (A) 0.1 k/uL (0-0.7); Eosinophils % (A) 1 %; HGB 13.2 gm/dL (11.4-16.0); Lymphocytes # (A) 1.1 k/uL (1.0-4.8); Lymphocytes % (A) 11 %; MCH 28.5 pg (25.0-35.0); MCHC 32.2 g/dL (31.0-37.0); MCV 88.4 fL (80.0-100.0); Mean Platelet Volume 6.9; Monocytes # (A) 0.5 k/uL (0-1.0); Monocytes % (A) 5 %; Neutrophils # (A) 8.2 k/uL (1.3-7.7); Neutrophils % (A) 80 %; Platelet Count 184 k/uL (150-450); RBC 4.63 m/uL (3.80-5.40); RDW 14.1 % (11.5-15.5); WBC 10.2 k/uL (3.8-10.6)
--- NOTE | 2021-04-29 16:39 | CT ---
EXAMINATION TYPE: CT brain saudine wo con DATE OF EXAM: 04/29/2021 COMPARISON: 03/18/2021 HISTORY: Fall today with laceration to upper lip. Facial pain CT DLP: 1256.6 mGycm Automated exposure control for dose reduction was used. TECHNIQUE: CT scan of the head and cervical spine are performed without contrast. FINDINGS: Dental artifact limits the exam and there are changes of chronic sinusitis. Orbits are sy mmetric. There is moderate generalized degenerative change. Low-attenuation the white matter is nonsp ecific. No acute hemorrhage or mass effect. Calvarium intact. Craniocervical junction maintained. The re is a partially empty sella turcica. Assessment spinal canal is nondiagnostic due to artifact and resolution. There is multilevel hypertro phic and degenerative changes throughout the cervical spine with multilevel uncovertebral joint hyper trophy and facet arthropathy. Odontoid intact. Curvature of the spine noted. Suggestion of cardiac le ads. Atherosclerotic change of the aorta. Biapical pleural thickening and findings suggestive of COPD and probable chronic interstitial lung disease. IMPRESSION: 1. There is no acute fracture or dislocation evident in the cervical spine. Multilevel degenerative d isc disease and hypertrophic changes with facet arthropathy. Recommend follow-up MRI to assess for ca nal stenosis particularly at levels C4-5 and C5-C6. 2. No acute intracranial hemorrhage, mass effect, or midline shift is seen. Degenerative and nonspeci fic white matter changes most typical of remote ischemia.
[2021-04-29 16:41] LABS: Calcium 9.2 mg/dL (8.4-10.2)
[2021-04-29 16:42] LABS: Partial Thromboplastin Time 24.3 sec (22.0-30.0); Prothrombin Time 10.9 sec (9.0-12.0)
[2021-04-29] MEDS ORDERED: LIDOCAINE 1%-EPI 1:100,000 20 ML VIAL SQ STA (16:43)
== END 2021-04-29 18:28 | disposition home or self-care (01) ==
LOC: EC 15:23
DX: S01.511A Laceration without foreign body of lip, initial encounter (principal); I10 Essential (primary) hypertension; I48.91 Unspecified atrial fibrillation; Z79.01 Long term (current) use of anticoagulants; Z79.890 Hormone replacement therapy; Z79.899 Other long term (current) drug therapy; Z87.891 Personal history of nicotine dependence; Z88.1 Allergy status to other antibiotic agents; Z88.2 Allergy status to sulfonamides; Z95.0 Presence of cardiac pacemaker; Z23 Encounter for immunization; W10.9XXA Fall (on) (from) unspecified stairs and steps, initial encounter; Y92.511 Restaurant or cafe as the place of occurrence of the external cause
CPT/HCPCS: 12011; 36415; 70450; 70486; 71045; 72125; 72170; 80048; 85025; 85610; 85730; 90471; 90715; 93005; 99284

== ENCOUNTER → 2021-05-03 | Day surgery (SDC) | payer MEDICARE ==
[2021-05-02 09:13] VITALS: BMI 37.3
[~2021-05-03] MED LIST changes: -DEXAMETHASONE SOD PHOSPHATE 4 MG/ML 1 ML VIAL IV ONE; +IOPAMIDOL-300 50ML BTL INJ ONE; -LIDOCAINE 1% (10MG/ML) FOR IV START INTRADERMA PRN; -ONDANSETRON 4 MG/2 ML VIAL IVP ONE
[2021-05-03 06:36] VITALS: BP 167/78; PULSE 62; RESP 16; TEMP 97.1
--- NOTE | 2021-05-03 07:54 | P.EPPROC ---
- EP Procedure Note Electrophysiology Procedure Note: Diagnosis/indication Elevated atrial lead thresholds status post dual-chamber pacemaker implantation 6 weeks back Underlying sick sinus syndrome and atrial fibrillation Cinefluoroscopy of leads RV lead, active fix, mid RV septum, stable position No fractures or breaks of dislodgment Atrial lead, passive, in the right atrial appendage in a very acceptable position Lead with Adequate motion within the appendage In comparison to immediate postoperative cine fluoroscopy, the lead is slightly pulled up on account of the lead settling in recess in the SVC and the innominate junction Left upper extremity venogram 10 mL IV dye injected into the left arm Patent subclavian axillary venous system Device was interrogated [employer] CAROLYN XT DR Atrial lead impedance 551 ohms, P waves 2.1 mV Pacing threshold 1.75 V at 1.5 ms RV pacing impedance 532 ohms Pacing threshold 0.9 V at 0.4 ms R waves 10.6 mV Dual-chamber pacemaker reprogrammed Atrial pacing reprogrammed at 3 V at 1.5 ms Patient paces the atrium around 85% times that she does of underlying sinus bradycardia Plan Continue current settings No plans for any atrial lead revision at this time
== END ==
LOC: CATHEP 05:57
PROVIDERS: ATTEND Internal Medicine Clinical Cardiac Electrophysiology
DX: I49.5 Sick sinus syndrome (principal); I48.91 Unspecified atrial fibrillation; E78.5 Hyperlipidemia, unspecified; F17.210 Nicotine dependence, cigarettes, uncomplicated; I10 Essential (primary) hypertension; Z79.01 Long term (current) use of anticoagulants; Z79.890 Hormone replacement therapy
CPT/HCPCS: 36005; 75820; Q9967

== ENCOUNTER → 2021-11-15 | Outpatient (CLI) | payer MEDICARE ==
[2021-11-15 15:08] LABS: ALT 14 U/L (8-44); AST 20 U/L (13-35); African American GFR (CKD) 72.4 (60.0-200.0); Albumin/Globulin Ratio 1.39 (1.60-3.17); Alkaline Phosphatase 81 U/L (41-126); BUN/Creat Ratio 23.42 Ratio (12.00-20.00); Blood Urea Nitrogen 21.1 mg/dL (9.0-27.0); Calcium 9.4 mg/dL (8.7-10.3); Carbon Dioxide 25.4 mmol/L (20.0-27.5); Chloride 106 mmol/L (96-109); Chol/HDL Ratio 2.27 Ratio; Globulin 2.9 g/dL (1.6-3.3); Glucose 105 mg/dL (70-110); LDL Cholesterol,Calculated 44.5 mg/dL (0.0-131.0); Non-African American GFR(CKD) 62.5 (60.0-200.0); Potassium 4.6 mmol/L (3.5-5.5); Sodium 142 mmol/L (135-145); Total Protein 6.9 g/dL (6.2-8.2)
== END | disposition home or self-care (01) ==
LOC: LABWHC1 09:31
PROVIDERS: ATTEND Internal Medicine Interventional Cardiology
DX: E78.2 Mixed hyperlipidemia (principal)
CPT/HCPCS: 36415; 80053; 80061

== ENCOUNTER → 2022-01-24 | Outpatient (CLI) | payer MEDICARE ==
[2022-01-24 20:49] LABS: African American GFR (CKD) 63.8 (60.0-200.0); Albumin 4.1 g/dL (3.8-4.9); Albumin/Globulin Ratio 1.71 (1.60-3.17); Anion Gap 10.7 mmol/L (10.00-18.00); BUN/Creat Ratio 15.2 Ratio (12.00-20.00); Blood Urea Nitrogen 15.2 mg/dL (9.0-27.0); Calcium 9.4 mg/dL (8.7-10.3); Carbon Dioxide 25.3 mmol/L (20.0-27.5); Globulin 2.4 g/dL (1.6-3.3); Non-African American GFR(CKD) 55.1 (60.0-200.0); Potassium 4.8 mmol/L (3.5-5.5); Total Bilirubin 0.7 mg/dL (0.30-1.20); Total Protein 6.5 g/dL (6.2-8.2)
== END | disposition home or self-care (01) ==
LOC: LABWHC1 10:59
PROVIDERS: ATTEND Nurse Practitioner Adult Health
DX: I48.11 Longstanding persistent atrial fibrillation (principal)
CPT/HCPCS: 36415; 80053

== ENCOUNTER → 2022-03-30 | Outpatient (CLI) | payer MEDICARE ==
--- NOTE | 2022-03-31 07:11 | US ---
EXAMINATION TYPE: US kidneys/renal and bladder DATE OF EXAM: 03/30/2022 COMPARISON: NONE CLINICAL HISTORY: R94.4 ABNORMAL RESULTS OF KIDNEY FUNCTION STUDIES. abnormal function test. EXAM MEASUREMENTS: Right Kidney: 15.9 x 6.6 x 4.6 cm Left Kidney: 11 x 5.3 x 4.6 cm Right Kidney: Cystic area upper pole seen 12.8 x 10.3 x 9.3 cm. Left Kidney: 5.1 x 4.3 x 5.2 cm Bladder: anechoic Bilateral Jets seen: no There is no evidence for hydronephrosis at this point in time. No nephrolithiasis is seen. The urina ry bladder is anechoic. IMPRESSION: Cyst upper pole right kidney
== END | disposition home or self-care (01) ==
LOC: RADUSWWP 15:56
PROVIDERS: ATTEND Internal Medicine
DX: N28.1 Cyst of kidney, acquired (principal); R94.4 Abnormal results of kidney function studies
CPT/HCPCS: 76770

== ENCOUNTER → 2022-04-19 | Outpatient (CLI) | payer MEDICARE ==
[2022-04-19 14:27] LABS: ALT 12 U/L (8-44); AST 17 U/L (13-35); African American GFR (CKD) 70.5 (60.0-200.0); Alkaline Phosphatase 63 U/L (41-126); Blood Urea Nitrogen 19.6 mg/dL (9.0-27.0); Calcium 9.2 mg/dL (8.7-10.3); Chloride 108 mmol/L (96-109); Chol/HDL Ratio 2.29 Ratio; Globulin 2.8 g/dL (1.6-3.3); Glucose 100 mg/dL (70-110); Non-African American GFR(CKD) 60.8 (60.0-200.0); Sodium 142 mmol/L (135-145); Total Protein 6.8 g/dL (6.2-8.2); VLDL Calculation 17.24 mg/dL (5.00-40.00)
== END | disposition home or self-care (01) ==
LOC: LABWHC1 09:13
PROVIDERS: ATTEND Internal Medicine Interventional Cardiology
DX: E78.2 Mixed hyperlipidemia (principal)
CPT/HCPCS: 36415; 80053; 80061

== ENCOUNTER → 2022-05-04 | Outpatient (CLI) | payer MEDICARE ==
[2022-05-04 14:31] LABS: T4, Free (Free Thyroxine) 1.79 ng/dL (0.800-1.800)
== END | disposition home or self-care (01) ==
LOC: LABWHC1 10:08
PROVIDERS: ATTEND Internal Medicine
DX: E89.0 Postprocedural hypothyroidism (principal)
CPT/HCPCS: 36415; 84439; 84443

== ENCOUNTER → 2022-06-20 | Outpatient (CLI) | payer MEDICARE ==
--- NOTE | 2022-06-23 08:24 | XR ---
EXAMINATION TYPE: XR shoulder complete LT DATE OF EXAM: 06/21/2022 CLINICAL HISTORY: pain COMPARISON: NONE TECHNIQUE: Three views of the left shoulder are obtained. FINDINGS: There is no acute fracture/dislocation evident. The acromioclavicular and glenohumeral tg int spaces appear within normal limits. The visualized ribs are intact and unremarkable. IMPRESSION: 1. There is no acute fracture or dislocation. ICD 10 NO FRACTURE, INITIAL EVALUATION
--- NOTE | 2022-06-23 09:29 | XR ---
EXAMINATION TYPE: XR cervical spine w flex/ext DATE OF EXAM: 06/21/2022 TECHNIQUE: Frontal, lateral, flexion and extension lateral, oblique, and open mouth view of the cervi lucille spine are obtained. HISTORY: ACUTE PAIN UPPER LEFT SHOULDER COMPARISON: None FINDINGS: The cervical spine is visualized in its entirety from C1 thru the top of T1 level, it is s atisfactory in alignment without evidence of acute fracture or dislocation. The pre-vertebral soft t issue appears within normal limits. The C1-C2 articulation is within normal limits on the open mouth view. [id number] posterior narrowing and spurring seen at C4-C5 level. Vertebral body heights and disc space heights otherwise are maintained. Dynamic imaging shows limited extension without foca l subluxation or increased disc space narrowing at any level. The oblique images show neural foramina l narrowing on the left at C3-C4 level due to marginal spurring. Partial visualization of overlying p acemaker wires noted. IMPRESSION: As above.
== END | disposition home or self-care (01) ==
LOC: RADXRMAIN 14:13
PROVIDERS: ATTEND Internal Medicine
DX: M50.821 Other cervical disc disorders at C4-C5 level (principal); M99.71 Connective tissue and disc stenosis of intervertebral foramina of cervical region; M25.512 Pain in left shoulder
CPT/HCPCS: 72052

== ENCOUNTER → 2022-10-30 | Outpatient (CLI) | payer MEDICARE ==
[2022-10-30 18:04] LABS: ALT 12 U/L (8-44); AST 13 U/L (13-35); African American GFR (CKD) 38.8 (60.0-200.0); Albumin 3.7 g/dL (3.8-4.9); Albumin/Globulin Ratio 1.76 (1.60-3.17); Alkaline Phosphatase 56 U/L (41-126); BUN/Creat Ratio 16.53 Ratio (12.00-20.00); Blood Urea Nitrogen 24.8 mg/dL (9.0-27.0); Calcium 8.8 mg/dL (8.7-10.3); Carbon Dioxide 27.8 mmol/L (20.0-27.5); Chloride 103 mmol/L (96-109); Chol/HDL Ratio 2.28 Ratio; Globulin 2.1 g/dL (1.6-3.3); Glucose 103 mg/dL (70-110); LDL Cholesterol,Calculated 35.3 mg/dL (0.0-131.0); Non-African American GFR(CKD) 33.5 (60.0-200.0); Potassium 3.9 mmol/L (3.5-5.5); Sodium 142 mmol/L (135-145); Total Protein 5.8 g/dL (6.2-8.2)
== END | disposition home or self-care (01) ==
LOC: LABWHC1 10:42
PROVIDERS: ATTEND Internal Medicine Interventional Cardiology
DX: E78.2 Mixed hyperlipidemia (principal); E89.0 Postprocedural hypothyroidism; R60.0 Localized edema
CPT/HCPCS: 36415; 80053; 80061; 83880; 84439; 84443

== ENCOUNTER → 2023-01-16 | Outpatient (CLI) | payer MEDICARE ==
[2023-01-16 19:43] LABS: Basophils # (A) 0.07 X 10*3/uL (0.00-0.10); Basophils % (A) 0.7 %; Eosinophils # (A) 0.17 X 10*3/uL (0.04-0.35); Eosinophils % (A) 1.7 %; HCT 36.3 % (37.2-46.3); HGB 11.6 g/dL (12.0-15.0); Immature Grans, Automated 0.6 %; Lymphocytes # (A) 1.84 X 10*3/uL (0.90-5.00); Lymphocytes % (A) 18.5 %; MCH 28.6 pg (27.0-32.0); MCV 89.4 fL (80.0-97.0); Mean Platelet Volume 9.8 fL (9.5-12.2); Monocytes # (A) 1.02 X 10*3/uL (0.20-1.00); Monocytes % (A) 10.3 %; NRBC Per 100 WBC 0 /100 WBCS (0.0-0.0); Neutrophils # (A) 6.77 X 10*3/uL (1.80-7.70); Neutrophils % (A) 68.2 %; Platelet Count 279 X 10*3/uL (140-440); RBC 4.06 X 10*6/uL (4.10-5.20); RDW 13.8 % (11.5-14.5); WBC 9.93 X 10*3/uL (4.50-10.00)
[2023-01-16 19:55] LABS: C Reactive Protein 1.4 mg/dL (0.00-0.80)
[2023-01-16 20:00] LABS: Erythrocyte Sedimentation Rate 51 mm/Hr (0-30)
[2023-01-16 23:01] LABS: African American GFR (CKD) 52.4 (60.0-200.0); Blood Urea Nitrogen 27.9 mg/dL (9.0-27.0); Non-African American GFR(CKD) 45.2 (60.0-200.0)
== END | disposition home or self-care (01) ==
LOC: LABWHC1 12:33
PROVIDERS: ATTEND Internal Medicine Rheumatology
DX: M35.3 Polymyalgia rheumatica (principal); M25.511 Pain in right shoulder; G89.29 Other chronic pain; M25.512 Pain in left shoulder
CPT/HCPCS: 36415; 82550; 82565; 84443; 84450; 84460; 84520; 85025; 85652; 86140

== ENCOUNTER → 2023-02-26 | Outpatient (CLI) | payer MEDICARE ==
[2023-02-26 16:03] LABS: ALT 31 U/L (8-44); AST 17 U/L (13-35); African American GFR (CKD) 50.8 (60.0-200.0); Blood Urea Nitrogen 23.9 mg/dL (9.0-27.0); Carbon Dioxide 28.4 mmol/L (20.0-27.5); Chloride 106 mmol/L (96-109); Non-African American GFR(CKD) 43.9 (60.0-200.0); Potassium 4.2 mmol/L (3.5-5.5); Sodium 144 mmol/L (135-145)
[2023-02-26 16:14] LABS: C Reactive Protein <0.30 mg/dL (0.00-0.80); Creatine Kinase 26 U/L (26-186); Rheumatoid Factor, Qnt <10 IU/mL (0-15)
[2023-02-26 16:56] LABS: Basophils # (A) 0.07 X 10*3/uL (0.00-0.10); Basophils % (A) 0.6 %; Eosinophils # (A) 0.14 X 10*3/uL (0.04-0.35); Eosinophils % (A) 1.3 %; HCT 41.1 % (37.2-46.3); HGB 12.8 g/dL (12.0-15.0); Immature Grans, Automated 1.1 %; Lymphocytes % (A) 21.5 %; MCH 29.5 pg (27.0-32.0); MCHC 31.1 g/dL (32.0-37.0); MCV 94.7 fL (80.0-97.0); Mean Platelet Volume 9.8 fL (9.5-12.2); Monocytes # (A) 1.03 X 10*3/uL (0.20-1.00); Monocytes % (A) 9.2 %; NRBC Per 100 WBC 0 /100 WBCS (0.0-0.0); Neutrophils # (A) 7.41 X 10*3/uL (1.80-7.70); Neutrophils % (A) 66.3 %; Platelet Count 250 X 10*3/uL (140-440); RBC 4.34 X 10*6/uL (4.10-5.20); RDW 15.7 % (11.5-14.5); WBC 11.17 X 10*3/uL (4.50-10.00)
[2023-02-26 17:05] LABS: Erythrocyte Sedimentation Rate 3 mm/Hr (0-30)
[2023-02-26 19:43] LABS: Cyclic Citrull Pep IgG Unit <1.5 U/mL; Cyclic Citrullinated Pep IgG NEGATIVE (NEGATIVE)
== END | disposition home or self-care (01) ==
LOC: LABWHC1 10:21
PROVIDERS: ATTEND Internal Medicine
DX: E89.0 Postprocedural hypothyroidism (principal); M25.50 Pain in unspecified joint
CPT/HCPCS: 36415; 80051; 82085; 82550; 82565; 83874; 84439; 84443; 84450; 84460; 84520; 85025; 85652; 86140; 86200; 86431

== ENCOUNTER → 2023-03-15 | Outpatient (CLI) | payer MEDICARE ==
[2023-03-15 16:11] LABS: ALT 29 U/L (8-44); AST 16 U/L (13-35); African American GFR (CKD) 64.9 (60.0-200.0); Albumin 3.8 g/dL (3.8-4.9); Albumin/Globulin Ratio 1.95 (1.60-3.17); Alkaline Phosphatase 43 U/L (41-126); Blood Urea Nitrogen 20.9 mg/dL (9.0-27.0); Calcium 9.2 mg/dL (8.7-10.3); Carbon Dioxide 26.2 mmol/L (20.0-27.5); Chloride 108 mmol/L (96-109); Chol/HDL Ratio 2.02 Ratio; Glucose 90 mg/dL (70-110); LDL Cholesterol,Calculated 36.4 mg/dL (0.0-131.0); Sodium 143 mmol/L (135-145); Total Protein 5.8 g/dL (6.2-8.2)
== END | disposition home or self-care (01) ==
LOC: LABWHC1 09:24
PROVIDERS: ATTEND Nurse Practitioner Adult Health
DX: I10 Essential (primary) hypertension (principal); E78.2 Mixed hyperlipidemia; M35.3 Polymyalgia rheumatica; M25.511 Pain in right shoulder; M25.512 Pain in left shoulder; G89.29 Other chronic pain; M25.50 Pain in unspecified joint; M06.4 Inflammatory polyarthropathy; Z79.01 Long term (current) use of anticoagulants
CPT/HCPCS: 36415; 80053; 80061

== ENCOUNTER → 2023-03-28 | Day surgery (SDC) | payer MEDICARE ==
[2023-03-26 10:35] VITALS: BMI 36.6
[~2023-03-28] MED LIST changes: +APIXABAN 5 MG TAB PO SCH; +ATORVASTATIN 20 MG TAB PO SCH; +DRONEDARONE 400 MG TAB PO SCH; -IOPAMIDOL-300 50ML BTL INJ ONE; +LACTATED RINGERS 1,000 ML IV ONE; +LIDOCAINE 2% INJ 20 MG/ML (2 ML VIAL) ONE; +LOSARTAN 50 MG TAB PO SCH; +METOPROLOL TARTRATE 25 MG TAB PO SCH; +NON FORMULARY DRUG (Levothyroxine Sodium [Synthroid] 150 MCG Tablet) PO SCH; +PROPOFOL 10 MG/ML 20 ML VIAL IV ONE; +SPIRONOLACTONE 25 MG TAB PO SCH; +predniSONE 5 MG TAB PO SCH
[2023-03-28 07:23] LABS: Glucose,Whole Blood 88 mg/dL (70-110)
[2023-03-28 07:28] VITALS: RESP 16
[2023-03-28 07:58] VITALS: TEMP 97
--- NOTE | 2023-03-28 07:59 | P.PCN ---
Date of Procedure: 03/28/23 Description of Procedure: Indication: Atrial fibrillation Procedure Description: After explaining the procedure to the patient, it's risk and complications, blood pressure, heart rate and O2 saturation were monitored. The throat was sprayed with Cetacaine. Patient received sedation per anesthesia department. The probe was introduced into the esophagus without difficulty. Images were obtained. Following that, the probe was removed. There was no immediate complication. Findings: Left atrial size is dilated, left atrial appendage is normal. Left ventricle size and systolic function are normal. Mild mitral anulus calcification was noted. The aortic valve revealed mild fibrocalcific changes with preserved opening. Tricuspid valve is normal. Descending thoracic aorta appears to be normal. No pericardial effusion was noted. Contrast bubble study revealed mild shunting across the intra-atrial septum. Doppler: Pulse wave and color Doppler were obtained, revealed moderate mitral with mild aortic and tricuspid regurgitation. There was [id number] shunting through ASD. Conclusion: 1. Mildly dilated left atrium with normal appearance of the left atrial appendage 2. Normal ventricle size and systolic function 3. Moderate mitral with mild aortic and tricuspid regurgitation 4. ASD with bidirectional shunt with contrast bubble study 5. No pericardial effusion Cardioversion: After obtaining sedated state and performing transesophageal echocardiogram a synchronized biphasic cardioversion using 150 J is performed with voodoo of sinus mechanism. There was no immediate complications.
[2023-03-28 09:02] VITALS: BP 107/75; PULSE 50
== END | disposition home or self-care (01) ==
LOC: OR 06:21
PROVIDERS: ATTEND Internal Medicine Interventional Cardiology
DX: I48.11 Longstanding persistent atrial fibrillation (principal); I08.3 Combined rheumatic disorders of mitral, aortic and tricuspid valves; I48.91 Unspecified atrial fibrillation; Q21.10 Atrial septal defect, unspecified; I10 Essential (primary) hypertension; E78.5 Hyperlipidemia, unspecified; G47.33 Obstructive sleep apnea (adult) (pediatric); K21.9 Gastro-esophageal reflux disease without esophagitis; Z79.01 Long term (current) use of anticoagulants; Z79.52 Long term (current) use of systemic steroids; Z79.899 Other long term (current) drug therapy; Z95.0 Presence of cardiac pacemaker; Z88.1 Allergy status to other antibiotic agents; Z88.2 Allergy status to sulfonamides
CPT/HCPCS: 93312; 93320; 93325; 92960; J2704; J2001

== ENCOUNTER 2023-05-16 22:50 | Observation (INO) | payer MEDICARE ==
[2023-05-16 23:58] LABS: Basophils # (A) 0.1 k/uL (0-0.2); Basophils % (A) 0 %; Eosinophils # (A) 0.1 k/uL (0-0.7); Eosinophils % (A) 1 %; HCT 42.6 % (34.0-46.0); HGB 14.3 gm/dL (11.4-16.0); Lymphocytes # (A) 2.4 k/uL (1.0-4.8); Lymphocytes % (A) 13 %; MCH 31.1 pg (25.0-35.0); MCHC 33.6 g/dL (31.0-37.0); MCV 92.6 fL (80.0-100.0); Mean Platelet Volume 7.1; Monocytes % (A) 6 %; Neutrophils % (A) 80 %; Platelet Count 253 k/uL (150-450); WBC 18.7 k/uL (3.8-10.6)
[2023-05-17 00:10] LABS: ALT 28 U/L (4-34); AST 26 U/L (14-36); African American GFR (CKD) 60 (>60 ml/min/1.73 sqM); Albumin 3.9 g/dL (3.5-5.0); Alkaline Phosphatase 55 U/L (38-126); Anion Gap 6 mmol/L; Blood Urea Nitrogen 27 mg/dL (7-17); Calcium 9.2 mg/dL (8.4-10.2); Carbon Dioxide 29 mmol/L (22-30); Chloride 105 mmol/L (98-107); Glucose 102 mg/dL (74-99); Non-African American GFR(CKD) 52 (>60 ml/min/1.73 sqM); Sodium 140 mmol/L (137-145); Total Bilirubin 0.5 mg/dL (0.2-1.3); Total Protein 6.8 g/dL (6.3-8.2)
[2023-05-17 00:12] LABS: Partial Thromboplastin Time 22.6 sec (22.0-30.0); Prothrombin Time 10.5 sec (9.0-12.0)
--- NOTE | 2023-05-17 01:41 | XR ---
EXAM: XR Chest, 2 Views CLINICAL HISTORY: ITS.REASON XR Reason: Chest Pain TECHNIQUE: Frontal and lateral views of the chest. COMPARISON: No relevant prior studies available. IMPRESSION: Cardiomegaly. Mild vascular congestion
[2023-05-17] MEDS ORDERED: MORPHINE SULFATE 4 MG/ML SYRINGE IVP STA (03:33)
[2023-05-17] MEDS ORDERED: METOPROLOL TARTRATE 5 MG/5 ML VIAL IVP STA (03:33)
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
[2023-05-17] MEDS ORDERED: NALOXONE 0.4 MG/ML 1 ML VIAL IV PRN (03:41)
[2023-05-17] MEDS ORDERED: MORPHINE SULFATE 4 MG/ML SYRINGE IV PRN (03:41)
[2023-05-17] MEDS ORDERED: BUMETANIDE 0.25 MG/ML 4 ML VIAL IVP ONE (04:00)
[2023-05-17 04:01] LABS: Appearance,Urine Clear (Clear); Bilirubin,Urine Negative (Negative); Blood,Urine Small (Negative); Color,Urine Yellow; Glucose,Urine (UA) Negative (Negative); Ketones,Urine Negative (Negative); Leukocyte Esterase,Urine Small (Negative); Mucus,Urine Rare /hpf; Nitrite,Urine Negative (Negative); Protein,Urine Trace (Negative); RBC,Urine 4 /hpf (0-5); Specific Gravity,Urine 1.025 (1.001-1.035); Squamous Epithelial Cell,Urine <1 /hpf (0-4); Urobilinogen,Urine <2.0 mg/dL (<2.0); WBC,Urine 2 /hpf (0-5)
[2023-05-17] MEDS: SPIRONOLACTONE 25 MG TAB PO SCH (08:45)
[2023-05-17] MEDS: APIXABAN 5 MG TAB PO SCH ×2 (08:45→19:43)
[2023-05-17] MEDS: LOSARTAN 50 MG TAB PO SCH (08:45)
[2023-05-17] MEDS ORDERED: METOPROLOL TARTRATE 50 MG TAB PO SCH (09:00)
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
[2023-05-17] MEDS ORDERED: METOPROLOL TARTRATE 50 MG TAB PO STA (16:44)
[2023-05-17] MEDS ORDERED: BUMETANIDE 1 MG TAB PO PRN (18:22)
[2023-05-17] MEDS: predniSONE 2.5 MG TAB PO SCH (19:43)
[2023-05-17] MEDS: METOPROLOL TARTRATE 50 MG TAB PO SCH (19:44)
[2023-05-17] MEDS: ACETAMINOPHEN TAB 500 MG TAB PO PRN (19:47)
[2023-05-17] MEDS ORDERED: ATORVASTATIN 20 MG TAB PO SCH (21:00)
[2023-05-17] MEDS: DORZOLAMIDE-TIMOLOL 2.23%/0.68 10ML BTL BOTH EYES SCH (21:03)
[2023-05-18] MEDS ORDERED: LEVOTHYROXINE 75 MCG TAB PO SCH (06:30)
[2023-05-18 08:15] VITALS: BP 113/58; PULSE 91; RESP 22; TEMP 98.5
[2023-05-18] MEDS: SPIRONOLACTONE 25 MG TAB PO SCH (08:25)
[2023-05-18] MEDS: APIXABAN 5 MG TAB PO SCH (08:25)
[2023-05-18] MEDS: METOPROLOL TARTRATE 50 MG TAB PO SCH (08:25)
[2023-05-18] MEDS: LOSARTAN 50 MG TAB PO SCH (08:26)
[2023-05-18] MEDS: DORZOLAMIDE-TIMOLOL 2.23%/0.68 10ML BTL BOTH EYES SCH (08:26)
[2023-05-18] MEDS: predniSONE 2.5 MG TAB PO SCH (08:27)
[2023-05-18] MEDS: ACETAMINOPHEN TAB 500 MG TAB PO PRN (08:57)
[2023-05-18] MEDS ORDERED: CHOLECALCIFEROL 25 MCG (1000 IU) TABLET PO SCH (09:00)
[2023-05-18] MEDS ORDERED: LACTOBACILLUS ACIDOPHILUS/PECT 1 EACH CAPSULE PO SCH (09:00)
[2023-05-18] MEDS ORDERED: CYANOCOBALAMIN 500 MCG TAB PO SCH (09:00)
[2023-05-18] MEDS ORDERED: CALCIUM CARB-VIT D 500 MG-5 MCG TAB PO SCH (09:00)
[2023-05-18 09:18] LABS: Basophils # (A) 0.03 X 10*3/uL (0.00-0.10); Basophils % (A) 0.2 %; Eosinophils # (A) 0.01 X 10*3/uL (0.04-0.35); Eosinophils % (A) 0.1 %; HCT 43.8 % (37.2-46.3); HGB 14.3 d/dL (12.0-15.0); Lymphocytes # (A) 1.63 X 10*3/uL (0.90-5.00); Lymphocytes % (A) 10.9 %; MCHC 32.6 d/dL (32.0-37.0); Mean Platelet Volume 9.5 FL (9.5-12.2); Monocytes # (A) 1.49 X 10*3/uL (0.20-1.00); Monocytes % (A) 9.9 %; NRBC Per 100 WBC 0 X 10*3/uL (0.00-0.01); Neutrophils # (A) 11.72 X 10*3/uL (1.80-7.70); Neutrophils % (A) 78.1 %; Platelet Count 262 X 10*3/uL (140-440); RBC 4.76 X 10*6/uL (4.10-5.20); RDW 14.3 % (11.5-14.5)
[2023-05-18 09:20] LABS: ALT 20 U/L (8-44); AST 16 U/L (13-35); Albumin 4.1 d/dL (3.8-4.9); Albumin/Globulin Ratio 1.52 Ratio (1.60-3.17); Alkaline Phosphatase 57 U/L (41-126); BUN/Creat Ratio 26.64 Ratio (12.00-20.00); Blood Urea Nitrogen 29.3 mg/dL (9.0-27.0); Calcium 9.7 mg/dL (8.7-10.3); Carbon Dioxide 27.3 mmol/L (21.6-31.8); Chloride 99 mmol/L (96-109); Globulin 2.7 d/dL (1.6-3.3); Glucose 118 mg/dL (70-110); Potassium 4.3 mmol/L (3.5-5.5); Sodium 139 mmol/L (135-145); Total Bilirubin 1.2 mg/dL (0.3-1.2); Total Protein 6.8 d/dL (6.2-8.2)
--- NOTE | 2023-05-18 10:37 | P.PN ---
Subjective HISTORY OF PRESENT ILLNESS: This is a 78-year-old female with a past medical history significant for persistent atrial fibrillation with previous cardioversion, hyperlipidemia, hypertension, and pacemaker implantation. Patient follows in the office with Dr. Urrutia. We have been asked to see the patient in consultation for chest pain. Patient examined at the bedside in the emergency room. Patient presented to the hospital with a chief complaint of chest pain. She states the pain started yesterday. She states the pain was in her upper chest and radiated into her back. She states the pain is worse with deep inspiration. She reports having mild shortness of breath when she arrived in the emergency room. She received a dose of IV Bumex. She states her shortness of breath has since resolved. She denies feeling dizzy or lightheaded. She denies having any palpitations. The patient had a recent cardioversion on 03/28/2023 with gnosticism to sinus mechanism. However at her follow-up visit on 04/11/2023 she was found to be in atrial fibrillation again. She remains in atrial fibrillation at the time of examination with a heart rate around 115. The patient states that she has an appointment scheduled on 07/19/2023 at the [facility] for evaluation for possible ablation. * EKG reveals atrial fibrillation with mild RVR. No signs of acute ischemia * Chest xray cardiomegaly. Mild vascular congestion. * Laboratory data: WBC 18.7. Hemoglobin 14.3. Platelet count 253. Sodium 140. Potassium 4.0. B UN 27. Creatinine 1.04. Magnesium 2.0. Troponin negative 3. ProBNP 2410. * Current home cardiac medications include Bumex 0.51 mg daily as needed, Lipitor 20 mg at night, Cozaar 50 mg daily, spironolactone 25 mg daily, metoprolol tartrate 50 mg 3 times a day, and Eliquis 5mg BID * Patient underwent MICHAEL on 03/28/2023 revealing normal ejection fraction, mild TR, PFO, moderate MR, mild AR * Most recent echocardiogram obtained in March 2023 revealed ejection fraction 52%, moderate MR, moderate TR * Cardiac catheterization history: November 2020 revealing normal coronary arteries 05/18/2023 Patient examined this morning. She is sitting up in the chair. She denies sh ortness of breath. She currently denies chest pain or pressure. She reports a little bit of discomfort near her left collarbone. Telemetry reveals atrial fibrillation with improved ventricular rates today ranging from [address]. Her beta efren was increased yesterday. PHYSICAL EXAM: VITAL SIGNS: Reviewed. GENERAL: Well-developed in no acute distress. HEENT: Head is normocephalic. Pupils are equal, round. Sclerae anicteric. Mucous membranes of the mouth are moist. Neck supple. No JVD or thyromegaly LUNGS: Respirations even and unlabored. Lungs essentially clear to auscultation bilaterally. HEART: Irregular rate and rhythm. S1 and S2 heard. Systolic murmur noted. ABDOMEN: Soft. Nondistended. Nontender. EXTREMITIES: Normal range of motion. No clubbing or cyanosis. Peripheral pulses intact. No lower extremity edema NEUROLOGIC: Awake and alert. Oriented x 3. ASSESSMENT: Chest pain, atypical, troponin negative 3 Persistent atrial fibrillation with mild RVR History of previous cardioversion, 03/28/2023 Hypertension Hyperlipidemia History of permanent pacemaker implantation Normal coronary arteries, per cardiac catheterization, 2020 PLAN: Patient's beta efren increased to 100 mg twice a day yesterday Continue additional cardiac medications Patient is stable for discharge home today from a cardiac standpoint We will sign off. Please reconsult if needed. Nurse practitioner note has been reviewed by physician. Signing provider agrees with the documented findings, assessment, and plan of care. Objective - Vital Signs Vital signs: Vital Signs Temp 98.5 F 05/18/23 07:00 Pulse 91 05/18/23 08:00 Resp 22 05/18/23 08:00 BP 113/58 05/18/23 07:00 Pulse Ox 93 L 05/18/23 07:00 FiO2 Intake & Output 05/17/23 05/18/23 05/18/23 18:59 06:59 18:59 Intake Total 221 221 Balance 221 221 Weight 99.79 kg Intake: Oral 221 221 Other: Voiding Method Toilet Toilet # Voids 0 1 - Labs CBC & Chem 7: 05/18/23 06:13 05/18/23 06:13 Labs: Abnormal Lab Results - Last 24 Hours (Table) 05/18/23 05/18/23 Range/Units 06:13 06:13 WBC 15.00 H (4.50-10.00) X 10*3/uL Neutrophils # 11.72 H (1.80-7.70) X 10*3/uL Monocytes # 1.49 H (0.20-1.00) X 10*3/uL Eosinophils # 0.01 L (0.04-0.35) X 10*3/uL Anion Gap 12.70 H (4.00-12.00) mmol/L BUN 29.3 H (9.0-27.0) mg/dL Est GFR (CKD-EPI) 52 L (>=60) BUN/Creatinine Ratio 26.64 H (12.00-20.00) Ratio Glucose 118 H (70-110) mg/dL Albumin/Globulin Ratio 1.52 L (1.60-3.17) Ratio
--- NOTE | 2023-05-18 14:27 | P.DS ---
Providers Date of admission: 05/17/23 03:41 Expected date of discharge: 05/18/23 Attending physician: Orin Minaya Consults: 05/17/23 03:41 Consult Physician Urgent Consulting Provider: [facility] Consult Reason/Comments: Pulmonary vascular congestion, A. fib with RVR Do you want consulting provider notified?: Yes Primary care physician: Orin Minaya Hospital Course: HISTORY OF PRESENT ILLNESS: this is a 78-year-old female with a previous medical history significant for hypertension and hypertensive cardiovascular disease, hyperlipidemia, hypothyroidism, paroxysmal atrial fibrillation status post cardiac ablation 02/17/2021 and a recent cardioversion back in 12/04/2020 , history of rheumatoid arthritis, polymyalgia rheumatica,patient presented to the emergency department at [place] with increased chest pain associated with palpitation, patient was found to have an atrial fibrillation, cardiac enzymes are negative, but because of the presentation she was admitted to the hospital for evaluation by cardiology. 05/18: Patient has been seen by cardiology and beta efren increased to 100 mg twice daily. Patient has been seen by cardiology today and has been cleared for discharge. Heart rate is running in the 90-105 continues to be in atrial fibrillation. She denies having any chest pain, lightheadedness, shortness of breath. She has been ambulating in her room. She is planning to return home at discharge. Patient will be discharged today in stable condition. DISCHARGE DIAGNOSES: 1. Atrial fibrillation with rapid ventricular response. 2. chest pain likely related to atrial fibrillation with rapid ventricular response. 3. Hypertension and hypertensive cardiovascular disease. 4. Mixed hyperlipidemia. 5. Hypothyroidism. 6. Psoriasis. 7. Proximal nature for ablation. 8. polymyalgia rheumatica. 9. Glaucoma. Greater than 35 minutes was utilized and coordinating patient's discharge. Impression and plan of care have been directed as dictated by the signing physician. Jesenia Mann nurse practitioner acting as scribe for signing physician. Patient Condition at Discharge: Stable Plan - Discharge Summary New Discharge Prescriptions: New Metoprolol Tartrate [Lopressor] 100 mg PO BID #60 tablet Continue Atorvastatin [Lipitor] 20 mg PO HS Apixaban [Eliquis] 5 mg PO BID Cholecalciferol [Vitamin D3 (25 Mcg = 1000 Iu)] 50 mcg PO DAILY predniSONE 7.5 mg PO DAILY Levothyroxine Sodium [Synthroid] 150 mcg PO DAILY Dorzolamide-Timol 2.23%/0.68% [Cosopt] 1 drop BOTH EYES BID Losartan Potassium [Cozaar] 50 mg PO DAILY Bumetanide [BUMEX] 0.5 - 1 mg PO DAILY PRN PRN Reason: Edema Cyanocobalamin (Vitamin B-12) [Vitamin B-12] 5,000 mcg PO DAILY Kaden/D3/Mag11/Zinc/Technical Applications Scientist/Farhad/Bor [Caltrate 600+D Plus Tablet] 1 tab PO DAILY Spironolactone 25 mg PO DAILY Acetaminophen [Tylenol Extra Strength] 500 mg PO Q6H PRN PRN Reason: Pain L.acidoph,Paracasei, B.lactis [Probiotic] 1 cap PO DAILY Discontinued Metoprolol Tartrate [Lopressor] 50 mg PO TID Discharge Medication List Atorvastatin [Lipitor] 20 mg PO HS 05/25/16 [History] Apixaban [Eliquis] 5 mg PO BID 11/25/20 [History] Cholecalciferol [Vitamin D3 (25 Mcg = 1000 Iu)] 50 mcg PO DAILY 05/02/21 [History] Acetaminophen [Tylenol Extra Strength] 500 mg PO Q6H PRN 03/26/23 [History] Bumetanide [BUMEX] 0.5 - 1 mg PO DAILY PRN 03/26/23 [History] Kaden/D3/Mag11/Zinc/Technical Applications Scientist/Farhad/Bor [Caltrate 600+D Plus Tablet] 1 tab PO DAILY 03/26/23 [History] Cyanocobalamin (Vitamin B-12) [Vitamin B-12] 5,000 mcg PO DAILY 03/26/23 [History] Levothyroxine Sodium [Synthroid] 150 mcg PO DAILY 03/26/23 [History] Spironolactone 25 mg PO DAILY 03/26/23 [History] predniSONE 7.5 mg PO DAILY 03/26/23 [History] Dorzolamide-Timol 2.23%/0.68% [Cosopt] 1 drop BOTH EYES BID 05/17/23 [History] L.acidoph,Paracasei, B.lactis [Probiotic] 1 cap PO DAILY 05/17/23 [History] Losartan Potassium [Cozaar] 50 mg PO DAILY 05/17/23 [History] Metoprolol Tartrate [Lopressor] 100 mg PO BID #60 tablet 05/17/23 [Rx] Follow up Appointment(s)/Referral(s): Yanira Urrutia MD [Family Provider] - 1 Week (as scheduled 05/28 2023 ) Orin Minaya MD [Primary Care Provider] - 1 Week Patient Instructions/Handouts: A-fib (Atrial Fibrillation) (GEN), Chest Pain (GEN), Cardiac Stress Test (GEN) Discharge Disposition: HOME SELF-CARE
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
== END 2023-05-18 15:33 | disposition home or self-care (01) ==
LOC: EC 22:50 → 6NMEDSUR 05-17 03:41
PROVIDERS: ADMIT Internal Medicine; ATTEND Internal Medicine
DX: R07.89 Other chest pain (principal); I48.19 Other persistent atrial fibrillation; G47.30 Sleep apnea, unspecified; K21.9 Gastro-esophageal reflux disease without esophagitis; R09.89 Other specified symptoms and signs involving the circulatory and respiratory systems; E78.2 Mixed hyperlipidemia; E03.9 Hypothyroidism, unspecified; I11.9 Hypertensive heart disease without heart failure; L40.9 Psoriasis, unspecified; M35.3 Polymyalgia rheumatica; H40.9 Unspecified glaucoma; Z87.891 Personal history of nicotine dependence; Z95.0 Presence of cardiac pacemaker; Z79.899 Other long term (current) drug therapy; Z79.01 Long term (current) use of anticoagulants; Z79.890 Hormone replacement therapy; Z79.52 Long term (current) use of systemic steroids; Z88.2 Allergy status to sulfonamides; Z88.1 Allergy status to other antibiotic agents
CPT/HCPCS: 96376; 96374; 96375; 99285; 36415; 93005; 83880; 80053 ×2; 83735 ×2; 84484 ×2; 85025 ×2; 85610; 85730; 81001; 71046; G0378 ×2; J2270; J7512 ×2

== ENCOUNTER → 2023-05-23 | Outpatient (CLI) | payer MEDICARE ==
[2023-05-23 17:10] LABS: Basophils # (A) 0.04 X 10*3/uL (0.00-0.10); Basophils % (A) 0.3 %; Eosinophils # (A) 0.11 X 10*3/uL (0.04-0.35); Eosinophils % (A) 0.9 %; HCT 41.7 % (37.2-46.3); HGB 13.4 d/dL (12.0-15.0); Lymphocytes # (A) 1.13 X 10*3/uL (0.90-5.00); Lymphocytes % (A) 9.5 %; MCH 29.9 pg (27.0-32.0); MCHC 32.1 d/dL (32.0-37.0); MCV 93.1 FL (80.0-97.0); Mean Platelet Volume 9.6 FL (9.5-12.2); Monocytes # (A) 0.77 X 10*3/uL (0.20-1.00); Monocytes % (A) 6.5 %; NRBC Per 100 WBC 0 X 10*3/uL (0.00-0.01); Neutrophils # (A) 9.73 X 10*3/uL (1.80-7.70); Neutrophils % (A) 81.7 %; Platelet Count 291 X 10*3/uL (140-440); RBC 4.48 X 10*6/uL (4.10-5.20); RDW 13.7 % (11.5-14.5); WBC 11.91 X 10*3/uL (4.50-10.00)
[2023-05-23 17:18] LABS: ALT 21 U/L (8-44); AST 19 U/L (13-35); Albumin 3.9 d/dL (3.8-4.9); Albumin/Globulin Ratio 1.56 Ratio (1.60-3.17); Alkaline Phosphatase 58 U/L (41-126); Blood Urea Nitrogen 18.9 mg/dL (9.0-27.0); Calcium 9.5 mg/dL (8.7-10.3); Carbon Dioxide 26.7 mmol/L (21.6-31.8); Chloride 103 mmol/L (96-109); Chol/HDL Ratio 2.58 Ratio; Globulin 2.5 d/dL (1.6-3.3); Glucose 113 mg/dL (70-110); LDL Cholesterol,Calculated 44.7 mg/dL (0.0-131.0); Potassium 4.5 mmol/L (3.5-5.5); Sodium 141 mmol/L (135-145); Total Bilirubin 0.9 mg/dL (0.3-1.2); Total Protein 6.4 d/dL (6.2-8.2)
== END | disposition home or self-care (01) ==
LOC: LABWHC1 11:56
PROVIDERS: ATTEND Internal Medicine Rheumatology
DX: E78.2 Mixed hyperlipidemia (principal); M25.50 Pain in unspecified joint
CPT/HCPCS: 36415; 80053; 80061; 83036; 85025; 86140

== ENCOUNTER → 2023-08-13 | Outpatient (CLI) | payer MEDICARE ==
[2023-08-13 10:32] LABS: African American GFR (CKD) 62 (>60 ml/min/1.73 sqM); Blood Urea Nitrogen 20 mg/dL (7-17); Non-African American GFR(CKD) 54 (>60 ml/min/1.73 sqM)
--- NOTE | 2023-08-13 11:43 | CT ---
EXAMINATION TYPE: CT iac w con CT DLP: 273 mGycm, Automated exposure control for dose reduction was used. DATE OF EXAM: 08/13/2023 11:22 AM INDICATION: Patient age:Female; 78 years old; Reason for study: H91.90 hearing loss; [facility]. COMPARISON: 04/29/2021. TECHNIQUE: Multiple thin axial images were obtained through the temporal bones and internal auditory canals. Additional coronal reformatted images were obtained. 75 cc of Isovue-370 IV contrast was ut ilized. CT Contrast: Contrast used:100 mL of Isovue 300 with IV Contrast, none. FINDINGS: Right Temporal Bone: External Ear: The external auditory canal is unremarkable, The tympanic membrane is present and unrem arkable. Middle Ear: The ossicles demonstrate a normal appearance. Prussak's space is clear and the scutum i s intact. There is no evidence of osseous erosion and the tegmen tympani is intact. Inner Ear: Cochlea, vestibule and semi circular canals are unremarkable. No evidence of carotid loretta l dehiscence. Two and a half turns of the cochlea are identified. The vestibular aqueduct is not enl arged. Mastoid Air Cells: The mastoid air cells are clear. The tegmen mastoideum is intact. The aditus ad an trum is clear. Internal Auditory Canal: The internal auditory canal is unremarkable. Left Temporal Bone: External Ear: The external auditory canal is unremarkable, The tympanic membrane is present and unrem arkable. Middle Ear: The ossicles demonstrate a normal appearance. Prussak's space is clear and the scutum i s intact. There is no evidence of osseous erosion and the tegmen tympani is intact. Inner Ear: Cochlea, vestibule and semi circular canals are unremarkable. No evidence of carotid loretta l dehiscence. Two and a half turns of the cochlea are identified. The vestibular aqueduct is not enl arged. Mastoid Air Cells: The mastoid air cells are clear. The tegmen mastoideum is intact. The aditus ad an trum is clear. Internal Auditory Canal: The internal auditory canal is unremarkable. Other: Paranasal sinus disease with mucosal thickening most pronounced in the sphenoid and maxillary sinuses. No abnormal postcontrast enhancement. Atherosclerosis of the intracranial vasculature. IMPRESSION: 1. Normal internal auditory canal study. 2. Mild paranasal sinus disease partially visualized in the sphenoid sinuses and maxillary sinuses.
== END | disposition home or self-care (01) ==
LOC: RADCTMAIN 09:24
PROVIDERS: ATTEND Otolaryngology
DX: Z13.9 Encounter for screening, unspecified (principal); J34.89 Other specified disorders of nose and nasal sinuses; H91.90 Unspecified hearing loss, unspecified ear
CPT/HCPCS: 82565; 84520; 70481; 36415; Q9967

== ENCOUNTER → 2023-09-25 | Outpatient (CLI) | payer MEDICARE ==
[2023-09-26 02:03] LABS: ALT 19 U/L (8-44); AST 19 U/L (13-35); Albumin 4.1 g/dL (3.8-4.9); Albumin/Globulin Ratio 1.46 Ratio (1.60-3.17); Alkaline Phosphatase 78 U/L (41-126); BUN/Creat Ratio 17.75 Ratio (12.00-20.00); Blood Urea Nitrogen 21.3 mg/dL (9.0-27.0); Calcium 8.9 mg/dL (8.7-10.3); Carbon Dioxide 22.9 mmol/L (21.6-31.8); Chloride 104 mmol/L (96-109); Chol/HDL Ratio 2.84 Ratio; Globulin 2.8 g/dL (1.6-3.3); Glucose 97 mg/dL (70-110); LDL Cholesterol,Calculated 54.6 mg/dL (0.0-131.0); Potassium 4.6 mmol/L (3.5-5.5); Sodium 141 mmol/L (135-145); T4, Free (Free Thyroxine) 2.21 ng/dL (0.80-1.80); Total Bilirubin 0.5 mg/dL (0.3-1.2); Total Protein 6.9 g/dL (6.2-8.2)
== END | disposition home or self-care (01) ==
LOC: LABWHC1 14:16
PROVIDERS: ATTEND Internal Medicine
DX: I10 Essential (primary) hypertension (principal); E78.2 Mixed hyperlipidemia; I48.11 Longstanding persistent atrial fibrillation; E89.0 Postprocedural hypothyroidism
CPT/HCPCS: 36415; 80053; 80061; 84439; 84443

== ENCOUNTER → 2023-10-26 | Outpatient (CLI) | payer MEDICARE ==
[2023-10-26 08:31] LABS: HCT 47.2 % (34.0-46.0); HGB 14.8 gm/dL (11.4-16.0); MCH 29.2 pg (25.0-35.0); MCHC 31.4 g/dL (31.0-37.0); MCV 92.9 fL (80.0-100.0); Mean Platelet Volume 7.3; Platelet Count 238 k/uL (150-450); RBC 5.08 m/uL (3.80-5.40); RDW 13.8 % (11.5-15.5); WBC 8.1 k/uL (3.8-10.6)
[2023-10-26 08:41] LABS: INR 1.2 (<1.2); Prothrombin Time 12.6 sec (10.0-12.5)
[2023-10-26 08:45] LABS: African American GFR (CKD) 61 (>60 ml/min/1.73 sqM); Anion Gap 12 mmol/L; Blood Urea Nitrogen 22 mg/dL (7-17); Calcium 9.2 mg/dL (8.4-10.2); Carbon Dioxide 28 mmol/L (22-30); Chloride 102 mmol/L (98-107); Glucose 124 mg/dL (74-99); Non-African American GFR(CKD) 53 (>60 ml/min/1.73 sqM); Potassium 3.7 mmol/L (3.5-5.1); Sodium 142 mmol/L (137-145)
== END | disposition home or self-care (01) ==
LOC: LABWHC1 08:03
PROVIDERS: ATTEND Internal Medicine
DX: I48.19 Other persistent atrial fibrillation (principal)
CPT/HCPCS: 36415; 80048; 85027; 85610

== ENCOUNTER → 2023-11-19 | Outpatient (CLI) | payer MEDICARE ==
[2023-11-19 15:39] LABS: Basophils # (A) 0.06 X 10*3/uL (0.00-0.10); Basophils % (A) 0.7 %; Eosinophils # (A) 0.17 X 10*3/uL (0.04-0.35); HCT 47.2 % (37.2-46.3); HGB 14.7 g/dL (12.0-15.0); Lymphocytes # (A) 1.61 X 10*3/uL (0.90-5.00); Lymphocytes % (A) 18.5 %; MCHC 31.1 g/dL (32.0-37.0); MCV 93.1 FL (80.0-97.0); Monocytes # (A) 0.88 X 10*3/uL (0.20-1.00); Monocytes % (A) 10.1 %; NRBC Per 100 WBC 0 X 10*3/uL (0.00-0.01); Neutrophils # (A) 5.92 X 10*3/uL (1.80-7.70); Neutrophils % (A) 68.2 %; Platelet Count 275 X 10*3/uL (140-440); RBC 5.07 X 10*6/uL (4.10-5.20); RDW 14.5 % (11.5-14.5); WBC 8.68 X 10*3/uL (4.50-10.00)
[2023-11-19 15:48] LABS: ALT 14 U/L (8-44); AST 20 U/L (13-35); Blood Urea Nitrogen 18.4 mg/dL (9.0-27.0); C Reactive Protein <0.30 mg/dL (0.00-0.80)
[2023-11-19 17:03] LABS: Erythrocyte Sedimentation Rate 9 mm/Hr (0-30)
== END | disposition home or self-care (01) ==
LOC: LABWHC1 08:32
PROVIDERS: ATTEND Internal Medicine Rheumatology
DX: M25.50 Pain in unspecified joint (principal); M06.4 Inflammatory polyarthropathy; Z79.01 Long term (current) use of anticoagulants
CPT/HCPCS: 36415; 82565; 84450; 84460; 84520; 85025; 85652; 86140

== ENCOUNTER → 2023-12-28 | Outpatient (CLI) | payer MEDICARE ==
[2023-12-28 18:24] LABS: BUN/Creat Ratio 19.56 Ratio (12.00-20.00); Blood Urea Nitrogen 17.6 mg/dL (9.0-27.0); Carbon Dioxide 28.4 mmol/L (21.6-31.8); Chloride 103 mmol/L (96-109); Chol/HDL Ratio 2.63 Ratio; Glucose 93 mg/dL (70-110); LDL Cholesterol,Calculated 60.3 mg/dL (0.0-131.0); Potassium 4.5 mmol/L (3.5-5.5); Sodium 142 mmol/L (135-145)
[2023-12-28 18:25] LABS: Calcium 9.4 mg/dL (8.7-10.3)
== END | disposition home or self-care (01) ==
LOC: LABWHC1 12:05
PROVIDERS: ATTEND Nurse Practitioner Adult Health
DX: I48.11 Longstanding persistent atrial fibrillation (principal); E78.2 Mixed hyperlipidemia
CPT/HCPCS: 36415; 80048; 80061

== ENCOUNTER → 2024-01-21 | Outpatient (CLI) | payer MEDICARE ==
[2024-01-21 16:18] LABS: ALT 14 U/L (8-44); AST 21 U/L (13-35); Blood Urea Nitrogen 21.5 mg/dL (9.0-27.0); Carbon Dioxide 27.1 mmol/L (21.6-31.8); Chloride 102 mmol/L (96-109); Sodium 141 mmol/L (135-145)
[2024-01-21 16:57] LABS: Basophils # (A) 0.06 X 10*3/uL (0.00-0.10); Basophils % (A) 0.8 %; Eosinophils # (A) 0.18 X 10*3/uL (0.04-0.35); Eosinophils % (A) 2.4 %; HCT 40.5 % (37.2-46.3); Lymphocytes # (A) 1.57 X 10*3/uL (0.90-5.00); Lymphocytes % (A) 20.6 %; MCH 29.3 pg (27.0-32.0); MCHC 32.1 g/dL (32.0-37.0); MCV 91.2 FL (80.0-97.0); Monocytes # (A) 0.73 X 10*3/uL (0.20-1.00); Monocytes % (A) 9.6 %; NRBC Per 100 WBC 0 X 10*3/uL (0.00-0.01); Neutrophils # (A) 5.06 X 10*3/uL (1.80-7.70); Neutrophils % (A) 66.2 %; Platelet Count 213 X 10*3/uL (140-440); RBC 4.44 X 10*6/uL (4.10-5.20); RDW 14.6 % (11.5-14.5); WBC 7.63 X 10*3/uL (4.50-10.00)
[2024-01-21 18:14] LABS: Erythrocyte Sedimentation Rate 40 mm/Hr (0-30)
== END | disposition home or self-care (01) ==
LOC: LABWHC1 10:59
PROVIDERS: ATTEND Internal Medicine Interventional Cardiology
DX: M25.50 Pain in unspecified joint (principal); M06.4 Inflammatory polyarthropathy; E87.8 Other disorders of electrolyte and fluid balance, not elsewhere classified; Z79.01 Long term (current) use of anticoagulants
CPT/HCPCS: 36415; 80051; 82565; 84450; 84460; 84520; 85025; 85652; 86140

== ENCOUNTER → 2024-02-14 | Outpatient (CLI) | payer MEDICARE ==
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
== END | disposition home or self-care (01) ==
LOC: RADUSWWP 10:34
PROVIDERS: ATTEND Internal Medicine
DX: M79.661 Pain in right lower leg (principal)

== ENCOUNTER → 2024-04-16 | Outpatient (CLI) | payer MEDICARE ==
[2024-04-16 18:33] LABS: Basophils # (A) 0.06 X 10*3/uL (0.00-0.10); Basophils % (A) 0.7 %; Eosinophils # (A) 0.31 X 10*3/uL (0.04-0.35); Eosinophils % (A) 3.8 %; HGB 12.3 g/dL (12.0-15.0); Lymphocytes # (A) 1.56 X 10*3/uL (0.90-5.00); Lymphocytes % (A) 18.9 %; MCH 29.7 pg (27.0-32.0); MCHC 31.5 g/dL (32.0-37.0); MCV 94.2 FL (80.0-97.0); Mean Platelet Volume 10.3 FL (9.5-12.2); Monocytes # (A) 0.93 X 10*3/uL (0.20-1.00); Monocytes % (A) 11.3 %; NRBC Per 100 WBC 0 X 10*3/uL (0.00-0.01); Neutrophils # (A) 5.38 X 10*3/uL (1.80-7.70); Neutrophils % (A) 65.1 %; Platelet Count 232 X 10*3/uL (140-440); RBC 4.14 X 10*6/uL (4.10-5.20); RDW 13.4 % (11.5-14.5); WBC 8.26 X 10*3/uL (4.50-10.00)
[2024-04-16 20:10] LABS: ALT 11 U/L (8-44); AST 19 U/L (13-35); Blood Urea Nitrogen 25.1 mg/dL (9.0-27.0); C Reactive Protein <0.30 mg/dL (0.00-0.80)
[2024-04-16 20:11] LABS: Calcium 9.5 mg/dL (8.7-10.3); T4, Free (Free Thyroxine) 2.17 ng/dL (0.80-1.80)
== END | disposition home or self-care (01) ==
LOC: LABWHC1 13:10
PROVIDERS: ATTEND Internal Medicine
DX: E89.0 Postprocedural hypothyroidism (principal); M06.4 Inflammatory polyarthropathy; M81.0 Age-related osteoporosis without current pathological fracture; M25.50 Pain in unspecified joint; Z79.01 Long term (current) use of anticoagulants
CPT/HCPCS: 36415; 82306; 82310; 82565; 84439; 84443; 84450; 84460; 84481; 84520; 85025; 86140

== ENCOUNTER 2024-05-13 10:00 | Day surgery (SDC) | payer MEDICARE ==
[2024-05-13 10:30] VITALS: TEMP 97.7
[2024-05-13] MEDS: IV FLUID CONTINUATION 1,000 ML IV ONE (10:46)
[2024-05-13] MEDS: LACTATED RINGERS 1,000 ML IV SCH (10:46)
[2024-05-13 10:48] LABS: Glucose,Whole Blood 81 mg/dL (70-110)
[2024-05-13] MEDS ORDERED: PROPOFOL 10 MG/ML 20 ML VIAL IV ONE (10:53)
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
--- NOTE | 2024-05-13 11:10 | P.PCN ---
Date of Procedure: 05/13/24 Procedure(s) Performed: PREOPERATIVE DIAGNOSIS: Screening with history of polyp POSTOPERATIVE DIAGNOSIS: Diverticulosis PROCEDURE: Colonoscopy ANESTHESIA: MAC SURGEON: Eduardo Ocampo M.D. SPECIMENS: None ENDOSCOPIC PROCEDURE: The patient was placed on the endoscopy table in the left decubitus position. The Olympus colonoscope was inserted into the anus and passed under direct visualization to the base of the cecum. The appendiceal orifice was visualized. From that point the scope was slowly withdrawn inspecting all surfaces carefully. There were no neoplastic inflammatory or polypoid lesions throughout the cecum, ascending, transverse, descending, sigmoid and rectum. There was extensive diverticulosis noted throughout the colon. Digital rectal examination was normal. The patient was taken to the recovery room in stable condition per anesthesia guidelines. RECOMMENDATIONS: Resume diet. Repeat colonoscopy 7 years.
[2024-05-13 11:35] VITALS: BP 116/56; PULSE 65; RESP 18
== END 2024-05-13 11:58 | disposition home or self-care (01) ==
LOC: ORWHC2ENDO 10:00
PROVIDERS: ATTEND Surgery
DX: Z12.11 Encounter for screening for malignant neoplasm of colon (principal); K57.30 Diverticulosis of large intestine without perforation or abscess without bleeding; Z86.010 Personal history of colon polyps; I48.0 Paroxysmal atrial fibrillation; K21.9 Gastro-esophageal reflux disease without esophagitis; I10 Essential (primary) hypertension; E78.5 Hyperlipidemia, unspecified; G47.30 Sleep apnea, unspecified; E03.9 Hypothyroidism, unspecified; K90.0 Celiac disease; K86.81 Exocrine pancreatic insufficiency; M35.3 Polymyalgia rheumatica; Z86.718 Personal history of other venous thrombosis and embolism; Z95.0 Presence of cardiac pacemaker; Z87.891 Personal history of nicotine dependence; Z87.19 Personal history of other diseases of the digestive system; Z88.2 Allergy status to sulfonamides; Z91.013 Allergy to seafood; Z88.1 Allergy status to other antibiotic agents; Z79.890 Hormone replacement therapy; Z79.01 Long term (current) use of anticoagulants; Z79.899 Other long term (current) drug therapy
CPT/HCPCS: J2704; G0121

== ENCOUNTER → 2024-07-02 | Outpatient (CLI) | payer MEDICARE ==
--- NOTE | 2024-07-02 12:41 | CT ---
EXAMINATION TYPE: CT chest wo con CT DLP: 475.3 mGycm, Automated exposure control for dose reduction was used. DATE OF EXAM: 07/02/2024 9:57 AM COMPARISON: 03/18/2021 CLINICAL INDICATION: Female, 79 years old with history of R91.1 Pulmonary nodule,left; PHH, nodules TECHNIQUE: Multiple axial images were obtained through the chest. Sagittal and coronal reformats were created for review. Contrast used: mL of (None if empty) Oral contrast used: (None if empty) FINDINGS: LUNGS/ PLEURA: No new or enlarging pulmonary nodules. Mild centrilobular emphysema changes. No focal consolidation, pneumothorax or pleural effusion. Parenchymal scarring in the left lung apex. AIRWAY: Patent and unremarkable. HEART: The heart is mildly increased in size..Atherosclerosis of the arterial vasculature. Cardiac co nduction leads terminating in the right ventricle and right atrium. Mitral valve annular calcificatio ns versus repair changes with high density artifact around the valve. MEDIASTINUM: No gross evidence of adenopathy. VASCULATURE: No aortic aneurysm. MUSCULOSKELETAL: Moderate disc degeneration changes are present throughout the thoracolumbar spine. SOFT TISSUES/LYMPH NODES: Unremarkable. LOWER NECK: No significant findings. UPPER ABDOMEN: Large right renal cyst. Left simple appearing renal cysts. Right upper quadrant cholec ystectomy clips. IMPRESSION: 1. No clinically significant pulmonary nodules. Apical scarring in the lung apices.. 2. No evidence for acute process. 3. Cardiomegaly with cardiac conduction leads in appropriate position. 4. Moderate degeneration changes spine. [facility], , 07/02/2024 12:38 PM
== END | disposition home or self-care (01) ==
LOC: RADCTMAIN 09:30
PROVIDERS: ATTEND Internal Medicine
DX: R91.1 Solitary pulmonary nodule
CPT/HCPCS: 71250

== ENCOUNTER → 2024-07-02 | Outpatient (CLI) | payer MEDICARE ==
[2024-07-02 15:34] LABS: ALT 10 U/L (8-44); AST 18 U/L (13-35); Albumin 4.1 g/dL (3.8-4.9); Albumin/Globulin Ratio 1.52 Ratio (1.60-3.17); Alkaline Phosphatase 81 U/L (41-126); Blood Urea Nitrogen 17.7 mg/dL (9.0-27.0); Calcium 9.3 mg/dL (8.7-10.3); Carbon Dioxide 21.8 mmol/L (21.6-31.8); Chloride 108 mmol/L (96-109); Chol/HDL Ratio 2.49 Ratio; Globulin 2.7 g/dL (1.6-3.3); Glucose 102 mg/dL (70-110); LDL Cholesterol,Calculated 60.1 mg/dL (0.0-131.0); Potassium 4.6 mmol/L (3.5-5.5); Sodium 141 mmol/L (135-145); Total Bilirubin 0.5 mg/dL (0.3-1.2); Total Protein 6.8 g/dL (6.2-8.2); VLDL Calculation 19.44 mg/dL (5.00-40.00)
== END | disposition home or self-care (01) ==
LOC: LABWHC1 10:00
PROVIDERS: ATTEND Internal Medicine Interventional Cardiology
CPT/HCPCS: 36415; 80053; 80061

== ENCOUNTER → 2024-07-25 | Outpatient (CLI) | payer MEDICARE ==
[2024-07-25 13:36] LABS: HCT 40.2 % (34.0-46.0); HGB 13.3 gm/dL (11.4-16.0); Mean Platelet Volume 7.6; Platelet Count 251 k/uL (150-450); RBC 4.42 m/uL (3.80-5.40); RDW 13.9 % (11.5-15.5); WBC 6.8 k/uL (3.8-10.6)
[2024-07-25 13:57] LABS: Partial Thromboplastin Time 24.7 sec (22.0-30.0); Prothrombin Time 11.1 sec (10.0-12.5)
[2024-07-25 14:16] LABS: African American GFR (CKD) 58 (>60 ml/min/1.73 sqM); Anion Gap 6 mmol/L; Blood Urea Nitrogen 18 mg/dL (7-17); Calcium 9.3 mg/dL (8.4-10.2); Carbon Dioxide 26 mmol/L (22-30); Chloride 108 mmol/L (98-107); Glucose 92 mg/dL (74-99); Non-African American GFR(CKD) 50 (>60 ml/min/1.73 sqM); Potassium 4.4 mmol/L (3.5-5.1); Sodium 140 mmol/L (137-145)
== END | disposition home or self-care (01) ==
LOC: LABWHC1 12:00
PROVIDERS: ATTEND Internal Medicine
CPT/HCPCS: 36415; 80048; 82103; 85027; 85610; 85730

== ENCOUNTER → 2024-08-20 | Outpatient (CLI) | payer MEDICARE ==
[2024-08-20 18:54] LABS: T4, Free (Free Thyroxine) 2.03 ng/dL (0.80-1.80)
== END | disposition home or self-care (01) ==
LOC: LABWHC1 13:28
PROVIDERS: ATTEND Internal Medicine
DX: E03.9 Hypothyroidism, unspecified (principal)
CPT/HCPCS: 36415; 84439; 84443

== ENCOUNTER → 2024-09-08 | Outpatient (CLI) | payer MEDICARE ==
--- NOTE | 2024-09-08 12:20 | XR ---
EXAMINATION TYPE: XR chest 2V DATE OF EXAM: 09/08/2024 12:11 PM COMPARISON: Chest radiographs from 04/29/2021, CT chest 07/02/2024 TECHNIQUE: XR chest 2V Frontal and lateral views of the chest. CLINICAL INDICATION:Female, 79 years old with history of R05.1 ACUTE COUGH; FINDINGS: Lungs/Pleura: There is flattening of the diaphragm with increased lucency of the lungs. No evidence o f pneumothorax, pleural effusion or focal consolidation. Biapical pleural-parenchymal scarring. Pulmonary vascularity: Unremarkable. Heart/mediastinum: Cardiomediastinal silhouette is prominent in size. Atherosclerotic calcifications are seen in the aorta. Two lead cardiac conduction device overlying the left hemithorax with lead ti ps projecting over the right ventricle and right atrium. Musculoskeletal: No acute osseous pathology. IMPRESSION: 1. No acute cardiopulmonary disease process. 2. COPD changes. [facility], , 09/08/2024 12:17 PM
== END | disposition home or self-care (01) ==
LOC: RADXRMAIN 11:47
PROVIDERS: ATTEND Internal Medicine
DX: J44.9 Chronic obstructive pulmonary disease, unspecified (principal); R05.1 Acute cough
CPT/HCPCS: 71046

== ENCOUNTER → 2024-10-03 | Outpatient (CLI) | payer MEDICARE ==
[2024-10-03 12:19] LABS: African American GFR (CKD) 67 (>60 ml/min/1.73 sqM); Blood Urea Nitrogen 20 mg/dL (7-17); Non-African American GFR(CKD) 58 (>60 ml/min/1.73 sqM)
--- NOTE | 2024-10-03 13:11 | CT ---
EXAMINATION TYPE: CT angio chest CT DLP: 418.2 mGycm, Automated exposure control for dose reduction was used. DATE OF EXAM: 10/03/2024 12:44 PM COMPARISON: CT chest 07/02/2024, 03/18/2021, CTA Chest 02/19/2021 CLINICAL INDICATION:Female, 79 years old with history of ELEVATED D-DIMER R79.89; elevated d-dimer, S OB TECHNIQUE/CONTRAST: CTA scan of the thorax is performed with IV Contrast, patient injected with 80cc mL of Isovue 370, pu lmonary embolism protocol. MIP images are created and reviewed. FINDINGS: Pulmonary Artery: There is no evidence for a filling defect within the pulmonary vasculature to sugge st acute pulmonary embolism. The pulmonary artery is dilated measuring up to 3.9 cm in transverse di mension. Lungs/Pleura: The bilateral apices are not included in the [id number]. No evidence of focal consol idation, pleural effusion or pneumothorax. Biapical pleural-parenchymal scarring. Mild paraseptal emp hysematous changes. Minimal bilateral lower lobe dependent subsegmental atelectasis. No suspicious pu lmonary nodule or mass. Airway: Large airways are patent. Heart: The heart is mildly enlarged for size. Left chest wall 2 lead cardiac pacemaking device with l ze terminating in the right atrium and right ventricle. Vasculature: No evidence of aortic aneurysm. Mild atherosclerotic calcification of the aorta and its branches. Mediastinum: No enlarged lymph nodes greater than 1 cm short axis. Musculoskeletal: Mild to moderate degenerative disc disease changes are present throughout the thorac olumbar spine. No acute osseous abnormality. Soft Tissues: Unremarkable. Lower neck: Not included in the [id number]. Upper Abdomen: Large renal cyst redemonstrated measuring up to 10.6 cm. Gallbladder is surgically abs ent. Small hiatal hernia.. IMPRESSION: 1. No evidence of pulmonary embolism. 2. Dilated main pulmonary artery consistent with pulmonary arterial hypertension again. 3. Mild COPD changes. 4. Cardiomegaly. [facility], , 10/03/2024 1:08 PM
== END | disposition home or self-care (01) ==
LOC: RADCTMAIN 11:28
PROVIDERS: ATTEND Internal Medicine
DX: J44.9 Chronic obstructive pulmonary disease, unspecified (principal); R79.89 Other specified abnormal findings of blood chemistry; I51.7 Cardiomegaly; I27.21 Secondary pulmonary arterial hypertension; N28.1 Cyst of kidney, acquired
CPT/HCPCS: 82565; 84520; 71275; 36415; Q9967

== ENCOUNTER → 2024-10-09 | Outpatient (CLI) | payer MEDICARE ==
--- NOTE | 2024-10-10 18:24 | US ---
EXAMINATION TYPE: US venous doppler duplex LE BI DATE OF EXAM: 10/09/2024 2:25 PM COMPARISON: US(02/14/2024) CLINICAL INDICATION: Female, 79 years old with history of R79.89 ELEVATED D DIMER; , Pain TECHNIQUE: The lower extremity deep venous system is examined utilizing real time linear array sonog sinan with graded compression, color doppler sonography, and spectral doppler. SIDE PERFORMED: Bilateral FINDINGS: VESSELS IMAGED: Common Femoral Vein Deep Femoral Vein Greater Saphenous Vein * Femoral Vein Popliteal Vein Small Saphenous Vein * Proximal Calf Veins (* superficial vessels) Right Leg: Negative for DVT, Color Doppler imaging shows patency of the vessels. Spectral waveforms are within normal limits. Left Leg: Negative for DVT, Color Doppler imaging shows patency of the vessels. Spectral waveforms a re within normal limits. IMPRESSION: No ultrasound evidence for deep venous thrombosis. [facility], , 10/10/2024 6:21 PM
== END | disposition home or self-care (01) ==
LOC: RADUSWWP 13:21
PROVIDERS: ATTEND Internal Medicine
DX: R79.89 Other specified abnormal findings of blood chemistry (principal)
CPT/HCPCS: 93970

== ENCOUNTER → 2024-12-16 | Outpatient (CLI) | payer MEDICARE ==
[2024-12-16 18:11] LABS: Basophils # (A) 0.05 X 10*3/uL (0.00-0.10); Basophils % (A) 0.6 %; Eosinophils # (A) 0.19 X 10*3/uL (0.04-0.35); Eosinophils % (A) 2.4 %; HCT 39.3 % (37.2-46.3); HGB 12.6 g/dL (12.0-15.0); Lymphocytes # (A) 1.66 X 10*3/uL (0.90-5.00); Lymphocytes % (A) 20.7 %; MCH 28.5 pg (27.0-32.0); MCHC 32.1 g/dL (32.0-37.0); MCV 88.9 FL (80.0-97.0); Monocytes # (A) 0.75 X 10*3/uL (0.20-1.00); Monocytes % (A) 9.4 %; NRBC Per 100 WBC 0 X 10*3/uL (0.00-0.01); Neutrophils # (A) 5.33 X 10*3/uL (1.80-7.70); Neutrophils % (A) 66.5 %; Platelet Count 232 X 10*3/uL (140-440); RBC 4.42 X 10*6/uL (4.10-5.20); RDW 13.8 % (11.5-14.5); WBC 8.01 X 10*3/uL (4.50-10.00)
[2024-12-16 18:39] LABS: ALT 13 U/L (8-44); AST 19 U/L (13-35); Alkaline Phosphatase 76 U/L (41-126); Calcium 9.3 mg/dL (8.7-10.3)
[2024-12-16 18:46] LABS: Erythrocyte Sedimentation Rate 33 mm/Hr (0-30)
== END | disposition home or self-care (01) ==
LOC: LABWHC1 12:50
PROVIDERS: ATTEND Internal Medicine Rheumatology
DX: M25.50 Pain in unspecified joint (principal); M06.4 Inflammatory polyarthropathy; M81.0 Age-related osteoporosis without current pathological fracture; M35.3 Polymyalgia rheumatica; M81.6 Localized osteoporosis [Lequesne]; Z79.52 Long term (current) use of systemic steroids; Z79.01 Long term (current) use of anticoagulants
CPT/HCPCS: 36415; 82306; 82310; 82565; 83970; 84075; 84450; 84460; 84520; 85025; 85652

== ENCOUNTER → 2025-02-18 | Outpatient (CLI) | payer MEDICARE ==
[2025-02-18 19:11] LABS: T4, Free (Free Thyroxine) 2.03 ng/dL (0.80-1.80)
== END | disposition home or self-care (01) ==
LOC: LABWHC1 12:28
PROVIDERS: ATTEND Internal Medicine
DX: E03.9 Hypothyroidism, unspecified (principal)
CPT/HCPCS: 36415; 84439; 84443